=== PATIENT | male | born 1965 | race Caucasian/White ===

== ENCOUNTER 2020-08-13 17:50 | Inpatient (IN) | payer OTHER, SELFPAY ==
[2020-08-13 18:13] LABS: #Lymphocytes 1.3 thou/uL (1.20-3.40); #Monocytes 0.2 thou/uL (0.11-0.59); #Neutrophils 10.4 thou/uL (1.40-6.50); %Basophils 0.1 % (0.0-1.0); %Eosinophils 0.1 % (0.0-10.0); %Lymphocytes 11.1 % (21.0-51.0); %Monocytes 1.9 % (0.0-10.0); %Neutrophils 86.8 % (42.0-75.0); Hemoglobin 15.9 g/dL (14.0-18.0); Mean Corpuscular HGB CONC 33.6 g/dL (32.0-36.0); Mean Corpuscular Hemoglobin 31.7 pg (27.0-31.0); Mean Corpuscular Volume 94.4 fL (78.0-98.0); Mean Platelet Volume 7.8 fL (7.4-10.4); Platelet Count 459 thou/uL (130-400); RBC Distribution Width 12.6 % (11.5-14.5); Red Blood Cell (RBC) Count 5.01 mill/uL (4.70-6.10); White Blood Cell (WBC) Count 11.9 thou/uL (4.8-10.8)
[2020-08-13] MEDS ORDERED: Azithromycin 500 MG VIAL ONE (18:21)
[2020-08-13] MEDS ORDERED: Albuterol 200 PUFF (6.7GM INHALER) ONE ×2 (18:21→18:27)
[2020-08-13] MEDS ORDERED: cefTRIAXone\\ROCEPHIN 2 GM VIAL ONE (18:21)
[2020-08-13] MEDS ORDERED: Dexamethasone 10 MG/ML VIAL ONE (18:21)
[2020-08-13] MEDS ORDERED: Albuterol Sulfate 2.5 mg/3 ml Neb ONE (18:28)
[2020-08-13 18:34] LABS: ALT (SGPT) 160 U/L (8-55); AST (SGOT) 234 U/L (5-34); Albumin 3.5 g/dL (3.5-5.0); Alkaline Phosphatase 94 U/L (40-110); Anion Gap 19 mmol/L (10-20); BUN (Urea Nitrogen) 30 mg/dL (8.4-25.7); Bilirubin, Total 1.9 mg/dL (0.2-1.2); Calc. Creatinine Clearance 0 mL/min (70-130); Calcium 8.3 mg/dL (7.8-10.44); Carbon Dioxide 22 mmol/L (22-29); Chloride 101 mmol/L (98-107); Estimated GFR-MDRD 40; Globulin 4.2 g/dL (2.4-3.5); Glucose 146 mg/dL (70-105); Potassium 3.3 mmol/L (3.5-5.1); Protein, Total 7.7 g/dL (6.0-8.3); Sodium 139 mmol/L (136-145)
[2020-08-13 18:45] LABS: Actual Bicarbonate (HCO3a) 24.1 mEq/L (22-28); Analyzer IN Cardio ER; Base Excess (BEa) 2.4 mEq/L (-2.0 to +3.0); CO2 Tension 29.7 mmHg (35.0-45.0); Calcium, Ionized (arterial) 0.99 mmol/L (1.12-1.30); Carboxyhemoglobin (COHb) 1.1 gm% (0.0-3.0); Hemoglobin (Hb) 14.7 g/dL (14.0-18.0); Potassium - ABG Lab 3.08 mmol/L (3.70-5.30); pH, Arterial 7.53 (7.35-7.45)
[2020-08-13 18:48] LABS: O2 Tension (PaO2), arterial 46.8 mmHg (80.0-100.0)
[2020-08-13 18:49] LABS: ALV-art Gradient 486.475 mmHg (0-20); Puncture Site RRA
--- NOTE | 2020-08-13 18:58 | RAD ---
PORTABLE CHEST: 08/13/20 HISTORY: Cough. No comparison. There are hazy alveolar infiltrates seen in the right mid lung and right lower lung. Ultrasound hazy patchy infiltrates in the left lower lobe. IMPRESSION: Bilateral infiltrates. POS: AGW
[2020-08-13] MEDS ORDERED: Acetaminophen 500 MG TAB ONE (19:18)
[2020-08-13 19:55] LABS: SARS-CoV-2 NAA Rapid Test DETECTED (NotDetected)
--- NOTE | 2020-08-13 20:40 | CT ---
CTA CHEST WITH CONTRAST: 08/13/20 Axial tomograms obtained with multiplanar reconstructions and 3D postprocessing. INDICATIONS: Shortness of breath and cough. Elevated D-dimer. FINDINGS: Pulmonary arteries show adequate opacification. Distal pulmonary arteries are not adequately evaluate d due to the diffuse infiltrates and artifact. There is no evidence of possible pulmonary embolus to the segmental levels. Thoracic aorta is unremarkable. Nonspecific mediastinal and hilar adenopathy. Review of the lung justin show extensive bilateral ground glass infiltrates involving all lobes of ed th lungs. These are more pronounced in the periphery and are consistent with COVID pneumonia. Review of osseous structures show mild compression deformity of a mid thoracic vertebra. IMPRESSION: 1. No evidence of proximal pulmonary embolus to the segmental level. 2. Nonspecific mediastinal and hilar adenopathy. Extensive bilateral ground glass type infiltrat es consistent with COVID pneumonia. POS: AGW
[2020-08-13 21:27] LABS: Lactic Acid 1.9 mmol/L (0.5-2.2)
--- NOTE | 2020-08-13 21:34 | PDOC.FPRHP ---
- History of Present Illness Chief Complaint: SOB History of Present Illness: Patient is a 54 year old male with a history of anxiety and depression who presented to the ED with complains of SOB and cough x 7 days that acutely worsened this am. Denies headache, vision changes, chest pain, palpitations, nausea and diaphoresis. Patient reports pulse ox of 50% at home. EMS was called. Patient placed on nonrebreather with sats mid 80s. ED Course: In the ED, patient was transitioned from nonrebreather to HFNC. Sats remained in 80s with tachypnea, therefore patient was placed on bipap. Sats now 95-100%. Acetaminohpen 1g, Proventil 4 puffs, Azithro 500mg, Rocephin 2g and dexamethasone 10mg were administered - Allergies/Adverse Reactions Allergies Allergy/AdvReac Type Severity Reaction Status Date / Time No Known Drug Allergies Allergy Verified 08/13/20 23:59 - Home Medications Medication Instructions Recorded Confirmed Type Carisoprodol 350 mg PO Q4HR 08/14/20 08/14/20 History Cetirizine HCl [All Day Allergy] 10 mg PO PRN PRN 08/14/20 08/14/20 History Indomethacin 50 mg PO HS 08/14/20 08/14/20 History Zolpidem Tartrate [Ambien CR] 12.5 mg PO HS 08/14/20 08/14/20 History traMADol HCl [Tramadol HCl] 50 mg PO BID PRN 08/14/20 08/14/20 History - History PMHx: Depression, anxiety PSHx: Unable to assess as patient was unable to answer clearly on bipap FHx: Noncontributory Social: Lives at home with . Active smoker. - Review of Systems General: denies: fever/chills, fatigue Eyes: denies: vision changes ENT: denies: nasal congestion, rhinorrhea Respiratory: reports: cough, shortness of breath. denies: congestion Cardiovascular: denies: chest pain, edema Gastrointestinal: denies: nausea, abdominal pain Skin: denies: rashes, jaundice Musculoskeletal: denies: pain Neurological: denies: weakness - Vital signs BP: [111/82] HR: [93] RR: [40] Tmax: [99.8F] Pox: [96]% on [bipap] Wt: [90kg] - Physical Exam Constitutional: NAD -Constitutional: Bipap in place, difficult to communicate answers effectively as a result. Unable to fully assess A&O. HEENT: normocephalic and atraumatic, no scleral icterus, MMM Neck: FROM, trachea midline Chest: no-tender to palpation Heart: no edema -Heart: Unable to assess due to lack of stethoscope Lungs: no respiratory distress, no retractions Abdomen: soft, non-tender Musculoskeletal: normal structure, ROM grossly normal Neurological: no focal deficit Skin: no rash/lesions Heme/Lymphatic: no unusual bruising or bleeding Psychiatric: normal mood and affect FMR H&P: Results - Labs Result Diagrams: 08/15/20 03:03 08/15/20 03:03 Lab results: WBC 11.9 thou/uL (4.8-10.8) H 08/13/20 18:01 Hgb 15.9 g/dL (14.0-18.0) 08/13/20 18:01 Hct 47.3 % (42.0-52.0) 08/13/20 18:01 MCV 94.4 fL (78.0-98.0) 08/13/20 18:01 Plt Count 459 thou/uL (130-400) H 08/13/20 18:01 Neutrophils % 86.8 % (42.0-75.0) H 08/13/20 18:01 ABG pH 7.53 (7.35-7.45) H 08/13/20 18:40 ABG pCO2 29.7 mmHg (35.0-45.0) L 08/13/20 18:40 ABG pO2 46.8 mmHg (80.0-100.0) L* 08/13/20 18:40 Sodium 139 mmol/L (136-145) 08/13/20 18:01 Potassium 3.3 mmol/L (3.5-5.1) L 08/13/20 18:01 Chloride 101 mmol/L (98-107) 08/13/20 18:01 Carbon Dioxide 22 mmol/L (22-29) 08/13/20 18:01 BUN 30 mg/dL (8.4-25.7) H 08/13/20 18:01 Creatinine 1.76 mg/dL (0.7-1.3) H 08/13/20 18:01 Glucose 146 mg/dL (70-105) H 08/13/20 18:01 Lactic Acid 1.9 mmol/L (0.5-2.2) 08/13/20 20:57 Calcium 8.3 mg/dL (7.8-10.44) 08/13/20 18:01 Total Bilirubin 1.9 mg/dL (0.2-1.2) H 08/13/20 18:01 AST 234 U/L (5-34) H 08/13/20 18:01 ALT 160 U/L (8-55) H 08/13/20 18:01 Alkaline Phosphatase 94 U/L (40-110) 08/13/20 18: Serum Total Protein 7.7 g/dL (6.0-8.3) 08/13/20 18:01 Albumin 3.5 g/dL (3.5-5.0) 08/13/20 18:01 - EKG Interpretation EKG: Sinus tachycardia at 109. Premature atrial complex present. FMR H&P: A/P - Plan Acute hypoxic respiratory failure 2/2 COVID Pneumonia Reported symptom onset 08/06. COVID + test on admission 08/13. CXR and CTA showed bilateral infiltrates c/w covid pna, no PE noted. CRP 20. Lactic 2.6- >1.9. ABG showed respiratory alkalosis without metabolic compensation, unsure if was already on bipap at time of draw. - Admit to inpatient IMCU - Received Azithro, Rocephin in ED. Will not continue abx at this time. - Dimer 2.68. Trend daily - Order ferritin, procalcitonin labs - F/u blood culture - Received dexamethasone in ED. Continue on admission. - Order convalescent plasma. Does not meet criteria for remdesivir. - Pulmonology consult in am Elevated liver enzymes AST 234, ALT 160, bili 1.9 in ED. Likely 2/2 COVID - F/u with am labs - No reported hx of liver disease KEYA vs CKD Unknown baseline. Cr 1.76 with BUN 30. - Trend with am labs - Maintenance IVF Indeterminate troponin Denies chest pain. EKG showed t wave inversion in lead 3 with tachycardia, otherwise no ST segment changes. -Trop 0.046, continue to trend Hypokalemia K 3.3 in ED. - Replace with 40meq - Monitor with am labs Thrombocytosis - Likely reactive - Monitor with am labs Anxiety Depression -Medications unknown -Call pharmacy for med rec in am as patient does not know his medication list PCP: Frank DVT PPx: Lovenox Dispo: admit to IMCU on bipap, expected LOS > 48 hours FMR H&P: Upper Level - Plan Date/Time: 08/13/202130 ITraci, have evaluated this patient and agree with findings/plan as outlined by wedding planning internship resident. Pertinent changes/additions are listed here. 54 yo M presents for hypoxia, reported 50% at home, was satting 80s with mask with EMS, now satting well on Bipap. Reports 1 weeks history of symptoms. Patient unable to describe what these symptoms are. History very difficult to obtain from patient due to masks, bipap. Called , but left message. Given tylenol, proventil, azithromycin, ceftriaxone, dexamethasone, 1L in ED PE: Gen: NAD, on bipap HEENT: Moist MM Heart: no stethescope available Lungs: No increased work of breathing, on bipap Abd: soft, nontender Ext: no cyanosis or edema Skin: no rashes Psych: unable to assess alert and oriented questions Acute hypoxic respiratory failure 2/2 COVID Pneumonia - Possible symptoms onset 08/06, COVID + test on admission 08/13 - CXR and CTA with bilateral infiltrates c/w covid pna, no PE - Dimer 2.68, crp 20 - Lactic 2.6->1.9 - ABG showed respiratory alkalosis without metabolic compensation, unsure if was already on bipap when drawn - Pending ferritin and procalcitonin. Blood cx drawn in ED - Dexamethasone, convalescent plasma ordered. Does not meet criteria for remdesivir. - Satting >95% on bipap. Pulmonology consult in am. Elevated liver enzymes - AST 234, ALT 160. Bilirubin was 1.9. - Likely 2/2 above. No known hx liver disease. Trend in am KEYA vs CKD - Unknown baseline - Trend with am labs - Maintenance IVF Indeterminate troponin - 0.046, repeat pending - EKG t wave inversion lead 3, otherwise no acute ST changes Hypokalemia - replace with 40meq and recheck in am Thrombocytosis - Likely reactive Attending: Rambo PCP: Frank Dispo: admit to IMCU on bipap Addendum - Attending - Attending Attestation Date/Time: 08/13/202220 I personally evaluated the patient and discussed the management with resident team I agree with the History, Examination, Assessment and Plan documented above with any addition or exceptions noted below. 54 yo male with acute hypoxic respiratory failure 2/2 COVID19 pneumonia. Now on BiPAP with improvement in oxygenation and respiratory status otherwise. Liver enzymes also elevated. Continue to trend inflammatory markers. Start anticoag. Admit to ICU. Pulm consulted. Awaiting convalesent plasma. Continue dex BID. Start ICU protocols including electrolytes. Rocco
[2020-08-13 22:34] LABS: CKMB 5.9 ng/mL (0-6.6)
[2020-08-13] MEDS ORDERED: Ondansetron PF 4 MG/2 ML Vial IVP PRN (22:59)
[2020-08-13] MEDS ORDERED: Ondansetron ODT 4 MG TAB PO PRN (22:59)
[2020-08-14 01:18] LABS: Troponin I 0.043 ng/mL (< 0.028)
[2020-08-14 01:33] VITALS: BMI 30.2
[2020-08-14] MEDS ORDERED: Albuterol 200 PUFF (6.7GM INHALER) INH PRN (02:23)
[2020-08-14] MEDS ORDERED: Potassium Chloride 40 MEQ in Premix Bag 1 BAG IVPB SCH (02:45)
[2020-08-14] MEDS ORDERED: Potassium Chloride 40 MEQ in Sodium Chloride 0.9% 250 ML 250 ML IVPB SCH (03:00)
[2020-08-14] MEDS: Lactated Ringer's 1,000 ML IV SCH ×2 (03:12→08:49)
[2020-08-14 03:50] LABS: #Lymphocytes 0.7 thou/uL (1.20-3.40); #Monocytes 0.1 thou/uL (0.11-0.59); %Basophils 0.1 % (0.0-1.0); %Eosinophils 0.1 % (0.0-10.0); %Lymphocytes 6.9 % (21.0-51.0); %Monocytes 1.3 % (0.0-10.0); %Neutrophils 91.6 % (42.0-75.0); Hemoglobin 14.5 g/dL (14.0-18.0); Mean Corpuscular HGB CONC 35.5 g/dL (32.0-36.0); Mean Corpuscular Hemoglobin 33.7 pg (27.0-31.0); Mean Corpuscular Volume 95.1 fL (78.0-98.0); Platelet Count 383 thou/uL (130-400); RBC Distribution Width 12.5 % (11.5-14.5); Red Blood Cell (RBC) Count 4.31 mill/uL (4.70-6.10); White Blood Cell (WBC) Count 9.8 thou/uL (4.8-10.8)
[2020-08-14 04:14] LABS: ALT (SGPT) 126 U/L (8-55); AST (SGOT) 144 U/L (5-34); Albumin 3.1 g/dL (3.5-5.0); Alkaline Phosphatase 80 U/L (40-110); Anion Gap 18 mmol/L (10-20); BUN (Urea Nitrogen) 32 mg/dL (8.4-25.7); Calc. Creatinine Clearance 67 mL/min (70-130); Calcium 7.8 mg/dL (7.8-10.44); Carbon Dioxide 22 mmol/L (22-29); Chloride 102 mmol/L (98-107); Estimated GFR-MDRD 46; Globulin 3.6 g/dL (2.4-3.5); Glucose 196 mg/dL (70-105); Potassium 3.7 mmol/L (3.5-5.1); Protein, Total 6.7 g/dL (6.0-8.3); Sodium 138 mmol/L (136-145)
[2020-08-14 04:15] LABS: Troponin I 0.022 ng/mL (< 0.028)
[2020-08-14 05:00] LABS: Bacteria/HPF None Seen HPF (None Seen); Bilirubin Negative (Negative); Blood, Urine 2+ (Negative); Clarity Clear (Clear); Glucose, Urine (Dipstick) Normal (Negative); Ketone, Urine Negative (Negative); Leukocyte Negative Leu/uL (Negative); Nitrite Negative (Negative); Protein, Urine (Dipstick) 100 mg/dL (Neg-Trace); Squamous Epithelial None Seen HPF (0-3); Urobilinogen Normal mg/dL (Less than 2); pH, Urine 5.5 (5.0-9.0)
[2020-08-14 05:01] LABS: Specific Gravity, Urine 1.049 (1.002-1.036)
[2020-08-14] MEDS ORDERED: Dexamethasone Sod Phosphate 4 MG in Sodium Chloride 0.9% 50 ML IVPB SCH ×2 (06:30→21:00)
--- NOTE | 2020-08-14 07:14 | PDOC.FM ---
- Subjective Subjective: Improved this morning, States no SOB, CP, fever/chills, n/v. He is hungry for breakfast. Unsure of exact start of illness date but states about 6 or 7 days ago. His was diagnosed with COVID about 2 weeks ago. He states he would like to be no resuscitation. - Objective MAR Reviewed: Yes Vital Signs & Weight: Vital Signs (12 hours) Temp Pulse Resp Pulse Ox 08/14/20 06:00 98.3 F 25 H 98 08/14/20 05:45 98.5 F 40 H 98 08/14/20 03:01 97.7 F 08/14/20 02:17 78 38 H 98 08/13/20 23:44 83 38 H 97 08/13/20 23:40 98.3 F 98 08/13/20 23:30 98.3 F Weight Weight 90.174 kg Most Recent Monitor Data Heart Rate from ECG 74 NIBP 117/95 NIBP BP-Mean 98 Respiration from ECG 38 SpO2 95 I&O: 08/13/20 08/14/20 08/15/20 06:59 06:59 06:59 Intake Total 0 Balance 0 Result Diagrams: 08/14/20 03:09 08/14/20 03:08 Phys Exam - Physical Examination Constitutional: NAD (resting comfortably with BiPAP in place) HEENT: moist MMs Neck: supple Respiratory: no wheezing, no rales mild course BL breath sounds Cardiovascular: RRR, no significant murmur Gastrointestinal: soft, non-tender, no distention, positive bowel sounds Musculoskeletal: no edema Neurological: moves all 4 limbs Psychiatric: normal affect, A&O x 3 Dx/Plan (1) Pneumonia due to COVID-19 virus Code(s): U07.1 - COVID-19; J12.89 - OTHER VIRAL PNEUMONIA Status: Acute (2) Acute respiratory failure with hypoxia Code(s): J96.01 - ACUTE RESPIRATORY FAILURE WITH HYPOXIA Status: Acute (3) Transaminitis Code(s): R74.01 - ELEVATION OF LEVELS OF LIVER TRANSAMINASE LEVELS Status: Acute (4) KEYA (acute kidney injury) Code(s): N17.9 - ACUTE KIDNEY FAILURE, UNSPECIFIED Status: Acute - Plan Plan: 54yo M with no known PMHx presents for acute hypoxic respiratory failure 2/2 COVID PNA #Acute hypoxic respiratory failure 2/2 COVID Pneumonia - Possible symptoms onset 08/06, COVID + test on admission 08/13. positive about 2 weeks prior to admission - CXR and CTA with bilateral infiltrates c/w covid pna, no PE - Dimer 2.68 -> 2.25, crp 20, ferritin 3476 - Lactic 2.6->1.9 - ABG showed respiratory alkalosis without metabolic compensation and hypoxia - Procal 0.39, BCx pending - Dexamethasone 4mg BID, s/p convalescent plasma. Does not Remdesivir criteria due to elevated LFTs and requirement for noninvasive ventilation at presentation - Satting >95% on bipap at 60% FiO2, 30/04. Will wean to HFNC this AM and rosales nue to wean as tolerated - Pulm consulted, apprec recs #Transaminitis - Unknown baseline, history of EtOH abuse in past but only social drinker for past few years per pt - AST 234 -> 144, ALT 160 -> 126. Bilirubin was 1.9. - Likely 2/2 COVID 19 PNA, will order Hep C, continue to trend #KEYA on suspected CKD - Unknown baseline - Cr 1.76 -> 1.56 - Maintenance IVF, will discontinue when able to take PO well #Indeterminate troponin, resolved - 0.046 -> 0.043 -> 0.022 - EKG t wave inversion lead 3, otherwise no acute ST changes #Hypokalemia, resolved - K 3.7 after replacement, monitor #Thrombocytosis, resolved - Likely reactive and hemoconcentration PCP: Frank IVF: LR @ 125cc/hr Diet: Regular VTE: Lovenox Code: DNR - discussed with patient and after R/B/A wished to proceed with DNR status Dispo: Admitted to IMCU and placed on BiPap. S/p convalescent plasma. On Dexamethasone. Pulm consulted. Wean to HFNC as tolerated. Anticipate LOS > 48 hours. Addendum - Attending - Attending Attestation Date/Time: 08/14/20 [id number] I personally evaluated the patient and discussed the management with Dr. Mayers. I agree with the History, Examination, Assessment and Plan documented above with any addition or exceptions noted below.
[2020-08-14] MEDS ORDERED: FLU VACC QS2020-21(6MOS UP)/PF 60 MCG/0.5 ML SYRINGE IM ONE (09:00)
[2020-08-14] MEDS ORDERED: Enoxaparin Sodium 40 MG/0.4 ML SYRINGE SC SCH (09:00)
[2020-08-14] MEDS ORDERED: Famotidine/PF 20 mg/2ml Vial SLOW IVP SCH (10:00)
--- NOTE | 2020-08-14 10:47 | CON ---
DATE OF CONSULTATION: HISTORY OF PRESENT ILLNESS: Amanuel Roque is a 54-year-old gentleman who presented to the hospital with shortness of breath, fever, and severe hypoxemia. His apparently has merino positive illness 2 weeks ago. The patient was made DNR to my surprise. His saturations on arrival were 63%, fever was , respiratory rate 18, blood pressure 120/80. Additional information is that he is coughing sputum that is relatively clear. PAST MEDICAL HISTORY: Pertinent for anxiety, pain syndrome. SOCIAL HISTORY: No alcohol or tobacco abuse. HOME MEDICINES: 1. Ambien. 2. Soma. 3. Tramadol. PREVIOUS SURGERIES: None. REVIEW OF SYSTEMS: Otherwise, negative. PHYSICAL EXAMINATION: VITAL SIGNS: His saturations are 92% on high flow, blood pressure 143/80, pulse rate of 80. CHEST: Bilateral rhonchi and crackles. CARDIAC: Normal S1 and S2. No gallops. ABDOMEN: Soft. LABORATORY DATA: White count 9000, H and H of 14 and 41, platelet count 386. Creatinine 1.56. AST 144. C-reactive protein is slightly elevated at 20.9. X-ray shows diffuse infiltrates. IMPRESSION: 1. Respiratory failure secondary to merino positive pneumonia. 2. History of depression. PLAN: He is not a candidate for remdesivir, but he has already had convalescent plasma. I will start him on antibiotic, steroids, neb treatments, supportive care. Once again discuss with family whether he is a full code or not. His prognosis is guarded. This is a consultation note, 70 minutes, 50% direct patient care. Job ID: [id number]
[2020-08-14 11:10] LABS: Hep C IgG Ab Non-Reactive (NonReactive); Hep C Index 0.07 S/CO (0-0.79)
[2020-08-14] MEDS: Cefepime 1 GM in Sodium Chloride 0.9% 100 ML IVPB SCH ×2 (12:05→19:51)
[2020-08-14] MEDS: methylPREDNISolone Sod Succ 40 MG VIAL IVP SCH ×2 (12:06→18:31)
[2020-08-14] MEDS: Albuterol 200 PUFF (6.7GM INHALER) INH SCH ×2 (12:06→18:32)
--- NOTE | 2020-08-14 12:39 | PDOC.BPN ---
- Brief Progress Note Encounter Date: 08/14/20 Encounter Time: 11:30 Long discussion with patient regarding code status and advanced directives. Patient initially expressed DNR this morning, then concern for depression leading to status. Discussion with , she states he has been dealing with depression but would not want to be on a ventilator long-term. Went back to talk with patient and he states at this time he would want to be full code, but would not want to be on a ventilator long-term. He plans to have a meeting with his and daughter today to clarify his code status and goals of care and advanced directions. Patient voiced clear understanding of code status options, possibly progression of his disease, and risk of if DNR and DNI. He states he has been dealing with depression but code decision is more of not wanting to have to "live on machines." Answered all questions. Proceed with full code at this time and Palliative care consulted to assist with advanced directives.
[2020-08-14] MEDS: hydrOXYzine Pamoate 25 mg Capsule PO PRN (14:09)
[2020-08-14] MEDS: Mometasone 200 MCG/Formoterol 5 MCG 120 PUFF INHALER INH SCH (18:31)
[2020-08-14] MEDS: Famotidine/PF 20 mg/2ml Vial SLOW IVP SCH (20:11)
[2020-08-14] MEDS: Enoxaparin Sodium 40 MG/0.4 ML SYRINGE SC SCH (20:11)
[2020-08-15] MEDS: Loratadine 10 MG TAB PO PRN (00:02)
[2020-08-15] MEDS: methylPREDNISolone Sod Succ 40 MG VIAL IVP SCH ×5 (00:02→23:01)
[2020-08-15] MEDS: hydrOXYzine Pamoate 25 mg Capsule PO PRN (02:05)
[2020-08-15] MEDS: Albuterol 200 PUFF (6.7GM INHALER) INH SCH ×4 (02:05→19:02)
[2020-08-15 03:31] LABS: #Lymphocytes 0.5 thou/uL (1.20-3.40); #Monocytes 0.2 thou/uL (0.11-0.59); #Neutrophils 9.7 thou/uL (1.40-6.50); %Eosinophils 0.1 % (0.0-10.0); %Lymphocytes 4.6 % (21.0-51.0); %Monocytes 2.3 % (0.0-10.0); Hemoglobin 13.9 g/dL (14.0-18.0); Mean Corpuscular HGB CONC 34.3 g/dL (32.0-36.0); Mean Corpuscular Hemoglobin 32.7 pg (27.0-31.0); Mean Corpuscular Volume 95.3 fL (78.0-98.0); Mean Platelet Volume 8.7 fL (7.4-10.4); Platelet Count 447 thou/uL (130-400); RBC Distribution Width 12.4 % (11.5-14.5); Red Blood Cell (RBC) Count 4.26 mill/uL (4.70-6.10); White Blood Cell (WBC) Count 10.5 thou/uL (4.8-10.8)
[2020-08-15 03:59] LABS: ALT (SGPT) 92 U/L (8-55); AST (SGOT) 69 U/L (5-34); Alkaline Phosphatase 82 U/L (40-110); Anion Gap 17 mmol/L (10-20); BUN (Urea Nitrogen) 28 mg/dL (8.4-25.7); Bilirubin, Total 0.9 mg/dL (0.2-1.2); Calc. Creatinine Clearance 90 mL/min (70-130); Calcium 8.2 mg/dL (7.8-10.44); Carbon Dioxide 18 mmol/L (22-29); Chloride 111 mmol/L (98-107); Estimated GFR-MDRD 64; Globulin 3.7 g/dL (2.4-3.5); Glucose 254 mg/dL (70-105); Potassium 3.9 mmol/L (3.5-5.1); Protein, Total 6.7 g/dL (6.0-8.3); Sodium 142 mmol/L (136-145)
[2020-08-15] MEDS: Acetaminophen 325 MG TAB PO PRN (04:26)
[2020-08-15] MEDS: Mometasone 200 MCG/Formoterol 5 MCG 120 PUFF INHALER INH SCH ×2 (06:01→19:01)
--- NOTE | 2020-08-15 07:07 | PDOC.FM ---
- Subjective Subjective: Overnight patient did not get much sleep, states has been anxious, jittery, and experiencing insomnia. Admits to taking prescribed tramadol, soma, and ambien daily but also taking non-prescribed xanax at least 2mg daily as well as percocet infrequently. He states he realizes he has a "pill problem" and sees he needs to get control of this. He talked to family yesterday about getting clean and getting help. He states his respiratory status is improved, denies CP, SOB, n/v, fever/chills. Endorses little appetite. Endorses mild abd bloating, no pain. - Objective MAR Reviewed: Yes Vital Signs & Weight: Vital Signs (12 hours) Temp Pulse Ox 08/15/20 05:00 98.5 F 08/15/20 04:00 99.5 F 08/15/20 02:40 96 08/15/20 01:00 98.8 F 08/14/20 22:50 98.0 F 08/14/20 20:00 98 Weight Weight 90.174 kg Most Recent Monitor Data Heart Rate from ECG 83 NIBP 163/89 NIBP BP-Mean 113 Respiration from ECG 37 SpO2 97 I&O: 08/14/20 08/15/20 08/16/20 06:59 06:59 06:59 Intake Total 910 3250 Output Total 650 1900 Balance 260 1350 Result Diagrams: 08/15/20 03:03 08/15/20 03:03 Phys Exam - Physical Examination Constitutional: NAD (slightly anxious appearing) HFNC in place Neck: supple Respiratory: no wheezing, no rales, no rhonchi, clear to auscultation bilateral Cardiovascular: RRR, no significant murmur Gastrointestinal: soft, non-tender, positive bowel sounds mild distention Musculoskeletal: no edema Neurological: moves all 4 limbs No tremor Psychiatric: normal affect, A&O x 3 Deviation from normal: anxious Dx/Plan (1) Pneumonia due to COVID-19 virus Code(s): U07.1 - COVID-19; J12.89 - OTHER VIRAL PNEUMONIA Status: Acute (2) Acute respiratory failure with hypoxia Code(s): J96.01 - ACUTE RESPIRATORY FAILURE WITH HYPOXIA Status: Acute (3) Transaminitis Code(s): R74.01 - ELEVATION OF LEVELS OF LIVER TRANSAMINASE LEVELS Status: Acute (4) KEYA (acute kidney injury) Code(s): N17.9 - ACUTE KIDNEY FAILURE, UNSPECIFIED Status: Acute - Plan Plan: 54yo M with no known PMHx presents for acute hypoxic respiratory failure 2/2 COVID PNA #Acute hypoxic respiratory failure 2/2 COVID Pneumonia, improved - Possible symptoms onset 08/08 per , COVID + test on admission 08/13. positive about 2 weeks prior to admission - CXR and CTA with bilateral infiltrates c/w covid pna, no PE - Dimer 2.68 -> 2.25, crp 20, ferritin 3476, Lactic 2.6->1.9 - ABG showed respiratory alkalosis without metabolic compensation and hypoxia - Procal 0.39, BCx pending - s/p dexa, now on solumedrol 40mg q6h - Transitioned from Bipap to HFNC yesterday, 60L/80% satting upper 90s, will wean as tolerated - Dulera and albuterol schd - Pulm consulted, added Doxy and Cefepime (08/14), apprec recs #Transaminitis, improved - Unknown baseline, history of EtOH abuse in past but only social drinker for past few years per pt - AST 234 -> 144 -> 64, ALT 160 -> 126 ->92. Bilirubin was 1.9. - Likely 2/2 COVID 19 PNA - Hep C negative #KEYA on suspected CKD - Unknown baseline - Cr 1.76 -> 1.56 -> 1.17 - Off IVF, encourage PO intake, monitor #Poly substance Abuse - Admits to non-prescribed xanax use, multiple mg per day for past few years, as well as non-prescribed percocet use - Rx for Ambien, Soma, and tramadol from PCP - Will start ASE protocol and Serax 30mg TID to titrate down over next few days - monitor closely for s/s of benzo withdrawal #Indeterminate troponin, resolved - 0.046 -> 0.043 -> 0.022 - EKG t wave inversion lead 3, otherwise no acute ST changes #Hyperglycemia - likely 2/2 acute stress and steroids - SS and hypoglycemia protocol #Non Anion Gap Metabolic Acidosis - Bicarb 18 - Suspect compensation from respiratory acidosis, will monitor, consider ABG if clinically indicated PCP: Frank IVF: SL Diet: Regular VTE: Lovenox 40mg BID GI PPX: Pepcid 20mg IV BID Code: Full Dispo: Admitted to IMCU and placed on BiPap. S/p convalescent plasma. On Dexamethasone. Pulm consulted. Wean to HFNC as tolerated. Anticipate LOS > 48 ho urs. Addendum - Attending - Attending Attestation Date/Time: 08/15/20 7937 I personally evaluated the patient and discussed the management with Dr. Mayers. I agree with the History, Examination, Assessment and Plan documented above with any addition or exceptions noted below.
[2020-08-15] MEDS ORDERED: Melatonin 3 MG TAB PO PRN (07:56)
[2020-08-15] MEDS ORDERED: Dexamethasone 4 MG TAB PO SCH (08:00)
[2020-08-15] MEDS ORDERED: Dextrose 50% Abboject 50 ML SYRINGE SLOW IVP PRN (08:18)
[2020-08-15] MEDS ORDERED: Dextrose 5% in Water 1,000 ML IV PRN (08:18)
--- NOTE | 2020-08-15 09:21 | PRG ---
DATE OF SERVICE: 08/15/2020 SUBJECTIVE: Amanuel Roque is a 54-year-old gentleman. This morning, he looks better. OBJECTIVE: VITAL SIGNS: Temperature 98, pulse 83, blood pressure 163/83 saturations 96%. CHEST: Decreased breath sounds. No wheezing. No crackles. CARDIAC: Normal S1, normal S2. No gallops. ABDOMEN: Soft. No masses. LABORATORY DATA: Blood sugar is 254. Liver function, AST and ALT have decreased to 69 and 92 respectively. White count is only 10,000. IMPRESSION AND PLAN: Garcia positive pneumonia, respiratory failure, acute respiratory distress syndrome, better. Continue high-dose steroids, antibiotics, supportive care. His liver function is abnormal, probably from drinking in the past. We will follow. Job ID: [id number]
[2020-08-15 09:46] LABS: Hemoglobin A1c 5.8 % (4.0-6.0)
[2020-08-15] MEDS: Enoxaparin Sodium 40 MG/0.4 ML SYRINGE SC SCH ×2 (10:53→20:16)
[2020-08-15] MEDS: Oxazepam 10 MG CAP PO SCH ×3 (10:53→20:16)
[2020-08-15] MEDS: Famotidine/PF 20 mg/2ml Vial SLOW IVP SCH ×2 (10:53→20:17)
[2020-08-15] MEDS: Cefepime 1 GM in Sodium Chloride 0.9% 100 ML IVPB SCH ×2 (10:54→20:15)
--- NOTE | 2020-08-15 14:28 | PDOC.PALCO ---
Palliative Care Consult - Consult Details Reason for Consult: goals of care, advance directives assistance - Pertinent HPI Mr Roque is a 54 year old male who presented to the emergency room with a 7 day history of shortness of breath, cough, and fever the past 7 days that progressively became worse. Known Covid exposure in home setting. EMS was called and found to have a poor O2 saturation, non re breather was placed and transferred to [facility]. Admitted and place on High Flow NC transition to BIPAP. Antibiotic therapy and steroids initiated. - Pertinent PMH Depression, anxiety - Social History Smoking Status: Current every day smoker Smoking: greater than 1 pack/day Alcohol Use: other (previous) Living Situation: - Medications MAR Reviewed: Yes - Allergies Allergies/Adverse Reactions: Allergies Allergy/AdvReac Type Severity Reaction Status Date / Time No Known Drug Allergies Allergy Verified 08/13/20 23:59 - Subjective Mildly short of breath that increases with conversation. Weakness. In conversation flight of ideas and difficult to track conversation. - ROS Constitutional: alert, weakness ENT: nose congestion Respiratory: dry cough, shortness of breath with extertion Cardiology: other (Deneis chest pain or palpitations) Genitourinary: other (Denies incontinence, dysuria) - Objective Vital Signs: Vital Signs - Most Recent Temp Pulse Resp BP Pulse Ox 98.2 F 78 30 H 98 08/15/20 08:00 08/14/20 02:17 08/14/20 06:36 08/15/20 07:58 Palliative Performance Scale: 70 - Physical Exam Constitutional: ill appearing, mild distress HEENT: EOMI, moist MMs, sclera anicteric Respiratory: no rales, no rhonchi, diminished lung sound, labored respirations, tachypnea Cardiovascular: RRR Gastrointestinal: continent, soft, non-tender, positive bowel sounds Genitourinary: continent Musculoskeletal: no cyanosis, no clubbing Neurology: moves all 4 limbs, no focal deficits Skin: cap refill <2 seconds Deviation from normal: Flight of ideas - Problem List (1) Palliative care encounter Code(s): Z51.5 - ENCOUNTER FOR PALLIATIVE CARE Current Visit: Yes Status: Acute (2) Acute respiratory failure with hypoxia Code(s): J96.01 - ACUTE RESPIRATORY FAILURE WITH HYPOXIA Current Visit: Yes Status: Acute (3) Pneumonia due to COVID-19 virus Code(s): U07.1 - COVID-19; J12.89 - OTHER VIRAL PNEUMONIA Current Visit: Yes Status: Acute (4) Transaminitis Code(s): R74.01 - ELEVATION OF LEVELS OF LIVER TRANSAMINASE LEVELS Current Visit: Yes Status: Acute - Plan/Recommendations Plan: Introduced Palliative Care to patient. In conversation he was having a difficult time answering questions,.Specifically in relation to health care, need for current treatments. Was unable to correlate cause and effect of treatment. Flight of ideas, forgetful thought pattern in conversation. It appears that Mr Roque may not have the medical capacity to make decisions in relation to his resuscitation status. Thus unable for him, at this time, to complete Directive to physician. He states that his is his surrogate decision maker, and as she is his spouse by [place] law would be designated as such. It would be suggested to have Mrs Roque assist in pivotal decisions such as resuscitation status secondary to Mr Roque's inability to comprehend recovering from Covid and outcome from non aggressive measures. He was unable to perform teach back or relay cause and effect. Palliative Care will sign off, as stated it is recommended that Mrs Roque be surrogate decision maker at this time for Mr Roque. [55] minutes spent on this encounter with >50% of the time in counseling and coordination of care. Thank you for this very appropriate consult.
[2020-08-15] MEDS ORDERED: Non-Formulary Item 1 EACH (Zolpidem Tartrate [Ambien Cr] 12.5 MG Tab.Mphase) PO SCH (21:00)
[2020-08-15] MEDS ORDERED: Zolpidem Tartrate 5 MG TAB PO SCH ×3 (21:00→23:00)
[2020-08-16] MEDS: Albuterol 200 PUFF (6.7GM INHALER) INH SCH ×4 (00:17→21:09)
[2020-08-16 03:51] LABS: #Eosinphils 0.1 thou/uL (0.0-0.7); #Lymphocytes 0.6 thou/uL (1.20-3.40); #Monocytes 0.3 thou/uL (0.11-0.59); #Neutrophils 10.7 thou/uL (1.40-6.50); %Eosinophils 0.4 % (0.0-10.0); %Lymphocytes 4.9 % (21.0-51.0); %Monocytes 2.8 % (0.0-10.0); %Neutrophils 91.8 % (42.0-75.0); Hemoglobin 14.4 g/dL (14.0-18.0); Mean Corpuscular HGB CONC 34.9 g/dL (32.0-36.0); Mean Corpuscular Hemoglobin 33.4 pg (27.0-31.0); Mean Corpuscular Volume 95.7 fL (78.0-98.0); Mean Platelet Volume 8.5 fL (7.4-10.4); Platelet Count 489 thou/uL (130-400); RBC Distribution Width 12.2 % (11.5-14.5); Red Blood Cell (RBC) Count 4.31 mill/uL (4.70-6.10); White Blood Cell (WBC) Count 11.6 thou/uL (4.8-10.8)
[2020-08-16 03:56] LABS: ALT (SGPT) 106 U/L (8-55); AST (SGOT) 99 U/L (5-34); Alkaline Phosphatase 97 U/L (40-110); Anion Gap 18 mmol/L (10-20); BUN (Urea Nitrogen) 26 mg/dL (8.4-25.7); Bilirubin, Total 1.2 mg/dL (0.2-1.2); CRP (Inflammatory) 4.53 mg/dL (= or < 0.5); Calc. Creatinine Clearance 100 mL/min (70-130); Carbon Dioxide 18 mmol/L (22-29); Chloride 109 mmol/L (98-107); Estimated GFR-MDRD 73; Globulin 3.6 g/dL (2.4-3.5); Glucose 271 mg/dL (70-105); Potassium 4.5 mmol/L (3.5-5.1); Protein, Total 6.6 g/dL (6.0-8.3); Sodium 140 mmol/L (136-145)
[2020-08-16] MEDS: methylPREDNISolone Sod Succ 40 MG VIAL IVP SCH ×2 (05:46→21:11)
[2020-08-16] MEDS: HumaLOG 300 UNITS/3 ML VIAL SC PRN ×2 (05:46→22:21)
[2020-08-16] MEDS: Benzonatate 100 MG CAP PO PRN (05:46)
[2020-08-16] MEDS: Mometasone 200 MCG/Formoterol 5 MCG 120 PUFF INHALER INH SCH ×2 (05:55→21:09)
--- NOTE | 2020-08-16 07:24 | PDOC.FM ---
- Subjective Subjective: This morning he is improved. Able to sleep some overnight, did not require Ambien. Had long discussion with patient and yesterday regarding possible harm of polypharmacy of his both prescribed and non-prescribed medications. Patient expressed some suicidal ideation with vague plan to "go out into the [place] with his gun and end it." This morning patient denies any SI/HI. Patient mood seems to fluctuate rapidly from calm to agitated. This morning patient understands current situation and management. Tolerating PO. Voiding and stooling. No CP, n/v, abd pain, PERRY, vision changes. Denies SOB. - Objective MAR Reviewed: Yes Vital Signs & Weight: Vital Signs (12 hours) Temp Pulse Ox 08/16/20 04:00 98.8 F 08/16/20 00:00 97.7 F 96 08/15/20 20:00 97.6 F 97 Weight Weight 90.174 kg Most Recent Monitor Data Heart Rate from ECG 82 NIBP 171/99 NIBP BP-Mean 123 Respiration from ECG 36 SpO2 90 I&O: 08/15/20 08/16/20 08/17/20 06:59 06:59 06:59 Intake Total 3250 1750 Output Total 1900 1750 Balance 1350 0 Result Diagrams: 08/16/20 03:27 08/16/20 03:27 Phys Exam - Physical Examination Constitutional: NAD (resting, slightly jittery) HEENT: moist MMs HFNC in place Neck: supple Respiratory: no wheezing, no rales, no rhonchi, clear to auscultation bilateral Cardiovascular: RRR, no significant murmur Gastrointestinal: soft, non-tender, no distention (mild distention), positive bowel sounds Musculoskeletal: no edema Neurological: moves all 4 limbs Deviation from normal: anxious, denies SI/HI this AM Dx/Plan (1) Pneumonia due to COVID-19 virus Code(s): U07.1 - COVID-19; J12.89 - OTHER VIRAL PNEUMONIA Status: Acute (2) Acute respiratory failure with hypoxia Code(s): J96.01 - ACUTE RESPIRATORY FAILURE WITH HYPOXIA Status: Acute (3) Transaminitis Code(s): R74.01 - ELEVATION OF LEVELS OF LIVER TRANSAMINASE LEVELS Status: Ac casey (4) KEYA (acute kidney injury) Code(s): N17.9 - ACUTE KIDNEY FAILURE, UNSPECIFIED Status: Acute - Plan Plan: 54yo M with no known PMHx presents for acute hypoxic respiratory failure 2/2 COVID PNA #Acute hypoxic respiratory failure 2/2 COVID Pneumonia, improved - Possible symptoms onset 08/08 per , COVID + test on admission 08/13. positive about 2 weeks prior to admission - CXR and CTA with bilateral infiltrates c/w covid pna, no PE - Dimer 2.68 -> 2.25, crp 20, ferritin 3476, Lactic 2.6->1.9 - ABG at admission showed respiratory alkalosis without metabolic compensation and hypoxia - Procal 0.39, BCx NGTD - s/p dexa, now on solumedrol 40mg q6h - Transitioned from Bipap to HFNC, 50L/60% satting mid 90s, will continue to wean as tolerated - Dulera and albuterol schd - Pulm consulted, added Doxy and Cefepime (08/14), apprec recs - Consider transfer to floor today pending resp status #Transaminitis, improved - Unknown baseline, history of EtOH abuse in past but only social drinker for past few years per pt - AST 234 -> 144 -> 64 -> 99, ALT 160 -> 126 ->92 -> 106. Bilirubin was 1.9 -> 1.2. - Likely 2/2 COVID 19 PNA vs underlying liver disease - Hep C negative #KEYA, resolved - Cr 1.76 -> 1.56 -> 1.17 -> 1.05 - Off IVF, encourage PO intake, monitor #Poly substance Abuse - Admits to non-prescribed xanax use, multiple mg per day for past few years, as well as non-prescribed percocet use - Rx for Ambien, Soma, and tramadol from PCP - Will start ASE protocol and Serax 30mg TID to titrate down over next few days to week - Case management to provide drug rehab information - monitor closely for s/s of benzo withdrawal #Indeterminate troponin, resolved - 0.046 -> 0.043 -> 0.022 - EKG t wave inversion lead 3, otherwise no acute ST changes #Hyperglycemia - likely 2/2 acute stress and steroids, monitor - A1C 5.8 #Non Anion Gap Metabolic Acidosis - Bicarb 18 - Suspect compensation from respiratory acidosis, will monitor, consider ABG if clinically indicated #Hypertension - likely underlying and undiagnosed - Will start HCTZ and monitor #Depression - No formal diagnosis, but transient episodes of SI - Will consult MHMR when medically cleared to eval prior to discharge. Need to provide with resources moving forward. PCP: Frank IVF: SL Diet: Regular VTE: Lovenox 40mg BID GI PPX: Pepcid 20mg IV BID Code: Full Dispo: Admitted to IMCU and placed on BiPap. S/p convalescent plasma. On Dexamethasone. Pulm consulted. Wean to HFNC as tolerated. Anticipate LOS > 48 hours. Possible transfer to floor today pending resp status. Addendum - Attending - Attending Attestation Date/Time: 08/16/20 2289 I personally evaluated the patient and discussed the management with Dr. Mayers. I agree with the History, Examination, Assessment and Plan documented above with any addition or exceptions noted below. Patient overall stable. Continue HFNC as tolerated, Pulm on board for assistance with his COVID hypoxic respiratory failure.
--- NOTE | 2020-08-16 07:44 | RAD ---
XR Chest 1 View Portable History: Pneumonia Comparison: Radiograph August 13, 2020 Findings: Multifocal predominantly lower lobe airspace opacities as well as right upper lobe airspace opacity are all similar. No pneumothorax. Trace effusions. Heart size is similar. No acute osseous abnormality. Impression: Similar examination of the chest without significant change in lung aeration.
[2020-08-16] MEDS: Famotidine/PF 20 mg/2ml Vial SLOW IVP SCH ×2 (10:16→21:11)
[2020-08-16] MEDS: Hydrochlorothiazide 25 MG TAB PO SCH (10:16)
[2020-08-16] MEDS: Enoxaparin Sodium 40 MG/0.4 ML SYRINGE SC SCH ×2 (10:16→21:10)
[2020-08-16] MEDS: Oxazepam 10 MG CAP PO SCH ×3 (10:18→21:12)
[2020-08-16] MEDS: Cefepime 1 GM in Sodium Chloride 0.9% 100 ML IVPB SCH ×2 (10:42→21:10)
--- NOTE | 2020-08-16 11:35 | PRG ---
DATE OF SERVICE: 08/16/2020 SUBJECTIVE: This morning, he is awake, alert, and responsive. He is doing better. OBJECTIVE: VITAL SIGNS: He desats when he is walking. He is on flow rate of 50% to 55%, saturations 90%, blood pressure 171/99, . CHEST: No wheezing. No crackles. CARDIAC: Normal S1 and S2. No gallops. ABDOMEN: No masses. LABORATORY DATA: Lytes are unremarkable. His C-reactive protein is down to 4.5. Liver functions are still elevated. ASSESSMENT: Garcia positive pneumonia, abnormal liver function, respiratory failure. PLAN: Continue steroids, antibiotics, supportive care. No changes in medication for the next several days. Job ID: [id number]
[2020-08-16] MEDS: Zolpidem Tartrate 5 MG TAB PO PRN (15:43)
[2020-08-17] MEDS: Albuterol 200 PUFF (6.7GM INHALER) INH SCH ×4 (01:29→20:50)
[2020-08-17 04:03] LABS: Band 1 % (5-11); Lymphocytes 5 % (21-51); MDiff Complete? YES; Mean Corpuscular HGB CONC 34.6 g/dL (32.0-36.0); Mean Corpuscular Hemoglobin 32.2 pg (27.0-31.0); Mean Corpuscular Volume 93.2 fL (78.0-98.0); Mean Platelet Volume 8.2 fL (7.4-10.4); Monocytes 1 % (0-10); Neutrophil 93 % (42-75); Platelet Count 515 thou/uL (130-400); Platelet Morphology Comment Appears Increased; RBC Distribution Width 12.3 % (11.5-14.5); Red Blood Cell (RBC) Count 4.65 mill/uL (4.70-6.10); White Blood Cell (WBC) Count 10.7 thou/uL (4.8-10.8)
[2020-08-17 04:08] LABS: ALT (SGPT) 141 U/L (8-55); AST (SGOT) 115 U/L (5-34); Albumin 3.2 g/dL (3.5-5.0); Alkaline Phosphatase 107 U/L (40-110); Anion Gap 20 mmol/L (10-20); BUN (Urea Nitrogen) 23 mg/dL (8.4-25.7); Bilirubin, Total 1.4 mg/dL (0.2-1.2); CRP (Inflammatory) 9.59 mg/dL (= or < 0.5); Calc. Creatinine Clearance 97 mL/min (70-130); Calcium 8.4 mg/dL (7.8-10.44); Carbon Dioxide 17 mmol/L (22-29); Chloride 104 mmol/L (98-107); Estimated GFR-MDRD 70; Globulin 3.7 g/dL (2.4-3.5); Glucose 252 mg/dL (70-105); Potassium 3.8 mmol/L (3.5-5.1); Protein, Total 6.9 g/dL (6.0-8.3); Sodium 137 mmol/L (136-145)
[2020-08-17] MEDS: HumaLOG 300 UNITS/3 ML VIAL SC PRN (05:15)
[2020-08-17] MEDS: Mometasone 200 MCG/Formoterol 5 MCG 120 PUFF INHALER INH SCH ×2 (05:20→20:50)
--- NOTE | 2020-08-17 06:08 | PDOC.FM ---
- Subjective Subjective: Reports feeling about the same as yesterday however his HFNC was turned up to 60L and 80% FiO2. Reports last BM a couple days ago but does not want stool softener. Abdominal soreness from breathing. Otherwise no complaints. - Objective MAR Reviewed: Yes Vital Signs & Weight: Vital Signs (12 hours) Temp Pulse Ox 08/17/20 03:07 98.9 F 08/17/20 01:07 92 L 08/17/20 00:00 98.9 F 08/16/20 20:00 99.7 F H 94 L Weight Weight 90.174 kg Most Recent Monitor Data Heart Rate from ECG 113 NIBP 157/112 NIBP BP-Mean 127 Respiration from ECG 39 SpO2 90 I&O: 08/15/20 08/16/20 08/17/20 06:59 06:59 06:59 Intake Total 3250 1750 980 Output Total 1900 1750 2050 Balance 1350 0 -1070 Result Diagrams: 08/17/20 03:02 08/17/20 03:02 Phys Exam - Physical Examination HFNC in place, abdominal breathing. Mild resp distress HEENT: sclera anicteric Neck: supple scatter rhonchi Cardiovascular: RRR, no significant murmur Gastrointestinal: soft, positive bowel sounds Musculoskeletal: no edema Neurological: non-focal, moves all 4 limbs Psychiatric: normal affect, A&O x 3 Skin: no rash Dx/Plan - Plan Plan: 54yo male admitted for acute hypoxic respiratory failure 2/2 COVID PNA Acute hypoxic respiratory failure 2/2 COVID Pneumonia, improved - Symptom onset: 08/08 per , COVID + test on admission 08/13. positive ~2wks prior to admission - CXR & CTA with bilateral infiltrates c/w covid pna, no PE - Dimer 2.68 -> 2.25, crp 20, ferritin 3476, Lactic 2.6->1.9 - ABG at admission showed respiratory alkalosis without metabolic compensation and hypoxia - Procal 0.39, BCx NGTD - s/p dexa, now on solumedrol 40mg q6h - Transitioned from Bipap to HFNC, 50L/60% satting mid 90s, will continue to wean as tolerated - Dulera and albuterol schd - Pulm consulted, added Doxy and Cefepime (08/14), apprec recs - Consider transfer to floor today pending resp status Polysubstance Abuse - Admits to non-prescribed xanax use, multiple mg per day for past few years, as well as non-prescribed percocet use - Rx for Ambien, Soma, and tramadol from PCP - Continue ASE protocol, decrease Serax to 20mg TID and continue to titrate down over next few days to week - to provide drug rehab info - monitor closely for s/s of benzo withdrawal Indeterminate troponin, resolved - 0.046 -> 0.043 -> 0.022 - EKG t wave inversion lead 3, otherwise no acute ST changes Hyperglycemia - likely 2/2 acute stress and steroids, monitor - A1C 5.8 Non Anion Gap Metabolic Acidosis - Bicarb 18 - Suspect compensation from respiratory acidosis, will monitor, consider ABG if clinically indicated Hypertension - Continue HCTZ Depression - No formal diagnosis, but transient episodes of SI - Will consult MHMR when medically cleared to eval prior to discharge. Need to provide with resources moving forward. Transaminitis, improved - Likely 2/2 COVID 19 PNA KEYA, resolved IVF: SL DVT ppx: Lovenox 40mg BID Code Status: Full PCP: Frank Addendum - Attending - Attending Attestation Date/Time: 08/17/20 3267 I personally evaluated the patient and discussed the management with Dr. Oswald. I agree with the History, Examination, Assessment and Plan documented above with any addition or exceptions noted below. Patient with some worsening in O2 status overnight. HFNC settings adjusted, O2 sats still in high 80s. Pulm on board. Continue steroids and abx and supportive care for his COVID hypoxic resp failure.
[2020-08-17] MEDS: Enoxaparin Sodium 40 MG/0.4 ML SYRINGE SC SCH ×2 (08:21→20:43)
[2020-08-17] MEDS: methylPREDNISolone Sod Succ 40 MG VIAL IVP SCH ×2 (08:21→20:44)
[2020-08-17] MEDS: Hydrochlorothiazide 25 MG TAB PO SCH (08:21)
[2020-08-17] MEDS: Famotidine/PF 20 mg/2ml Vial SLOW IVP SCH ×2 (08:21→20:44)
[2020-08-17] MEDS: Oxazepam 10 MG CAP PO SCH ×4 (08:22→20:44)
[2020-08-17] MEDS: Cefepime 1 GM in Sodium Chloride 0.9% 100 ML IVPB SCH ×2 (08:23→20:45)
[2020-08-17] MEDS ORDERED: Insulin Glargine 10 UNITS in Pre-Filled Syringe 1 EACH SC SCH (09:00)
--- NOTE | 2020-08-17 12:08 | PRG ---
DATE OF SERVICE: 08/17/2020 SUBJECTIVE: Mr. Roque continues to receive significant ventilatory support including high-flow nasal cannula 60 L at 75%. He has fairly brisk desaturation whenever he removes his oxygen. OBJECTIVE: VITAL SIGNS: Blood pressure today 157/118 to 166/103. Heart rate is in the 97 to 110 range. Oxygen saturation 99%. GENERAL: He is awake and alert. He is mildly dyspneic. LUNGS: Show bilateral rhonchi, but no wheezing. HEART: Regular rate and rhythm with resting tachycardia. ABDOMEN: Soft. There is no organomegaly. EXTREMITIES: He has no edema. LABORATORY DATA: White count 10,700; hemoglobin 15 and hematocrit 43.3; platelet count 415,000. Electrolytes include sodium 137, potassium 3.8, chloride 104, CO2 is 17, BUN 23, and creatinine 1.1. Liver tests are mildly elevated including AST 115 and ALT of 141. There is no chest x-ray today. X-ray yesterday had demonstrated multilobar consolidations, most notable in the right upper lung. IMPRESSION: 1. COVID pneumonia. 2. Hypertension. PLAN: We will continue current therapies including high-flow oxygen. He is not in need of invasive ventilatory support. He has received high-dose dexamethasone. He is medically quasi stable, but not yet ready for the medical floor. Job ID: [id number]
[2020-08-17] MEDS: Zolpidem Tartrate 5 MG TAB PO PRN (20:44)
[2020-08-18] MEDS: Albuterol 200 PUFF (6.7GM INHALER) INH SCH ×4 (02:39→20:56)
--- NOTE | 2020-08-18 05:43 | PDOC.FM ---
- Subjective Subjective: HFNC was turned up yesterday. He endorses SOB but feels his symptoms are stable. Reports having BMs, no complaints. - Objective MAR Reviewed: Yes Vital Signs & Weight: Vital Signs (12 hours) Temp Pulse Ox 08/18/20 01:57 CDT 91 L 08/18/20 00:00 98.5 F 08/17/20 20:00 98.7 F 97 Weight Weight 90.174 kg Most Recent Monitor Data Heart Rate from ECG 112 NIBP 127/94 NIBP BP-Mean 105 Respiration from ECG 30 SpO2 89 I&O: 08/16/20 08/17/20 08/18/20 06:59 06:59 05:59 Intake Total 1750 1280 Output Total 1750 2050 700 Balance 0 -770 -700 Result Diagrams: 08/17/20 03:02 08/18/20 06:43 Phys Exam - Physical Examination Constitutional: NAD HEENT: sclera anicteric Neck: supple Diffusely coarse breath sounds Cardiovascular: RRR, no significant murmur Gastrointestinal: soft Musculoskeletal: no edema Neurological: non-focal Psychiatric: normal affect, A&O x 3 Skin: normal turgor Dx/Plan - Plan Plan: 54yo male admitted for acute hypoxic respiratory failure 2/2 COVID PNA Acute hypoxic respiratory failure 2/2 COVID Pneumonia, improved - Symptom onset: 08/08 per , COVID + test on admission 08/13. positive ~2wks prior to admission - Continue solumedrol 40mg q6h - Wean from HFNC as tolerated - Dulera and albuterol schd - Pulm consulted, added Doxy and Cefepime (08/14), apprec recs Polysubstance Abuse - Admits to non-prescribed xanax use, multiple mg per day for past few years, as well as non-prescribed percocet use - Rx for Ambien, Soma, and tramadol from PCP - Continue Serax 20mg TID- can decrease to 10mg TID on 08/19 - CM to provide drug rehab info Indeterminate troponin, resolved - 0.046 -> 0.043 -> 0.022 - EKG t wave inversion lead 3, otherwise no acute ST changes Hyperglycemia - likely 2/2 acute stress and steroids, monitor - A1C 5.8 Non Anion Gap Metabolic Acidosis - Bicarb 18 - Suspect compensation from respiratory acidosis, will monitor, consider ABG if clinically indicated Hypertension - Continue HCTZ Depression - No formal diagnosis, but transient episodes of SI - Will consult MHMR when medically cleared to eval prior to discharge. Need to provide with resources moving forward. Transaminitis, improved - Likely 2/2 COVID 19 PNA KEYA, resolved IVF: SL DVT ppx: Lovenox 40mg BID Code Status: Full PCP: Frank Addendum - Attending - Attending Attestation Date/Time: 08/18/20 6234 I personally evaluated the patient and discussed the management with Dr. Oswald. I agree with the History, Examination, Assessment and Plan documented above with any addition or exceptions noted below. Continue supportive treatment for hypoxia from COVID pneumonia.
[2020-08-18 07:35] LABS: ALT (SGPT) 87 U/L (8-55); AST (SGOT) 40 U/L (5-34); Albumin 3.1 g/dL (3.5-5.0); Alkaline Phosphatase 90 U/L (40-110); Anion Gap 18 mmol/L (10-20); BUN (Urea Nitrogen) 27 mg/dL (8.4-25.7); Calc. Creatinine Clearance 97 mL/min (70-130); Calcium 8.4 mg/dL (7.8-10.44); Carbon Dioxide 18 mmol/L (22-29); Chloride 105 mmol/L (98-107); Estimated GFR-MDRD 70; Globulin 3.9 g/dL (2.4-3.5); Glucose 222 mg/dL (70-105); Potassium 3.6 mmol/L (3.5-5.1); Sodium 137 mmol/L (136-145)
[2020-08-18] MEDS: Oxazepam 10 MG CAP PO SCH ×3 (08:13→20:57)
[2020-08-18] MEDS: methylPREDNISolone Sod Succ 40 MG VIAL IVP SCH ×2 (08:13→20:57)
[2020-08-18] MEDS: Hydrochlorothiazide 25 MG TAB PO SCH (08:13)
[2020-08-18] MEDS: Enoxaparin Sodium 40 MG/0.4 ML SYRINGE SC SCH ×2 (08:13→20:56)
[2020-08-18] MEDS: Famotidine/PF 20 mg/2ml Vial SLOW IVP SCH ×2 (08:13→20:56)
[2020-08-18] MEDS: Mometasone 200 MCG/Formoterol 5 MCG 120 PUFF INHALER INH SCH ×2 (08:14→17:45)
--- NOTE | 2020-08-18 08:49 | PRG ---
DATE OF SERVICE: 08/18/2020 SUBJECTIVE: Mr. Roque continues to receive high-flow nasal cannula currently 50 L at FiO2 of 80%. He has very brisk desaturations with even temporary removal of the oxygen. He is not having any cough or sputum. He has not had any objective fevers or chills. OBJECTIVE: VITAL SIGNS: Blood pressure is 146/106, heart rate is 105, saturation 96%, respiratory rate is 25. HEENT: Shows no adenopathy. LUNGS: Show coarse rhonchi bilaterally. HEART: Regular rate and rhythm. There is no murmur. He is on minimal antihypertensive regimen. LABORATORY DATA: Chemistry panel today includes sodium 134, potassium 3.6, chloride 105, CO2 is 18. This has been a mild persistent acidemia. BUN is 27, creatinine 1.1. Liver tests are trending downward and almost normalized. CRP remains elevated, in fact now up to 14. He does not have an x-ray today. IMPRESSION: 1. COVID pneumonia. 2. Transaminitis, trending towards normal. 3. Hypertension. PLAN: We will continue supplemental oxygen and other therapies. I am going to add antihypertensives to his regimen since he has had mild persistent hypertension throughout his stay. Job ID: [id number]
[2020-08-18] MEDS ORDERED: Insulin Glargine 13 UNITS in Pre-Filled Syringe 1 EACH SC SCH (09:00)
[2020-08-18] MEDS: Cefepime 1 GM in Sodium Chloride 0.9% 100 ML IVPB SCH ×2 (11:21→20:56)
[2020-08-18] MEDS: Labetalol 100 MG TAB PO SCH ×2 (11:23→20:56)
[2020-08-18] MEDS: HumaLOG 300 UNITS/3 ML VIAL SC PRN ×2 (11:39→21:16)
[2020-08-18] MEDS: Zolpidem Tartrate 5 MG TAB PO PRN (20:57)
[2020-08-19] MEDS: Albuterol 200 PUFF (6.7GM INHALER) INH SCH ×4 (01:39→17:42)
[2020-08-19 04:01] LABS: ALT (SGPT) 72 U/L (8-55); AST (SGOT) 37 U/L (5-34); Alkaline Phosphatase 89 U/L (40-110); Anion Gap 18 mmol/L (10-20); BUN (Urea Nitrogen) 28 mg/dL (8.4-25.7); Bilirubin, Total 0.8 mg/dL (0.2-1.2); Calc. Creatinine Clearance 96 mL/min (70-130); Calcium 8.4 mg/dL (7.8-10.44); Carbon Dioxide 14 mmol/L (22-29); Chloride 107 mmol/L (98-107); Estimated GFR-MDRD 69; Globulin 3.9 g/dL (2.4-3.5); Glucose 247 mg/dL (70-105); Potassium 4.2 mmol/L (3.5-5.1); Protein, Total 6.9 g/dL (6.0-8.3); Sodium 135 mmol/L (136-145)
[2020-08-19] MEDS: Mometasone 200 MCG/Formoterol 5 MCG 120 PUFF INHALER INH SCH ×2 (05:12→17:42)
[2020-08-19] MEDS: HumaLOG 300 UNITS/3 ML VIAL SC PRN ×3 (05:13→20:49)
--- NOTE | 2020-08-19 05:59 | PDOC.FM ---
- Subjective Subjective: Patient doing well this morning. Pre-occupied with wanting a new bed due to his being uncomfortable. He told me he does not really know why he is still in the hospital; discussed weaning oxygen as tolerated. Patient agreeable. - Objective Vital Signs & Weight: Vital Signs (12 hours) Temp Pulse Resp Pulse Ox 08/19/20 05:12 109 H 30 H 94 L 08/19/20 04:00 98.5 F 08/19/20 01:40 99.0 F 08/18/20 20:00 98.7 F 94 L Weight Weight 90.174 kg Most Recent Monitor Data Heart Rate from ECG 101 NIBP 151/118 NIBP BP-Mean 129 Respiration from ECG 27 SpO2 95 I&O: 08/17/20 08/18/20 08/19/20 07:59 06:59 06:59 Intake Total 1120 Output Total 1650 Balance -530 Result Diagrams: 08/19/20 09:05 08/19/20 03:07 Phys Exam - Physical Examination Constitutional: NAD HEENT: moist MMs, sclera anicteric Neck: supple, full ROM diffuse ronchi tachycardic, regular rhythm Gastrointestinal: soft, positive bowel sounds Musculoskeletal: no edema, pulses present Neurological: non-focal, moves all 4 limbs Psychiatric: normal affect Skin: no rash, normal turgor Dx/Plan (1) KEYA (acute kidney injury) Code(s): N17.9 - ACUTE KIDNEY FAILURE, UNSPECIFIED Status: Acute (2) Acute respiratory failure with hypoxia Code(s): J96.01 - ACUTE RESPIRATORY FAILURE WITH HYPOXIA Status: Acute (3) Pneumonia due to COVID-19 virus Code(s): U07.1 - COVID-19; J12.89 - OTHER VIRAL PNEUMONIA Status: Acute (4) Transaminitis Code(s): R74.01 - ELEVATION OF LEVELS OF LIVER TRANSAMINASE LEVELS Status: Acute - Plan Plan: 54yo male admitted for acute hypoxic respiratory failure 2/2 COVID PNA #Acute hypoxic respiratory failure 2/2 COVID Pneumonia, improved - Symptom onset: 08/08 per , COVID + test on admission 08/13. positive ~2wks prior to admission - Continue methylprednisolone 40mg BID - Wean from HFNC as tolerated - Dulera and albuterol schd - Pulm consulted, added Doxy and Cefepime (08/14), apprec recs #Polysubstance Abuse - Admits to non-prescribed xanax use, multiple mg per day for past few years, as well as non-prescribed percocet use - Rx for Ambien, Soma, and tramadol from PCP - Decrease serax to 10mg TID today - CM to provide drug rehab info #Indeterminate troponin, resolved - 0.046 -> 0.043 -> 0.022 - EKG t wave inversion lead 3, otherwise no acute ST changes #Hyperglycemia - likely 2/2 acute stress and steroids, monitor - Continue to increase daily levemir per ssi requirements - A1C 5.8 #Metabolic acidosis - Anion gap of 14 - Bicarb 18>14 - Suspect compensation from respiratory acidosis, will monitor, consider ABG if clinically indicated #Hypertension - Continue HCTZ - BID labetalol added 08/18 #Depression - No formal diagnosis, but transient episodes of SI - Will consult MHMR when medically cleared to eval prior to discharge. Need to provide with resources moving forward. #Transaminitis, improved - Likely 2/2 COVID 19 PNA #KEYA, resolved IVF: SL DVT ppx: Lovenox 40mg BID Code Status: Full PCP: Frank Addendum - Attending - Attending Attestation Date/Time: 08/19/20 6991 I personally evaluated the patient and discussed the management with Dr. Rowe I agree with the History, Examination, Assessment and Plan documented above with any addition or exceptions noted below - Patient reporting increased SOB this morning. Also c/o anxiety. Had been comfortable overnight. Afebrile VSS A/P: 1) Acute hypoxic resp failure secondary to COVID pneumonia - still with high O2 requirement; wean as tolerated. Continue decadron. 2) Transaminitis- improving; continue to monitor. 3) Polysubstance abuse - Continue serax 20 mg TID for now and wean in 2-3 days. 4) HTN- continue to monitor and adjust medications.
[2020-08-19] MEDS: Famotidine/PF 20 mg/2ml Vial SLOW IVP SCH ×2 (08:37→20:21)
[2020-08-19] MEDS: Hydrochlorothiazide 25 MG TAB PO SCH (08:37)
[2020-08-19] MEDS: Labetalol 100 MG TAB PO SCH ×2 (08:37→20:21)
[2020-08-19] MEDS: methylPREDNISolone Sod Succ 40 MG VIAL IVP SCH ×2 (08:37→20:22)
[2020-08-19] MEDS: Enoxaparin Sodium 40 MG/0.4 ML SYRINGE SC SCH ×2 (08:37→20:21)
[2020-08-19] MEDS: Cefepime 1 GM in Sodium Chloride 0.9% 100 ML IVPB SCH ×2 (08:38→20:22)
[2020-08-19] MEDS ORDERED: Oxazepam 10 MG CAP PO SCH (09:00)
[2020-08-19] MEDS ORDERED: Insulin Glargine 17 UNITS in Pre-Filled Syringe 1 EACH SC SCH (09:00)
[2020-08-19 09:21] LABS: #Basophils 0.1 thou/uL (0.0-0.2); #Eosinphils 0.1 thou/uL (0.0-0.7); #Lymphocytes 1.2 thou/uL (1.20-3.40); #Monocytes 0.4 thou/uL (0.11-0.59); #Neutrophils 14.3 thou/uL (1.40-6.50); %Basophils 0.4 % (0.0-1.0); %Eosinophils 0.6 % (0.0-10.0); %Lymphocytes 7.2 % (21.0-51.0); %Monocytes 2.5 % (0.0-10.0); %Neutrophils 89.3 % (42.0-75.0); Hemoglobin 16.3 g/dL (14.0-18.0); Mean Corpuscular HGB CONC 34.7 g/dL (32.0-36.0); Mean Corpuscular Hemoglobin 32.2 pg (27.0-31.0); Mean Corpuscular Volume 92.8 fL (78.0-98.0); Mean Platelet Volume 8.5 fL (7.4-10.4); Platelet Count 703 thou/uL (130-400); RBC Distribution Width 12.4 % (11.5-14.5); Red Blood Cell (RBC) Count 5.05 mill/uL (4.70-6.10); White Blood Cell (WBC) Count 16.1 thou/uL (4.8-10.8)
--- NOTE | 2020-08-19 11:05 | PRG ---
DATE OF SERVICE: 08/19/2020 SUBJECTIVE: A 54-year-old gentleman, remains in the MICU. OBJECTIVE: VITAL SIGNS: His maximum temperature is 98, pulse 109, still on high flow 70%, 50 rate, 97%, respirations 30, pulse 70. CHEST: No wheezing. No crackles. CARDIAC: Normal S1 and S2. No gallops. ABDOMEN: No masses. LABORATORY DATA: Albumin is 3, total bilirubin is normal. White count is 15,000. Electrolytes are normal. Garcia positive pneumonia. Abnormal LFT. History of alcohol abuse. He is on high-dose steroids, empiric antibiotics, still requiring a fair amount of oxygen. Continue to monitor him on the MICU until we can decrease his O2 requirement. Baseline x-ray being ordered for tomorrow. Job ID: [id number]
[2020-08-19] MEDS: Zolpidem Tartrate 5 MG TAB PO PRN (17:42)
[2020-08-19] MEDS: Oxazepam 10 MG CAP PO SCH ×2 (17:42→20:21)
[2020-08-20] MEDS: Albuterol 200 PUFF (6.7GM INHALER) INH SCH ×4 (01:24→17:33)
[2020-08-20 03:50] LABS: #Monocytes 0.4 thou/uL (0.11-0.59); #Neutrophils 13.5 thou/uL (1.40-6.50); %Eosinophils 0.2 % (0.0-10.0); %Lymphocytes 6.8 % (21.0-51.0); %Monocytes 2.9 % (0.0-10.0); %Neutrophils 90.1 % (42.0-75.0); Hemoglobin 15.1 g/dL (14.0-18.0); Mean Corpuscular HGB CONC 34.2 g/dL (32.0-36.0); Mean Corpuscular Hemoglobin 32.4 pg (27.0-31.0); Mean Corpuscular Volume 94.7 fL (78.0-98.0); Platelet Count 649 thou/uL (130-400); RBC Distribution Width 12.5 % (11.5-14.5); Red Blood Cell (RBC) Count 4.68 mill/uL (4.70-6.10)
[2020-08-20 04:05] LABS: ALT (SGPT) 64 U/L (8-55); AST (SGOT) 33 U/L (5-34); Albumin 3.1 g/dL (3.5-5.0); Alkaline Phosphatase 89 U/L (40-110); Anion Gap 17 mmol/L (10-20); BUN (Urea Nitrogen) 31 mg/dL (8.4-25.7); Bilirubin, Total 0.8 mg/dL (0.2-1.2); Calc. Creatinine Clearance 102 mL/min (70-130); Calcium 8.5 mg/dL (7.8-10.44); Carbon Dioxide 16 mmol/L (22-29); Chloride 107 mmol/L (98-107); Estimated GFR-MDRD 75; Globulin 3.8 g/dL (2.4-3.5); Glucose 211 mg/dL (70-105); Potassium 4.4 mmol/L (3.5-5.1); Protein, Total 6.9 g/dL (6.0-8.3); Sodium 136 mmol/L (136-145)
--- NOTE | 2020-08-20 06:29 | PDOC.FM ---
- Subjective Subjective: Patient doing well this morning. Reports he was anxious last night and the serax helped him calm down, states he had a good night. Requested an occasional "half a xanax" for his anxiety. Discussed his addiction. Per CM resources had been provided to his nurses, patient denies receiving this today. - Objective Vital Signs & Weight: Vital Signs (12 hours) Temp Pulse Ox 08/20/20 01:25 98.5 F 08/19/20 20:25 98.8 F 08/19/20 20:00 97 Weight Weight 90.174 kg Most Recent Monitor Data Heart Rate from ECG 100 NIBP 143/102 NIBP BP-Mean 115 Respiration from ECG 29 SpO2 93 I&O: 08/18/20 08/19/20 08/20/20 06:59 06:59 06:59 Intake Total 1120 Output Total 1650 650 Balance -530 -650 Result Diagrams: 08/20/20 03:12 08/20/20 03:12 Phys Exam - Physical Examination Constitutional: NAD HEENT: moist MMs, sclera anicteric Neck: supple, full ROM Respiratory: no wheezing, clear to auscultation bilateral Cardiovascular: RRR, no significant murmur Gastrointestinal: soft, no distention Musculoskeletal: no edema, pulses present Neurological: non-focal, moves all 4 limbs Psychiatric: normal affect Skin: no rash Dx/Plan (1) KEYA (acute kidney injury) Code(s): N17.9 - ACUTE KIDNEY FAILURE, UNSPECIFIED Status: Acute (2) Acute respiratory failure with hypoxia Code(s): J96.01 - ACUTE RESPIRATORY FAILURE WITH HYPOXIA Status: Acute (3) Pneumonia due to COVID-19 virus Code(s): U07.1 - COVID-19; J12.89 - OTHER VIRAL PNEUMONIA Status: Acute (4) Transaminitis Code(s): R74.01 - ELEVATION OF LEVELS OF LIVER TRANSAMINASE LEVELS Status: Acute - Plan Plan: 54yo male admitted for acute hypoxic respiratory failure 2/2 COVID PNA #Acute hypoxic respiratory failure 2/2 COVID Pneumonia, improved - Symptom onset: 08/08 per , COVID + test on admission 08/13. positive ~2wks prior to admission - Continue methylprednisolone 40mg BID - Wean from HFNC as tolerated - Dulera and albuterol schd - Pulm consulted, added Doxy and Cefepime (08/14), apprec recs #Polysubstance Abuse - Admits to non-prescribed xanax use, multiple mg per day for past few years, as well as non-prescribed percocet use - Rx for Ambien, Soma, and tramadol from PCP - Patient had increased anxiety and WOB 08/19 after decreasing serax, increased back to 20mg TID - provided information for [facility] resources for addiction to nursing to give to patient; will f/u to see if nursing can provide this to the patient today #Indeterminate troponin, resolved - 0.046 -> 0.043 -> 0.022 - EKG t wave inversion lead 3, otherwise no acute ST changes #Hyperglycemia - likely 2/2 acute stress and steroids, monitor - Continue to increase daily levemir per ssi requirements - A1C 5.8 #Metabolic acidosis - Anion gap of 13 - Bicarb 18>14>16 - Suspect compensation from respiratory acidosis, will monitor, consider ABG if clinically indicated #Hypertension - Continue HCTZ - BID labetalol added 08/18 #Depression - No formal diagnosis, but transient episodes of SI - Will consult MHMR when medically cleared to eval prior to discharge. Need to provide with resources moving forward. #Transaminitis, improved - Likely 2/2 COVID 19 PNA #KEYA, resolved IVF: SL DVT ppx: Lovenox 40mg BID Code Status: Full PCP: Frank Addendum - Attending - Attending Attestation Date/Time: 08/20/20 9070 I personally evaluated the patient and discussed the management with Dr. Rowe I agree with the History, Examination, Assessment and Plan documented above with any addition or exceptions noted below - Patient c/o anxiety. Breathing is better today. Afebrile VSS. A/P: 1) Acute hypoxic resp failure due to COVID pneumopnia - wean HFNC as tolerated. Continue steroids, abx. 2) Polysubstance abuse- continue serax. 3) Anxiety - will start SSRI/SNRI. 4) Hyperglycemia- continue insulin
[2020-08-20] MEDS: Mometasone 200 MCG/Formoterol 5 MCG 120 PUFF INHALER INH SCH ×2 (06:35→17:32)
[2020-08-20] MEDS: HumaLOG 300 UNITS/3 ML VIAL SC PRN ×4 (06:35→21:04)
[2020-08-20] MEDS ORDERED: Insulin Glargine 19 UNITS in Pre-Filled Syringe 1 EACH SC SCH (09:00)
[2020-08-20] MEDS: methylPREDNISolone Sod Succ 40 MG VIAL IVP SCH ×2 (09:41→20:42)
[2020-08-20] MEDS: Hydrochlorothiazide 25 MG TAB PO SCH (09:41)
[2020-08-20] MEDS: Labetalol 100 MG TAB PO SCH ×2 (09:41→20:42)
[2020-08-20] MEDS: Enoxaparin Sodium 40 MG/0.4 ML SYRINGE SC SCH ×2 (09:43→20:42)
[2020-08-20] MEDS: Famotidine/PF 20 mg/2ml Vial SLOW IVP SCH ×2 (09:43→20:43)
[2020-08-20] MEDS: Oxazepam 10 MG CAP PO SCH ×3 (09:43→23:25)
[2020-08-20] MEDS: Cefepime 1 GM in Sodium Chloride 0.9% 100 ML IVPB SCH ×2 (09:44→20:43)
--- NOTE | 2020-08-20 10:18 | RAD ---
PORTABLE CHEST: Date: 08/20/2020 HISTORY: COVID pneumonia. COMPARISON: 08/16/2020 exam. FINDINGS: Heart size appears borderline. There is definite increase in the bilateral infiltrative lung changes. IMPRESSION: Worsening bilateral infiltrates. POS: DAIN
--- NOTE | 2020-08-20 10:20 | PRG ---
DATE OF SERVICE: 08/20/2020 SUBJECTIVE: Amanuel Roque is a 54-year-old gentleman, remains on high-flow, MICU. OBJECTIVE: VITAL SIGNS: Temperature of 98, pulse 98, blood pressure 140/95, FiO2 of 60, flow rate 50, sats . I's and O's have been good. CHEST: Bilateral rhonchi and crackles. CARDIAC: Normal S1, S2. No gallops. ABDOMEN: No masses. LABORATORY DATA: Glucose 199. C-reactive protein is 3.74. X-ray still shows significant bilateral pulmonary infiltrates. ASSESSMENT AND PLAN: Garcia positive pneumonia, respiratory failure, diabetes. He is on antibiotics, high-dose steroids, received convalescent plasma, etc. Job ID: [id number]
[2020-08-20] MEDS: Loratadine 10 MG TAB PO PRN (11:47)
[2020-08-20] MEDS: Zolpidem Tartrate 5 MG TAB PO PRN (20:43)
[2020-08-21] MEDS: Albuterol 200 PUFF (6.7GM INHALER) INH SCH ×4 (00:36→19:26)
[2020-08-21 04:08] LABS: ALT (SGPT) 66 U/L (8-55); AST (SGOT) 35 U/L (5-34); Albumin 3.1 g/dL (3.5-5.0); Alkaline Phosphatase 88 U/L (40-110); Anion Gap 17 mmol/L (10-20); BUN (Urea Nitrogen) 29 mg/dL (8.4-25.7); Bilirubin, Total 0.8 mg/dL (0.2-1.2); Calc. Creatinine Clearance 108 mL/min (70-130); Calcium 8.5 mg/dL (7.8-10.44); Carbon Dioxide 17 mmol/L (22-29); Chloride 105 mmol/L (98-107); Estimated GFR-MDRD 80; Globulin 3.9 g/dL (2.4-3.5); Glucose 192 mg/dL (70-105); Potassium 4.2 mmol/L (3.5-5.1); Sodium 135 mmol/L (136-145)
[2020-08-21] MEDS: HumaLOG 300 UNITS/3 ML VIAL SC PRN (05:27)
[2020-08-21] MEDS: Mometasone 200 MCG/Formoterol 5 MCG 120 PUFF INHALER INH SCH ×2 (06:34→19:25)
--- NOTE | 2020-08-21 06:42 | PDOC.FM ---
- Subjective Subjective: Patient doing well today, reports his anxiety was much improved yesterday. Denies dyspnea, denies cough - Objective Vital Signs & Weight: Vital Signs (12 hours) Temp Pulse Ox 08/21/20 05:00 98.1 F 08/21/20 01:40 97.8 F 08/20/20 20:35 98.0 F 08/20/20 20:00 99 Weight Weight 90.174 kg Most Recent Monitor Data Heart Rate from ECG 97 NIBP 138/98 NIBP BP-Mean 111 Respiration from ECG 31 SpO2 96 I&O: 08/19/20 08/20/20 08/21/20 06:59 06:59 06:59 Intake Total 2649 269 8691 Output Total 1650 1250 1675 Balance -530 -480 -125 Result Diagrams: 08/20/20 03:12 08/21/20 03:16 Phys Exam - Physical Examination Constitutional: NAD HEENT: moist MMs, sclera anicteric Neck: supple, full ROM Respiratory: no wheezing course breath sounds throughout Cardiovascular: RRR mild ttp mid-epigastric area Musculoskeletal: no edema, pulses present Neurological: non-focal, moves all 4 limbs Psychiatric: normal affect Skin: no rash, normal turgor Dx/Plan (1) KEYA (acute kidney injury) Code(s): N17.9 - ACUTE KIDNEY FAILURE, UNSPECIFIED Status: Acute (2) Acute respiratory failure with hypoxia Code(s): J96.01 - ACUTE RESPIRATORY FAILURE WITH HYPOXIA Status: Acute (3) Pneumonia due to COVID-19 virus Code(s): U07.1 - COVID-19; J12.89 - OTHER VIRAL PNEUMONIA Status: Acute (4) Transaminitis Code(s): R74.01 - ELEVATION OF LEVELS OF LIVER TRANSAMINASE LEVELS Status: Acute - Plan Plan: 54yo male admitted for acute hypoxic respiratory failure 2/2 COVID PNA #Acute hypoxic respiratory failure 2/2 COVID Pneumonia, improved - Symptom onset: 08/08 per , COVID + test on admission 08/13. positive ~2wks prior to admission - Continue methylprednisolone 40mg BID - Wean from HFNC as tolerated; if continues to do well can consider moving to medical tmrw - Dulera and albuterol schd - Pulm consulted, added Doxy and Cefepime (08/14), apprec recs #Polysubstance Abuse - Admits to non-prescribed xanax use, multiple mg per day for past few years, as well as non-prescribed percocet use - Rx for Ambien, Soma, and tramadol from PCP - Patient had increased anxiety and WOB 08/19 after decreasing serax, increased back to 20mg TID - provided information for [facility] resources for addiction to nursing to give to patient #Indeterminate troponin, resolved - 0.046 -> 0.043 -> 0.022 - EKG t wave inversion lead 3, otherwise no acute ST changes #Hyperglycemia - likely 2/2 acute stress and steroids, monitor - Continue to increase daily levemir per ssi requirements - A1C 5.8 #Metabolic acidosis - Anion gap of 13 - Bicarb 18>14>16 - Suspect compensation from respiratory acidosis, will monitor, consider ABG if clinically indicated #Hypertension - Continue HCTZ - BID labetalol added 08/18 #Depression/Anxiety - No formal diagnosis, but transient episodes of SI - Will consult MHMR when medically cleared to eval prior to discharge. Need to provide with resources moving forward. - Started on lexapro, will continue to monitor #Transaminitis, improved - Likely 2/2 COVID 19 PNA #KEYA, resolved IVF: SL DVT ppx: Lovenox 40mg BID Code Status: Full PCP: Frank Addendum - Attending - Attending Attestation Date/Time: 08/21/20 1539 I personally evaluated the patient and discussed the management with Dr. Rowe I agree with the History, Examination, Assessment and Plan documented above with any addition or exceptions noted below - Patient reports his anxiety is improve d. Still SOB with exertion. Afebrile VSS. A/P: 1) Acute hypoxic resp failure secondary to COVID pneumonia - continue HFNC and wean as tolerated. Continue steroids, dulera and doxy. 2) Hyperglycemia-adjust insulin. 3) Anxiety- continue current meds
[2020-08-21] MEDS: Famotidine/PF 20 mg/2ml Vial SLOW IVP SCH ×2 (08:45→21:40)
[2020-08-21] MEDS: Escitalopram Oxalate 10 mg Tablet PO SCH (08:45)
[2020-08-21] MEDS: methylPREDNISolone Sod Succ 40 MG VIAL IVP SCH ×2 (08:45→21:40)
[2020-08-21] MEDS: Hydrochlorothiazide 25 MG TAB PO SCH (08:45)
[2020-08-21] MEDS: Labetalol 100 MG TAB PO SCH ×2 (08:45→21:37)
[2020-08-21] MEDS: Oxazepam 10 MG CAP PO SCH ×3 (08:45→21:40)
[2020-08-21] MEDS: Cefepime 1 GM in Sodium Chloride 0.9% 100 ML IVPB SCH ×2 (08:45→19:28)
[2020-08-21] MEDS: Enoxaparin Sodium 40 MG/0.4 ML SYRINGE SC SCH ×2 (08:45→21:35)
[2020-08-21] MEDS ORDERED: Insulin Glargine 24 UNITS in Pre-Filled Syringe 1 EACH SC SCH (09:00)
--- NOTE | 2020-08-21 09:56 | PRG ---
DATE OF SERVICE: 08/21/2020 SUBJECTIVE: Amanuel Roque this morning sitting on the side of the bed. OBJECTIVE: VITAL SIGNS: Temperature 98, pulse 101, blood pressure 138/98, respiratory rate 18. He is on high-flow 50%. CHEST: Bilateral rhonchi and crackles. CARDIAC: Sinus tach. ABDOMEN: Soft. LABORATORY DATA: Lytes are normal. ASSESSMENT: Respiratory failure, coronavirus positive pneumonia. PLAN: Continue high-dose steroids, empiric antibiotics, vitamin C. He has already had convalescent plasma. We will follow. Maybe if he is stable tomorrow, consider transfer him to a medical floor. Job ID: [id number]
[2020-08-21] MEDS: Loratadine 10 MG TAB PO PRN (21:40)
[2020-08-21] MEDS: Zolpidem Tartrate 5 MG TAB PO PRN (21:40)
[2020-08-21] MEDS ORDERED: HumaLOG 300 UNITS/3 ML VIAL SC PRN (21:50)
[2020-08-22] MEDS: Albuterol 200 PUFF (6.7GM INHALER) INH SCH ×4 (00:59→23:23)
[2020-08-22 03:55] LABS: #Eosinphils 0.1 thou/uL (0.0-0.7); #Lymphocytes 0.9 thou/uL (1.20-3.40); #Monocytes 0.3 thou/uL (0.11-0.59); #Neutrophils 15.2 thou/uL (1.40-6.50); %Basophils 0.2 % (0.0-1.0); %Eosinophils 0.3 % (0.0-10.0); %Lymphocytes 5.3 % (21.0-51.0); %Monocytes 1.6 % (0.0-10.0); %Neutrophils 92.6 % (42.0-75.0); Hemoglobin 15.8 g/dL (14.0-18.0); Mean Corpuscular HGB CONC 34.7 g/dL (32.0-36.0); Mean Corpuscular Hemoglobin 32.3 pg (27.0-31.0); Platelet Count 659 thou/uL (130-400); RBC Distribution Width 12.2 % (11.5-14.5); Red Blood Cell (RBC) Count 4.89 mill/uL (4.70-6.10); White Blood Cell (WBC) Count 16.5 thou/uL (4.8-10.8)
[2020-08-22 04:18] LABS: ALT (SGPT) 64 U/L (8-55); AST (SGOT) 30 U/L (5-34); Albumin 3.2 g/dL (3.5-5.0); Alkaline Phosphatase 88 U/L (40-110); Anion Gap 17 mmol/L (10-20); BUN (Urea Nitrogen) 35 mg/dL (8.4-25.7); Bilirubin, Total 0.9 mg/dL (0.2-1.2); Calc. Creatinine Clearance 103 mL/min (70-130); Calcium 8.6 mg/dL (7.8-10.44); Carbon Dioxide 18 mmol/L (22-29); Chloride 104 mmol/L (98-107); Estimated GFR-MDRD 76; Globulin 3.7 g/dL (2.4-3.5); Glucose 195 mg/dL (70-105); Potassium 4.5 mmol/L (3.5-5.1); Protein, Total 6.9 g/dL (6.0-8.3); Sodium 134 mmol/L (136-145)
--- NOTE | 2020-08-22 05:25 | PDOC.FM ---
- Subjective Subjective: Patient having greater difficulty with breathing this morning after moving to the chair. Reports his anxiety is worse this morning as well. - Objective Vital Signs & Weight: Vital Signs (12 hours) Temp Pulse BP Pulse Ox 08/22/20 04:00 97.0 F L 08/22/20 00:00 97.0 F L 08/21/20 21:37 101 H 136/92 H 08/21/20 20:00 97.4 F L 92 L Weight Weight 90.174 kg Most Recent Monitor Data Heart Rate from ECG 92 NIBP 138/92 NIBP BP-Mean 107 Respiration from ECG 31 SpO2 98 I&O: 08/20/20 08/21/20 08/22/20 06:59 06:59 06:59 Intake Total 770 1550 2220 Output Total 1250 1675 1700 Balance -480 -125 520 Result Diagrams: 08/22/20 03:22 08/23/20 03:07 Phys Exam - Physical Examination mild respiratory distress HEENT: moist MMs Neck: supple, full ROM coarse breath sounds throughout Cardiovascular: RRR, no significant murmur Gastrointestinal: soft, no distention Musculoskeletal: no edema Neurological: moves all 4 limbs Psychiatric: normal affect Skin: no rash, normal turgor Dx/Plan (1) KEYA (acute kidney injury) Code(s): N17.9 - ACUTE KIDNEY FAILURE, UNSPECIFIED Status: Acute (2) Acute respiratory failure with hypoxia Code(s): J96.01 - ACUTE RESPIRATORY FAILURE WITH HYPOXIA Status: Acute (3) Pneumonia due to COVID-19 virus Code(s): U07.1 - COVID-19; J12.89 - OTHER VIRAL PNEUMONIA Status: Acute (4) Transaminitis Code(s): R74.01 - ELEVATION OF LEVELS OF LIVER TRANSAMINASE LEVELS Status: Acute - Plan Plan: 54yo male admitted for acute hypoxic respiratory failure 2/2 COVID PNA #Acute hypoxic respiratory failure 2/2 COVID Pneumonia, improved - Symptom onset: 08/08 per , COVID + test on admission 08/13. positive ~2wks prior to admission - Continue methylprednisolone 40mg BID - Wean from HFNC as tolerated; patient continues to desat to mid-80s with movement - Dulera and albuterol schd - Pulm consulted, added Doxy and Cefepime (08/14), apprec recs #Polysubstance Abuse - Admits to non-prescribed xanax use, multiple mg per day for past few years, as well as non-prescribed percocet use - Rx for Ambien, Soma, and tramadol from PCP - Patient had increased anxiety and WOB 08/19 after decreasing serax, increased back to 20mg TID - provided information for [facility] resources for addiction to nursing to give to patient #Indeterminate troponin, resolved - 0.046 -> 0.043 -> 0.022 - EKG t wave inversion lead 3, otherwise no acute ST changes #Hyperglycemia - likely 2/2 acute stress and steroids, monitor - Continue to increase daily levemir per ssi requirements - A1C 5.8 #Metabolic acidosis - Anion gap of 12 - Bicarb 18>14>16>18 - Suspect compensation from respiratory acidosis, will monitor, consider ABG if clinically indicated #Hypertension - Continue HCTZ - BID labetalol added 08/18 #Depression/Anxiety - No formal diagnosis, but transient episodes of SI - Will consult MHMR when medically cleared to eval prior to discharge. Need to provide with resources moving forward. - Started on lexapro, will continue to monitor #Transaminitis, improved - Likely 2/2 COVID 19 PNA #KEYA, resolved IVF: SL DVT ppx: Lovenox 40mg BID Code Status: Full PCP: Frank Addendum - Attending - Attending Attestation Date/Time: 08/22/20 5494 I personally evaluated the patient and discussed the management with Dr. Rowe I agree with the History, Examination, Assessment and Plan documented above with any addition or exceptions noted below- Patient just moved to recliner. Having increased SOB. Still desaturates with exertion. Afebrile VSS. A/P: 1) Acute resp failure secondary to COVID pneumonia-Still needing HFNC. Continue to wean as tolerated. 2) Anxiety- continue current meds.
[2020-08-22] MEDS: Mometasone 200 MCG/Formoterol 5 MCG 120 PUFF INHALER INH SCH ×2 (05:53→19:23)
[2020-08-22] MEDS: hydrOXYzine Pamoate 25 mg Capsule PO PRN (06:03)
[2020-08-22] MEDS: HumaLOG 300 UNITS/3 ML VIAL SC PRN (06:04)
[2020-08-22] MEDS: Hydrochlorothiazide 25 MG TAB PO SCH (09:20)
[2020-08-22] MEDS: Insulin Glargine 25 UNITS in Pre-Filled Syringe 1 EACH SC SCH (09:20)
[2020-08-22] MEDS: Enoxaparin Sodium 40 MG/0.4 ML SYRINGE SC SCH ×2 (09:20→20:00)
[2020-08-22] MEDS: Oxazepam 10 MG CAP PO SCH ×3 (09:20→20:00)
[2020-08-22] MEDS: Famotidine/PF 20 mg/2ml Vial SLOW IVP SCH ×2 (09:20→20:00)
[2020-08-22] MEDS: Labetalol 100 MG TAB PO SCH ×2 (09:20→20:00)
[2020-08-22] MEDS: Escitalopram Oxalate 10 mg Tablet PO SCH (09:20)
[2020-08-22] MEDS: methylPREDNISolone Sod Succ 40 MG VIAL IVP SCH ×2 (09:21→20:00)
--- NOTE | 2020-08-22 09:36 | PRG ---
DATE OF SERVICE: 08/22/2020 SUBJECTIVE: Amanuel Roque is a 54-year-old a gentleman who remains on high-flow, he is saturating 96%. We made him move, he desats. OBJECTIVE: VITAL SIGNS: Temperature 99, pulse 92, blood pressure 140/90, and respiratory rate 18. I's and O's negative. CHEST: No wheezing. No crackles. CARDIAC: Normal S1 and S2. No gallops. ABDOMEN: No masses. LABORATORY DATA: White count 16,000. His C-reactive protein is down to 1.64. D-dimer is decreased. ASSESSMENT AND PLAN: Respiratory failure, merino positive pneumonia, acute respiratory distress syndrome, still hypoxic. Continue Maxipime, doxycycline, steroids, and IV inhaler. Once his oxygen requirement improves, he can be probably transferred out. Job ID: [id number]
[2020-08-22] MEDS: Cefepime 1 GM in Sodium Chloride 0.9% 100 ML IVPB SCH (14:41)
[2020-08-22] MEDS: Loratadine 10 MG TAB PO PRN (16:45)
[2020-08-22] MEDS: Zolpidem Tartrate 5 MG TAB PO PRN (21:11)
[2020-08-23] MEDS: Albuterol 200 PUFF (6.7GM INHALER) INH SCH ×4 (01:45→17:12)
[2020-08-23] MEDS: Cefepime 1 GM in Sodium Chloride 0.9% 100 ML IVPB SCH ×2 (03:39→13:56)
[2020-08-23 04:05] LABS: ALT (SGPT) 67 U/L (8-55); AST (SGOT) 27 U/L (5-34); Albumin 3.2 g/dL (3.5-5.0); Alkaline Phosphatase 87 U/L (40-110); Anion Gap 16 mmol/L (10-20); BUN (Urea Nitrogen) 38 mg/dL (8.4-25.7); Bilirubin, Total 0.8 mg/dL (0.2-1.2); Calc. Creatinine Clearance 104 mL/min (70-130); Calcium 8.5 mg/dL (7.8-10.44); Carbon Dioxide 18 mmol/L (22-29); Chloride 104 mmol/L (98-107); Estimated GFR-MDRD 76; Globulin 3.6 g/dL (2.4-3.5); Glucose 193 mg/dL (70-105); Potassium 4.4 mmol/L (3.5-5.1); Protein, Total 6.8 g/dL (6.0-8.3); Sodium 134 mmol/L (136-145)
--- NOTE | 2020-08-23 05:26 | PDOC.FM ---
- Subjective Subjective: Patient doing better this morning; anxiety is improved. States when the claritin wears off he notices that his eyes itch. - Objective Vital Signs & Weight: Vital Signs (12 hours) Temp Pulse BP Pulse Ox 08/23/20 04:00 97.4 F L 08/23/20 00:10 99 08/22/20 20:00 97.2 F L 101 H 136/92 H 96 Weight Admit Weight 90.174 kg Weight 90.174 kg Most Recent Monitor Data Heart Rate from ECG 93 NIBP 147/90 NIBP BP-Mean 109 Respiration from ECG 34 SpO2 96 I&O: 08/21/20 08/22/20 08/23/20 06:59 06:59 06:59 Intake Total 1550 3120 1200 Output Total 1675 2050 850 Balance -125 1070 350 Result Diagrams: 08/22/20 03:22 08/23/20 03:07 Phys Exam - Physical Examination Constitutional: NAD HEENT: moist MMs, sclera anicteric Neck: supple, full ROM coarse breath sounds throughout Cardiovascular: RRR, no significant murmur Gastrointestinal: soft mildly ttp Musculoskeletal: no edema, pulses present Neurological: non-focal, moves all 4 limbs Psychiatric: normal affect Skin: no rash Dx/Plan (1) KEYA (acute kidney injury) Code(s): N17.9 - ACUTE KIDNEY FAILURE, UNSPECIFIED Status: Acute (2) Acute respiratory failure with hypoxia Code(s): J96.01 - ACUTE RESPIRATORY FAILURE WITH HYPOXIA Status: Acute (3) Pneumonia due to COVID-19 virus Code(s): U07.1 - COVID-19; J12.89 - OTHER VIRAL PNEUMONIA Status: Acute (4) Transaminitis Code(s): R74.01 - ELEVATION OF LEVELS OF LIVER TRANSAMINASE LEVELS Status: Acute - Plan Plan: 54yo male admitted for acute hypoxic respiratory failure 2/2 COVID PNA #Acute hypoxic respiratory failure 2/2 COVID Pneumonia, improved - Symptom onset: 08/08 per , COVID + test on admission 08/13. positive ~2wks prior to admission - Continue methylprednisolone 40mg BID - Wean from HFNC as tolerated; patient did well throughout the day yesterday on 50L @ 60% FiO2 - Dulera and albuterol schd - Pulm consulted, added Doxy and Cefepime (08/14), apprec recs - Possibly move up to medical floor today #Polysubstance Abuse - Admits to non-prescribed xanax use, multiple mg per day for past few years, as well as non-prescribed percocet use - Rx for Ambien, Soma, and tramadol from PCP - Patient had increased anxiety and WOB 08/19 after decreasing serax, increased back to 20mg TID - provided information for [facility] for addiction to nursing to give to patient - Hydroxyzine prn #Indeterminate troponin, resolved - 0.046 -> 0.043 -> 0.022 - EKG t wave inversion lead 3, otherwise no acute ST changes #Hyperglycemia - likely 2/2 acute stress and steroids, monitor - Continue to increase daily levemir per ssi requirements - A1C 5.8 #Metabolic acidosis - Anion gap of 12 - Bicarb 18>14>16>18 - Suspect compensation from respiratory acidosis, will monitor, consider ABG if clinically indicated #Hypertension - Continue HCTZ - BID labetalol added 08/18 #Depression/Anxiety - No formal diagnosis, but transient episodes of SI - Will consult MHMR when medically cleared to eval prior to discharge. Need to provide with resources moving forward. - Started on lexapro, will continue to monitor #Transaminitis, improved - Likely 2/2 COVID 19 PNA #KEYA, resolved #Seasonal Allergies -5mg claritin po BID IVF: SL DVT ppx: Lovenox 40mg BID Code Status: Full PCP: Frank Addendum - Attending - Attending Attestation Date/Time: 08/23/20 0821 I personally evaluated the patient and discussed the management with Dr. Rowe I agree with the History, Examination, Assessment and Plan documented above with any addition or exceptions noted below - Patient feeling better today. Anxiety b adebayo. Afebrile VSS. A/P: 1) Acute resp failure secondary to COVID pneumonia- wean HFNC as tolerated. Stable to transfer from [facility] to medical. Continue steroids, dulera. 2) Anxiety- stable. Continue current meds.
[2020-08-23] MEDS: Mometasone 200 MCG/Formoterol 5 MCG 120 PUFF INHALER INH SCH ×2 (07:28→17:13)
[2020-08-23] MEDS: Enoxaparin Sodium 40 MG/0.4 ML SYRINGE SC SCH ×2 (10:19→21:12)
[2020-08-23] MEDS: Oxazepam 10 MG CAP PO SCH ×3 (10:20→21:10)
[2020-08-23] MEDS: Labetalol 100 MG TAB PO SCH ×2 (10:20→21:10)
[2020-08-23] MEDS: Escitalopram Oxalate 10 mg Tablet PO SCH (10:20)
[2020-08-23] MEDS: Famotidine/PF 20 mg/2ml Vial SLOW IVP SCH ×2 (10:21→21:11)
[2020-08-23] MEDS: methylPREDNISolone Sod Succ 40 MG VIAL IVP SCH ×2 (10:21→21:10)
[2020-08-23] MEDS: Loratadine 10 MG TAB PO SCH ×2 (10:21→21:11)
[2020-08-23] MEDS: D5W-AA 4.25% with LYTES 1,000 ML IV SCH ×2 (10:23→15:40)
[2020-08-23] MEDS: Insulin Glargine 25 UNITS in Pre-Filled Syringe 1 EACH SC SCH (10:25)
[2020-08-23] MEDS: Hydrochlorothiazide 25 MG TAB PO SCH (10:43)
--- NOTE | 2020-08-23 11:13 | PRG ---
DATE OF SERVICE: SUBJECTIVE: Amanuel Roque is a 54-year-old gentleman, who remains in the MICU. OBJECTIVE: VITAL SIGNS: Blood pressure 148/94, pulse rate of , temperature 97, respiratory rate 18. CHEST: Bilateral crackles. CARDIAC: Normal S1 and S2. No gallops. ABDOMEN: No masses. LABORATORY DATA: Unremarkable. BUN and creatinine are normal at 38 and 1. ASSESSMENT: Respiratory failure, Coronavirus positive pneumonia, and mild azotemia. PLAN: Continue high-flow. Continue steroids, supportive care. Continue to follow on the MICU. Job ID: [id number]
--- NOTE | 2020-08-23 11:29 | RAD ---
PORTABLE CHEST: Date: 08/23/2020 HISTORY: COVID pneumonia. COMPARISON: 08/20/2020. FINDINGS: Bilateral infiltrates are again seen. There are hazy peripheral infiltrates bilaterally with some are as of confluent infiltrate and consolidation in the mid and lower lungs bilaterally. IMPRESSION: Persistent bilateral infiltrates. POS: AH
[2020-08-23] MEDS: Zolpidem Tartrate 5 MG TAB PO PRN (21:11)
[2020-08-23] MEDS: Benzonatate 100 MG CAP PO PRN (21:23)
[2020-08-24] MEDS: Cefepime 1 GM in Sodium Chloride 0.9% 100 ML IVPB SCH ×2 (03:00→14:41)
[2020-08-24] MEDS: hydrOXYzine Pamoate 25 mg Capsule PO PRN (04:39)
[2020-08-24 06:17] LABS: ALT (SGPT) 66 U/L (8-55); AST (SGOT) 36 U/L (5-34); Albumin 3.1 g/dL (3.5-5.0); Alkaline Phosphatase 82 U/L (40-110); Anion Gap 16 mmol/L (10-20); BUN (Urea Nitrogen) 33 mg/dL (8.4-25.7); Bilirubin, Total 0.8 mg/dL (0.2-1.2); Calc. Creatinine Clearance 118 mL/min (70-130); Calcium 8.2 mg/dL (7.8-10.44); Carbon Dioxide 17 mmol/L (22-29); Chloride 105 mmol/L (98-107); Estimated GFR-MDRD 88; Globulin 3.6 g/dL (2.4-3.5); Glucose 183 mg/dL (70-105); Potassium 4.9 mmol/L (3.5-5.1); Protein, Total 6.7 g/dL (6.0-8.3); Sodium 133 mmol/L (136-145)
[2020-08-24] MEDS: D5W-AA 4.25% with LYTES 1,000 ML IV SCH ×2 (06:40→19:49)
--- NOTE | 2020-08-24 09:33 | PDOC.FM ---
- Objective Vital Signs & Weight: Vital Signs (12 hours) Temp Pulse Resp BP Pulse Ox 08/24/20 04:00 98.2 F 87 23 H 134/88 98 08/24/20 00:00 98 F 87 24 H 125/88 97 Weight Admit Weight 90.174 kg Weight 90.174 kg Most Recent Monitor Data Heart Rate from ECG 88 NIBP 132/88 NIBP BP-Mean 102 Respiration from ECG 27 SpO2 85 I&O: 08/23/20 08/24/20 08/25/20 06:59 06:59 06:59 Intake Total 1200 1600 Output Total 950 1075 Balance 250 525 Result Diagrams: 08/22/20 03:22 08/24/20 05:41 Dx/Plan - Plan Plan: 54yo male admitted for acute hypoxic respiratory failure 2/2 COVID PNA #Acute hypoxic respiratory failure 2/2 COVID Pneumonia, improved - Symptom onset: 08/08 per , COVID + test on admission 08/13. positive ~2wks prior to admission - Continue methylprednisolone 40mg BID - Wean from HFNC as tolerated; patient did well throughout the day yesterday on 50L @ 60% FiO2 on 08/24 - Dulera and albuterol schd - Pulm consulted, added Doxy and Cefepime (08/14), apprec recs #Polysubstance Abuse - Admits to non-prescribed xanax use, multiple mg per day for past few years, as well as non-prescribed percocet use - Rx for Ambien, Soma, and tramadol from PCP - Patient had increased anxiety and WOB 08/19 after decreasing serax, increased back to 20mg TID - provided information for [facility] for addiction to nursing to give to patient - Hydroxyzine prn #Indeterminate troponin, resolved - 0.046 -> 0.043 -> 0.022 - EKG t wave inversion lead 3, otherwise no acute ST changes #Hyperglycemia - likely 2/2 acute stress and steroids, monitor - Continue to increase daily levemir per ssi requirements - A1C 5.8 #Metabolic acidosis - Anion gap of 12 - Bicarb 18>14>16>18 - Suspect compensation from respiratory acidosis, will monitor, consider ABG if clinically indicated #Hypertension - Continue HCTZ - BID labetalol added 08/18 #Depression/Anxiety - No formal diagnosis, but transient episodes of SI - Will consult MHMR when medically cleared to eval prior to discharge. Need to provide with resources moving forward. - Started on lexapro, will continue to monitor #Transaminitis, improved - Likely 2/2 COVID 19 PNA #KEYA, resolved #Seasonal Allergies -5mg claritin po BID IVF: SL DVT ppx: Lovenox 40mg BID Code Status: Full PCP: Frank Addendum - Attending - Attending Attestation Date/Time: 08/24/201929 I personally evaluated the patient and discussed the management with Dr. Briseno I agree with the History, Examination, Assessment and Plan documented above with any addition or exceptions noted below - Patient report some increased anxiety. Afebrile VSS. A/P: 1) Acute resp failure secondary to COVID pneumonia- stable. Continue to wean O2 as tolerated. 2) Anxiety- will increase hydroxyzine. Continue serax. Consider increasing lexapro next week.
[2020-08-24] MEDS: methylPREDNISolone Sod Succ 40 MG VIAL IVP SCH ×2 (09:37→19:55)
[2020-08-24] MEDS: Loratadine 10 MG TAB PO SCH ×2 (09:38→19:54)
[2020-08-24] MEDS: Escitalopram Oxalate 10 mg Tablet PO SCH (09:38)
[2020-08-24] MEDS: Famotidine/PF 20 mg/2ml Vial SLOW IVP SCH ×2 (09:45→19:55)
[2020-08-24] MEDS: Labetalol 100 MG TAB PO SCH ×2 (09:45→19:56)
[2020-08-24] MEDS: Mometasone 200 MCG/Formoterol 5 MCG 120 PUFF INHALER INH SCH ×2 (09:46→17:39)
[2020-08-24] MEDS: Albuterol 200 PUFF (6.7GM INHALER) INH SCH ×4 (09:48→17:42)
[2020-08-24] MEDS: Enoxaparin Sodium 40 MG/0.4 ML SYRINGE SC SCH ×2 (09:49→19:55)
[2020-08-24] MEDS: Insulin Glargine 25 UNITS in Pre-Filled Syringe 1 EACH SC SCH (09:51)
[2020-08-24] MEDS: Benzonatate 100 MG CAP PO PRN ×2 (09:52→20:04)
[2020-08-24] MEDS: Acetaminophen 325 MG TAB PO PRN (09:52)
[2020-08-24] MEDS: Oxazepam 10 MG CAP PO SCH ×3 (10:46→21:31)
--- NOTE | 2020-08-24 11:45 | EKG ---
Test Reason : Blood Pressure : / mmHG Vent. Rate : 109 BPM Atrial Rate : 109 BPM P-R Int : 130 ms QRS Dur : 068 ms QT Int : 344 ms P-R-T Axes : 020 -04 -26 degrees QTc Int : 463 ms Sinus tachycardia with Premature atrial complexes with Abberant conduction Minimal voltage criteria for LVH, may be normal variant Abnormal ECG Confirmed by ALAINA PETERSON M.D. ([id number]), primer expeditor and drier LEEANNE LAL ([id number]) on 08/24/2020 11:45:10 AM Referred By: Confirmed By:ALAINA PETERSON M.D.
[2020-08-24] MEDS: hydrOXYzine Pamoate 25 mg Capsule PO SCH ×3 (13:21→19:55)
[2020-08-24] MEDS: HumaLOG 300 UNITS/3 ML VIAL SC PRN (17:40)
[2020-08-24] MEDS: Zolpidem Tartrate 5 MG TAB PO PRN ×2 (19:55→21:31)
[2020-08-25] MEDS: Cefepime 1 GM in Sodium Chloride 0.9% 100 ML IVPB SCH ×2 (02:04→16:31)
[2020-08-25] MEDS: Albuterol 200 PUFF (6.7GM INHALER) INH SCH ×4 (02:06→18:01)
[2020-08-25] MEDS: Mometasone 200 MCG/Formoterol 5 MCG 120 PUFF INHALER INH SCH ×2 (05:51→17:50)
--- NOTE | 2020-08-25 06:52 | PDOC.FM ---
- Subjective Subjective: Patient reports his anxiety & breathing are improved. No concerns today. - Objective MAR Reviewed: Yes Vital Signs & Weight: Vital Signs (12 hours) Temp Pulse Resp BP Pulse Ox 08/25/20 05:51 72 28 H 94 L 08/25/20 04:00 98.6 F 72 28 H 151/91 H 93 L 08/24/20 20:00 98.3 F 101 H 32 H 162/93 H 93 L 08/24/20 19:56 86 Weight Admit Weight 90.174 kg Weight 90.174 kg Most Recent Monitor Data Heart Rate from ECG 88 NIBP 132/88 NIBP BP-Mean 102 Respiration from ECG 27 SpO2 85 I&O: 08/23/20 08/24/20 08/25/20 06:59 06:59 06:59 Intake Total 1200 1600 3275 Output Total 950 1075 2100 Balance 256 433 1183 Result Diagrams: 08/31/20 10:36 08/31/20 10:36 Phys Exam - Physical Examination Constitutional: NAD HEENT: PERRLA, moist MMs Respiratory: no wheezing, clear to auscultation bilateral Cardiovascular: RRR, no significant murmur Gastrointestinal: soft, non-tender, no distention Musculoskeletal: no edema Neurological: non-focal, moves all 4 limbs Psychiatric: normal affect Dx/Plan - Plan Plan: 54yo male admitted for acute hypoxic respiratory failure 2/2 COVID PNA 08/25 update: -Doing well, continue current anxiety regimen with lexapro & atarax & ambien. Consider inc. lexapro this upcoming week. -Wean HFNC as tolerated -Continue abx pending pulm recs -Continue working with PT #Acute hypoxic respiratory failure 2/2 COVID Pneumonia, improved - Symptom onset: 08/08 per , COVID + test on admission 08/13. positive ~2wks prior to admission - Continue methylprednisolone 40mg BID - Wean from HFNC as tolerated; patient did well throughout the day yesterday on 50L @ 60% FiO2 on 08/25-wean as tolerated - Dulera and albuterol schd - Pulm consulted, continue Doxy and Cefepime (08/14), apprec recs #Polysubstance Abuse - Admits to non-prescribed xanax use, multiple mg per day for past few years, as well as non-prescribed percocet use - Rx for Ambien, Soma, and tramadol from PCP - Patient had increased anxiety and WOB 08/19 after decreasing serax, increased back to 20mg TID - provided information for [facility] resources for addiction to nursing to give to patient - Hydroxyzine prn #Indeterminate troponin, resolved - 0.046 -> 0.043 -> 0.022 - EKG t wave inversion lead 3, otherwise no acute ST changes #Hyperglycemia - likely 2/2 acute stress and steroids, monitor - Continue to increase daily levemir per ssi requirements - A1C 5.8 #Metabolic acidosis - Anion gap of 12 - Bicarb 18>14>16>18 - Suspect compensation from respiratory acidosis, will monitor, consider ABG if clinically indicated #Hypertension - Continue HCTZ - BID labetalol added 08/18 #Depression/Anxiety - No formal diagnosis, but transient episodes of SI - Will consult MHMR when medically cleared to eval prior to discharge. Need to provide with resources moving forward. - Started on lexapro, will continue to monitor #Transaminitis, improved - Likely 2/2 COVID 19 PNA #KEYA, resolved #Seasonal Allergies -5mg claritin po BID IVF: SL DVT ppx: Lovenox 40mg BID Code Status: Full PCP: Frank Addendum - Attending - Attending Attestation Date/Time: 09/01/202043 I personally evaluated the patient and discussed the management with Dr. Briseno on 08/25/20 I agree with the History, Examination, Assessment and Plan documented above with any addition or exceptions noted below - Continuing to make slow progress with weaning O2. Will plan to increase lexapro in next few days to improve control of anxiety.
[2020-08-25] MEDS: Oxazepam 10 MG CAP PO SCH ×3 (08:06→21:46)
[2020-08-25] MEDS: methylPREDNISolone Sod Succ 40 MG VIAL IVP SCH ×2 (08:06→21:46)
[2020-08-25] MEDS: hydrOXYzine Pamoate 25 mg Capsule PO SCH ×3 (08:06→17:50)
[2020-08-25] MEDS: Enoxaparin Sodium 40 MG/0.4 ML SYRINGE SC SCH ×2 (08:06→21:48)
[2020-08-25] MEDS: Escitalopram Oxalate 10 mg Tablet PO SCH (08:06)
[2020-08-25] MEDS: Famotidine/PF 20 mg/2ml Vial SLOW IVP SCH ×2 (08:07→21:47)
[2020-08-25] MEDS: Loratadine 10 MG TAB PO SCH ×2 (08:07→21:47)
[2020-08-25] MEDS: Labetalol 100 MG TAB PO SCH ×2 (08:13→21:47)
[2020-08-25] MEDS: D5W-AA 4.25% with LYTES 1,000 ML IV SCH (09:37)
[2020-08-25] MEDS: Insulin Glargine 25 UNITS in Pre-Filled Syringe 1 EACH SC SCH (09:37)
[2020-08-25] MEDS: HumaLOG 300 UNITS/3 ML VIAL SC PRN ×2 (12:25→16:49)
[2020-08-25] MEDS: Acetaminophen 325 MG TAB PO PRN (16:31)
[2020-08-25] MEDS: Zolpidem Tartrate 5 MG TAB PO PRN (22:07)
[2020-08-26] MEDS: hydrOXYzine Pamoate 25 mg Capsule PO SCH ×4 (00:24→17:40)
[2020-08-26] MEDS: Cefepime 1 GM in Sodium Chloride 0.9% 100 ML IVPB SCH (03:00)
[2020-08-26] MEDS: Acetaminophen 325 MG TAB PO PRN ×2 (05:24→17:42)
--- NOTE | 2020-08-26 05:58 | PDOC.FM ---
- Subjective Subjective: Patient doing well this morning, just had a poor night sleep. States is breathing is stable, denies cough. Was able to eat a steak dinner last night and tolerated this well. - Objective Vital Signs & Weight: Vital Signs (12 hours) Temp Pulse Resp BP Pulse Ox 08/25/20 20:00 98.2 F 82 18 117/111 H 91 L Weight Admit Weight 90.174 kg Weight 90.174 kg Most Recent Monitor Data Heart Rate from ECG 88 NIBP 132/88 NIBP BP-Mean 102 Respiration from ECG 27 SpO2 85 I&O: 08/24/20 08/25/20 08/26/20 06:59 06:59 06:59 Intake Total 1600 3275 1820 Output Total 1075 2100 900 Balance 525 1175 920 Result Diagrams: 08/26/20 06:45 08/26/20 06:45 Phys Exam - Physical Examination Constitutional: NAD HEENT: moist MMs, sclera anicteric Neck: supple, full ROM Respiratory: no wheezing, clear to auscultation bilateral Cardiovascular: RRR, no significant murmur Gastrointestinal: soft, no distention Musculoskeletal: no edema, pulses present Neurological: non-focal, moves all 4 limbs Psychiatric: normal affect Skin: no rash, normal turgor Dx/Plan (1) KEYA (acute kidney injury) Code(s): N17.9 - ACUTE KIDNEY FAILURE, UNSPECIFIED Status: Acute (2) Acute respiratory failure with hypoxia Code(s): J96.01 - ACUTE RESPIRATORY FAILURE WITH HYPOXIA Status: Acute (3) Pneumonia due to COVID-19 virus Code(s): U07.1 - COVID-19; J12.89 - OTHER VIRAL PNEUMONIA Status: Acute (4) Transaminitis Code(s): R74.01 - ELEVATION OF LEVELS OF LIVER TRANSAMINASE LEVELS Status: Acute - Plan Plan: #Acute hypoxic respiratory failure 2/2 COVID Pneumonia, improved - Symptom onset: 08/08 per , COVID + test on admission 08/13. positive ~2wks prior to admission - Continue methylprednisolone 40mg BID - Wean from HFNC as tolerated; patient did well throughout the day yesterday on 50L @ 60% FiO2 - S/P convalescent plasma 08/14 and 08/24 - Dulera and albuterol schd - Pulm consulted, continue Doxy(08/14), apprec recs - D/C cefepime (08/14-08/25) #Polysubstance Abuse - Admits to non-prescribed xanax use, multiple mg per day for past few years, as well as non-prescribed percocet use - Rx for Ambien, Soma, and tramadol from PCP - Patient had increased anxiety and WOB 08/19 after decreasing serax, increased back to 20mg TID -will decrease serax as lexapro is increased - provided information for [facility] for addiction to nursing t o give to patient - Hydroxyzine q6h - On lexapro for anxiety #Indeterminate troponin, resolved - 0.046 -> 0.043 -> 0.022 - EKG t wave inversion lead 3, otherwise no acute ST changes #Hyperglycemia - likely 2/2 acute stress and steroids, monitor - Continue to increase daily levemir per ssi requirements - A1C 5.8 #Metabolic acidosis - Anion gap of 9 - Bicarb 18>14>16>18>21 - Suspect compensation from respiratory acidosis, will monitor, consider ABG if clinically indicated #Hypertension - HCTZ d/c'd - BID labetalol added 08/18 #Depression/Anxiety - No formal diagnosis, but transient episodes of SI - Will consult MHMR when medically cleared to eval prior to discharge. Need to provide with resources moving forward. - Started on lexapro, will continue to monitor and increase as able #Transaminitis, improved - Likely 2/2 COVID 19 PNA #KEYA, resolved #Seasonal Allergies -5mg claritin po BID IVF: SL DVT ppx: Lovenox 40mg BID Code Status: Full PCP: Frank Addendum - Attending - Attending Attestation Date/Time: 08/26/20 1127 I personally evaluated the patient and discussed the management with Dr. Rowe. I agree with the History, Examination, Assessment and Plan documented above with any addition or exceptions noted below.
[2020-08-26 06:59] LABS: Hemoglobin 15.5 g/dL (14.0-18.0); Mean Corpuscular HGB CONC 34.7 g/dL (32.0-36.0); Mean Corpuscular Volume 92.4 fL (78.0-98.0); Mean Platelet Volume 8.8 fL (7.4-10.4); Platelet Count 550 thou/uL (130-400); RBC Distribution Width 12.2 % (11.5-14.5); Red Blood Cell (RBC) Count 4.85 mill/uL (4.70-6.10); White Blood Cell (WBC) Count 21.6 thou/uL (4.8-10.8)
[2020-08-26] MEDS: Mometasone 200 MCG/Formoterol 5 MCG 120 PUFF INHALER INH SCH ×2 (07:00→18:34)
[2020-08-26 07:16] LABS: ALT (SGPT) 82 U/L (8-55); AST (SGOT) 31 U/L (5-34); Albumin 3.5 g/dL (3.5-5.0); Alkaline Phosphatase 95 U/L (40-110); Anion Gap 14 mmol/L (10-20); BUN (Urea Nitrogen) 31 mg/dL (8.4-25.7); Bilirubin, Total 0.7 mg/dL (0.2-1.2); CRP (Inflammatory) 1.24 mg/dL (= or < 0.5); Calc. Creatinine Clearance 132 mL/min (70-130); Calcium 8.9 mg/dL (7.8-10.44); Carbon Dioxide 21 mmol/L (22-29); Chloride 102 mmol/L (98-107); Estimated GFR-MDRD Greater than 90; Globulin 3.4 g/dL (2.4-3.5); Glucose 155 mg/dL (70-105); Potassium 4.8 mmol/L (3.5-5.1); Protein, Total 6.9 g/dL (6.0-8.3); Sodium 132 mmol/L (136-145)
[2020-08-26] MEDS: HumaLOG 300 UNITS/3 ML VIAL SC PRN (07:25)
[2020-08-26 08:26] LABS: Lymphocytes 9 % (21-51); MDiff Complete? YES; Monocytes 1 % (0-10); Neutrophil 90 % (42-75); Platelet Morphology Comment Appears Increased; RBC Morphology Normal
[2020-08-26] MEDS: Labetalol 100 MG TAB PO SCH ×2 (08:45→20:20)
[2020-08-26] MEDS: Loratadine 10 MG TAB PO SCH ×2 (08:46→20:20)
[2020-08-26] MEDS: Famotidine/PF 20 mg/2ml Vial SLOW IVP SCH ×2 (08:46→20:21)
[2020-08-26] MEDS: Escitalopram Oxalate 10 mg Tablet PO SCH (08:46)
[2020-08-26] MEDS: methylPREDNISolone Sod Succ 40 MG VIAL IVP SCH ×2 (08:47→20:21)
[2020-08-26] MEDS: Oxazepam 10 MG CAP PO SCH ×3 (08:47→20:21)
[2020-08-26] MEDS: Enoxaparin Sodium 40 MG/0.4 ML SYRINGE SC SCH ×2 (08:48→20:21)
--- NOTE | 2020-08-26 09:40 | RAD ---
PORTABLE CHEST: HISTORY: COVID pneumonia. COMPARISON: 08/23/2020 exam. FINDINGS: Heart size is enlarged. Aorta is tortuous. The bilateral infiltrates are not improved. The changes actually appear somewhat worsened in both lung justin. Subcutaneous emphysema is noted over the righ t chest. There could potentially be a tiny apical pneumothorax present. IMPRESSION: 1. Worsening bilateral infiltrates. 2. Subcutaneous emphysema over the right chest. Question of a tiny right apical pneumothorax. POS: OFF
[2020-08-26] MEDS: Insulin Glargine 28 UNITS in Pre-Filled Syringe 1 EACH SC SCH (10:47)
[2020-08-26] MEDS: D5W-AA 4.25% with LYTES 1,000 ML IV SCH (10:51)
[2020-08-26] MEDS: Albuterol 200 PUFF (6.7GM INHALER) INH SCH ×4 (12:50→18:34)
[2020-08-27] MEDS: Albuterol 200 PUFF (6.7GM INHALER) INH SCH ×3 (01:00→13:55)
[2020-08-27] MEDS: hydrOXYzine Pamoate 25 mg Capsule PO SCH ×4 (01:10→17:36)
[2020-08-27] MEDS: Acetaminophen 325 MG TAB PO PRN ×3 (01:18→20:13)
[2020-08-27] MEDS: Mometasone 200 MCG/Formoterol 5 MCG 120 PUFF INHALER INH SCH ×2 (05:41→17:36)
--- NOTE | 2020-08-27 06:21 | PDOC.FM ---
- Subjective Subjective: Patient doing okay this morning. States he slept a little last night. Discussed medication changes in the upcoming days as we increase his lexapro. He said this was fine as long as I "don't take a way the little pink pill." He is also asking for his to be able to bring him dinner. - Objective Vital Signs & Weight: Vital Signs (12 hours) Temp Pulse Resp Pulse Ox 08/26/20 20:20 98 08/26/20 20:00 98.6 F 92 20 94 L Weight Admit Weight 90.174 kg Weight 90.174 kg Most Recent Monitor Data Heart Rate from ECG 88 NIBP 132/88 NIBP BP-Mean 102 Respiration from ECG 27 SpO2 85 I&O: 08/25/20 08/26/20 08/27/20 06:59 06:59 06:59 Intake Total 3275 2620 1200 Output Total 2100 1800 900 Balance 1175 820 300 Result Diagrams: 08/26/20 06:45 08/26/20 06:45 Phys Exam - Physical Examination Constitutional: NAD HEENT: sclera anicteric leukoplakia of the tongue Neck: supple, full ROM Respiratory: no wheezing, clear to auscultation bilateral Cardiovascular: RRR, no significant murmur Gastrointestinal: soft, no distention slight edema of R extremity compared to L Neurological: moves all 4 limbs Psychiatric: normal affect Skin: no rash Dx/Plan (1) KEYA (acute kidney injury) Code(s): N17.9 - ACUTE KIDNEY FAILURE, UNSPECIFIED Status: Acute (2) Acute respiratory failure with hypoxia Code(s): J96.01 - ACUTE RESPIRATORY FAILURE WITH HYPOXIA Status: Acute (3) Pneumonia due to COVID-19 virus Code(s): U07.1 - COVID-19; J12.89 - OTHER VIRAL PNEUMONIA Status: Acute (4) Transaminitis Code(s): R74.01 - ELEVATION OF LEVELS OF LIVER TRANSAMINASE LEVELS Status: Acute - Plan Plan: #Acute hypoxic respiratory failure 2/2 COVID Pneumonia, improved - Symptom onset: 08/08 per , COVID + test on admission 08/13. positive ~2wks prior to admission - Continue methylprednisolone 40mg BID - Wean from HFNC as tolerated; patient did well throughout the day yesterday on 45L @ 45-55% FiO2 - S/P convalescent plasma 10/28 and 08/24 - Dulera and albuterol schd - Pulm consulted, continue Doxy(08/14), apprec recs - D/C cefepime (08/14-08/25) - CXR 08/26 demonstrated R subcutaneous emphysema and possible R apical pneumothorax, repeat today; will continue to monitor in the setting of stable respiratory status and vitals #Polysubstance Abuse - Admits to non-prescribed xanax use, multiple mg per day for past few years, as well as non-prescribed percocet use - Rx for Ambien, Soma, and tramadol from PCP - Patient had increased anxiety and WOB 08/19 after decreasing serax, increased back to 20mg TID -will decrease serax as lexapro is increased - provided information for [facility] for addiction to nursing to give to patient - Hydroxyzine q6h - On lexapro for anxiety; will titrate up on 08/28 #Oral Candidiasis -likely due to steroids and inhaler use -nystatin SSW QID #Indeterminate troponin, resolved - 0.046 -> 0.043 -> 0.022 - EKG t wave inversion lead 3, otherwise no acute ST changes #Hyperglycemia - likely 2/2 acute stress and steroids, monitor - Continue to increase daily levemir per ssi requirements - A1C 5.8 #Metabolic acidosis - Anion gap of 9 - Bicarb 18>14>16>18>21 - Suspect compensation from respiratory acidosis, will monitor, consider ABG if clinically indicated #Hypertension - HCTZ d/c'd - BID labetalol added 08/18 #Depression/Anxiety - No formal diagnosis, but transient episodes of SI - Will consult MHMR when medically cleared to eval prior to discharge. Need to provide with resources moving forward. - Started on lexapro, will continue to monitor and increase as able #Transaminitis, improved - Likely 2/2 COVID 19 PNA #KEYA, resolved #Seasonal Allergies -5mg claritin po BID IVF: SL DVT ppx: Lovenox 40mg BID Code Status: Full PCP: Frank Addendum - Attending - Attending Attestation Date/Time: 08/27/20 8454 I personally evaluated the patient and discussed the management with Dr. Rowe. I agree with the History, Examination, Assessment and Plan documented above with any addition or exceptions noted below. Continue COVID care. Respiratory status overall stable. CXR findings from yesterday discussed with Pulm and no changes to mgmt made. Repeat CXR if resp function worsens.
[2020-08-27] MEDS: methylPREDNISolone Sod Succ 40 MG VIAL IVP SCH ×2 (08:27→20:12)
[2020-08-27] MEDS: Nystatin 500,000 UNITS/5 ML UDCUP SSW SCH ×4 (08:27→20:12)
[2020-08-27] MEDS: Loratadine 10 MG TAB PO SCH ×2 (08:27→20:12)
[2020-08-27] MEDS: Oxazepam 10 MG CAP PO SCH ×3 (08:28→20:12)
[2020-08-27] MEDS: Escitalopram Oxalate 10 mg Tablet PO SCH (08:29)
[2020-08-27] MEDS: Enoxaparin Sodium 40 MG/0.4 ML SYRINGE SC SCH ×2 (08:29→20:13)
[2020-08-27] MEDS: Famotidine/PF 20 mg/2ml Vial SLOW IVP SCH ×2 (08:29→20:14)
[2020-08-27] MEDS: Labetalol 100 MG TAB PO SCH ×2 (08:29→20:12)
--- NOTE | 2020-08-27 09:44 | RAD ---
FRONTAL RADIOGRAPH CHEST: Date: 08/27/2020 COMPARISON: 08/26/2020. HISTORY: COVID pneumonia. FINDINGS: Heart and mediastinal contours are stable. There is subcutaneous emphysema overlying the right axillary region/right upper chest and the base of the neck on the left. No obvious pneumothorax is evident, but a small pneumothorax in the right lung apex may be obscured by subcutaneous emphysema. There is coarse interstitial and alveolar opacity in the perihilar regions and both lung bases. Pleural thickening and/or small volume pleural fluid note d within the lateral lung bases, left greater than right. IMPRESSION: Interstitial and alveolar opacity, as well as pleural based density in the lung bases. Right-sided tubbs bcutaneous gas. POS: H
[2020-08-27] MEDS: Insulin Glargine 28 UNITS in Pre-Filled Syringe 1 EACH SC SCH (11:06)
[2020-08-27] MEDS: D5W-AA 4.25% with LYTES 1,000 ML IV SCH (11:07)
[2020-08-27] MEDS: Zolpidem Tartrate 5 MG TAB PO PRN (20:12)
[2020-08-28] MEDS: Albuterol 200 PUFF (6.7GM INHALER) INH SCH ×5 (01:00→20:13)
[2020-08-28] MEDS: hydrOXYzine Pamoate 25 mg Capsule PO SCH ×4 (01:18→17:11)
[2020-08-28] MEDS: Mometasone 200 MCG/Formoterol 5 MCG 120 PUFF INHALER INH SCH ×2 (05:33→18:24)
--- NOTE | 2020-08-28 06:25 | PDOC.FM ---
- Subjective Subjective: Patient doing well this morning, reports he feels comfortable. States he is looking forward to his bringing him some of her home-made stew tonight for dinner. Denies dyspnea. - Objective Vital Signs & Weight: Vital Signs (12 hours) Temp Pulse Resp BP Pulse Ox 08/28/20 05:33 89 18 93 L 08/28/20 04:00 98.2 F 89 19 134/95 H 93 L 08/27/20 20:00 98.0 F 84 17 94 L Weight Admit Weight 90.174 kg Weight 90.174 kg Most Recent Monitor Data Heart Rate from ECG 88 NIBP 132/88 NIBP BP-Mean 102 Respiration from ECG 27 SpO2 85 I&O: 08/26/20 08/27/20 08/28/20 06:59 06:59 06:59 Intake Total 2620 2200 1647 Output Total 1800 2500 851 Balance 820 -300 796 Result Diagrams: 08/28/20 06:05 08/28/20 06:05 Phys Exam - Physical Examination Constitutional: NAD HEENT: sclera anicteric oral candidiasis Neck: supple, full ROM Respiratory: no wheezing, clear to auscultation bilateral Cardiovascular: RRR, no significant murmur Gastrointestinal: soft, no distention Musculoskeletal: no edema Neurological: non-focal, moves all 4 limbs Psychiatric: normal affect Skin: no rash Dx/Plan (1) KEYA (acute kidney injury) Code(s): N17.9 - ACUTE KIDNEY FAILURE, UNSPECIFIED Status: Acute (2) Acute respiratory failure with hypoxia Code(s): J96.01 - ACUTE RESPIRATORY FAILURE WITH HYPOXIA Status: Acute (3) Pneumonia due to COVID-19 virus Code(s): U07.1 - COVID-19; J12.89 - OTHER VIRAL PNEUMONIA Status: Acute (4) Transaminitis Code(s): R74.01 - ELEVATION OF LEVELS OF LIVER TRANSAMINASE LEVELS Status: Acute - Plan Plan: #Acute hypoxic respiratory failure 2/2 COVID Pneumonia, improved - Symptom onset: 08/08 per , COVID + test on admission 08/13. positive ~2wks prior to admission - Continue methylprednisolone 40mg BID - Wean from HFNC as tolerated; patient required increased HFNC to 60L @ 92% FiO@ overnight - S/P convalescent plasma 08/14 and 08/24 - Dulera and albuterol schd - Pulm consulted, continue Doxy(08/14), apprec recs - D/C cefepime (08/14-08/25) - CXR 08/26 demonstrated R subcutaneous emphysema, f/u 08/28 demonstrates no pn eumothorax #Polysubstance Abuse - Admits to non-prescribed xanax use, multiple mg per day for past few years, as well as non-prescribed percocet use - Rx for Ambien, Soma, and tramadol from PCP - Patient had increased anxiety and WOB 08/19 after decreasing serax, increased b ack to 20mg TID -will decrease serax as lexapro is increased - provided information for [facility] for addiction to nursing to give to patient - Hydroxyzine q6h - On lexapro for anxiety; increased 08/28 #Oral Candidiasis -likely due to steroids and inhaler use -nystatin SSW QID #Indeterminate troponin, resolved - 0.046 -> 0.043 -> 0.022 - EKG t wave inversion lead 3, otherwise no acute ST changes #Hyperglycemia - likely 2/2 acute stress and steroids, monitor - Continue to increase daily levemir per ssi requirements - A1C 5.8 #Metabolic acidosis, resolved - Anion gap of 9 - Bicarb 18>14>16>18>21>24 - Suspect compensation from respiratory acidosis, will monitor, consider ABG if clinically indicated #Hypertension - HCTZ d/c'd - BID labetalol added 08/18 #Depression/Anxiety - No formal diagnosis, but transient episodes of SI - Will consult MHMR when medically cleared to eval prior to discharge. Need to provide with resources moving forward. - Started on lexapro, will continue to monitor and increase as able #Transaminitis, improved - Likely 2/2 COVID 19 PNA #KEYA, resolved #Seasonal Allergies -5mg claritin po BID IVF: SL DVT ppx: Lovenox 40mg BID Code Status: Full PCP: Frank Addendum - Attending - Attending Attestation Date/Time: 08/28/20 6709 I personally evaluated the patient and discussed the management with Dr. Rowe. I agree with the History, Examination, Assessment and Plan documented above with any addition or exceptions noted below.
[2020-08-28 07:11] LABS: #Eosinphils 0.1 thou/uL (0.0-0.7); #Lymphocytes 2.1 thou/uL (1.20-3.40); #Monocytes 1.4 thou/uL (0.11-0.59); #Neutrophils 15.8 thou/uL (1.40-6.50); %Basophils 0.1 % (0.0-1.0); %Eosinophils 0.5 % (0.0-10.0); %Lymphocytes 10.7 % (21.0-51.0); %Monocytes 7.2 % (0.0-10.0); %Neutrophils 81.6 % (42.0-75.0); Hemoglobin 15.7 g/dL (14.0-18.0); Mean Corpuscular HGB CONC 33.1 g/dL (32.0-36.0); Mean Corpuscular Volume 93.8 fL (78.0-98.0); Mean Platelet Volume 9.4 fL (7.4-10.4); Platelet Count 484 thou/uL (130-400); RBC Distribution Width 12.5 % (11.5-14.5); Red Blood Cell (RBC) Count 5.05 mill/uL (4.70-6.10); White Blood Cell (WBC) Count 19.3 thou/uL (4.8-10.8)
[2020-08-28 07:23] LABS: ALT (SGPT) 113 U/L (8-55); AST (SGOT) 36 U/L (5-34); Albumin 3.5 g/dL (3.5-5.0); Alkaline Phosphatase 109 U/L (40-110); Anion Gap 12 mmol/L (10-20); BUN (Urea Nitrogen) 32 mg/dL (8.4-25.7); Bilirubin, Total 0.6 mg/dL (0.2-1.2); CRP (Inflammatory) 0.72 mg/dL (= or < 0.5); Calc. Creatinine Clearance 137 mL/min (70-130); Calcium 9.1 mg/dL (7.8-10.44); Carbon Dioxide 24 mmol/L (22-29); Chloride 102 mmol/L (98-107); Estimated GFR-MDRD Greater than 90; Globulin 3.5 g/dL (2.4-3.5); Glucose 103 mg/dL (70-105); Potassium 4.3 mmol/L (3.5-5.1); Sodium 134 mmol/L (136-145)
--- NOTE | 2020-08-28 08:07 | RAD ---
Exam: Chest one view HISTORY:COVID pneumonia. Comparison: 08/27/2020 FINDINGS: Cardiac silhouette: Normal Aorta: Unremarkable Pulmonary vessels: Normal Costophrenic angles: Clear LUNGS: Persistent multi focal interstitial and alveolar opacities. Pneumothorax: None Additional findings: Stable subcutaneous emphysema in the right chest and neck. Osseous abnormalities: None IMPRESSION: No significant interval change.
[2020-08-28] MEDS: Insulin Glargine 28 UNITS in Pre-Filled Syringe 1 EACH SC SCH (08:08)
[2020-08-28] MEDS: Famotidine/PF 20 mg/2ml Vial SLOW IVP SCH ×2 (08:09→20:13)
[2020-08-28] MEDS: Oxazepam 10 MG CAP PO SCH ×3 (08:10→20:13)
[2020-08-28] MEDS: Nystatin 500,000 UNITS/5 ML UDCUP SSW SCH ×4 (08:10→20:15)
[2020-08-28] MEDS: Labetalol 100 MG TAB PO SCH ×2 (08:11→20:19)
[2020-08-28] MEDS: methylPREDNISolone Sod Succ 40 MG VIAL IVP SCH ×2 (08:11→20:14)
[2020-08-28] MEDS: Escitalopram Oxalate 10 mg Tablet PO SCH (08:11)
[2020-08-28] MEDS: Loratadine 10 MG TAB PO SCH ×2 (08:11→20:14)
[2020-08-28] MEDS: Enoxaparin Sodium 40 MG/0.4 ML SYRINGE SC SCH ×2 (08:14→20:13)
[2020-08-28] MEDS: Acetaminophen 325 MG TAB PO PRN ×2 (08:41→20:15)
[2020-08-28] MEDS: HumaLOG 300 UNITS/3 ML VIAL SC PRN (12:24)
[2020-08-28] MEDS: Benzonatate 100 MG CAP PO PRN (20:13)
[2020-08-28] MEDS: Zolpidem Tartrate 5 MG TAB PO PRN (20:15)
[2020-08-28] MEDS: D5W-AA 4.25% with LYTES 1,000 ML IV SCH (20:16)
[2020-08-29] MEDS: hydrOXYzine Pamoate 25 mg Capsule PO SCH ×4 (00:51→16:43)
[2020-08-29] MEDS: Albuterol 200 PUFF (6.7GM INHALER) INH SCH ×4 (00:52→18:29)
[2020-08-29] MEDS: Mometasone 200 MCG/Formoterol 5 MCG 120 PUFF INHALER INH SCH ×2 (05:43→16:43)
[2020-08-29] MEDS: Acetaminophen 325 MG TAB PO PRN ×2 (05:45→20:58)
[2020-08-29] MEDS: HumaLOG 300 UNITS/3 ML VIAL SC PRN (05:46)
--- NOTE | 2020-08-29 05:59 | PDOC.FM ---
- Subjective Subjective: Patient is doing well this morning, reports his anxiety is improved today. States his breathing is improved. Excited for his 's stew, as she did not bring it by last night but plans to bring it by tonight. - Objective Vital Signs & Weight: Vital Signs (12 hours) Temp Pulse Resp BP Pulse Ox 08/29/20 03:15 98.4 F 80 20 125/81 100 08/29/20 00:30 98.9 F 75 21 H 125/72 100 08/28/20 20:12 97.9 F 85 21 H 123/81 100 Weight Admit Weight 90.174 kg Weight 90.174 kg Most Recent Monitor Data Heart Rate from ECG 88 NIBP 132/88 NIBP BP-Mean 102 Respiration from ECG 27 SpO2 85 I&O: 08/27/20 08/28/20 08/29/20 06:59 06:59 06:59 Intake Total 2200 3247 5580 Output Total 2500 2251 900 Balance -810 403 9605 Result Diagrams: 08/28/20 06:05 08/28/20 06:05 Phys Exam - Physical Examination Constitutional: NAD HEENT: moist MMs, sclera anicteric Neck: supple, full ROM Respiratory: no wheezing, clear to auscultation bilateral Cardiovascular: RRR, no significant murmur Gastrointestinal: soft, no distention Musculoskeletal: no edema Neurological: non-focal, moves all 4 limbs Psychiatric: normal affect Skin: no rash Dx/Plan (1) KEYA (acute kidney injury) Code(s): N17.9 - ACUTE KIDNEY FAILURE, UNSPECIFIED Status: Acute (2) Acute respiratory failure with hypoxia Code(s): J96.01 - ACUTE RESPIRATORY FAILURE WITH HYPOXIA Status: Acute (3) Pneumonia due to COVID-19 virus Code(s): U07.1 - COVID-19; J12.89 - OTHER VIRAL PNEUMONIA Status: Acute (4) Transaminitis Code(s): R74.01 - ELEVATION OF LEVELS OF LIVER TRANSAMINASE LEVELS Status: Acute - Plan Plan: #Acute hypoxic respiratory failure 2/2 COVID Pneumonia, improved - Symptom onset: 08/08 per , COVID + test on admission 08/13. positive ~2wks prior to admission - Continue methylprednisolone 40mg BID - Wean from HFNC as tolerated; patient has been satting 100% on HFNC 60L @ 93- 94%, will wean today - S/P convalescent plasma 08/14 and 08/24 - Dulera and albuterol schd - Pulm consulted, continue Doxy(08/14), apprec recs - D/C cefepime (08/14-08/25) - CXR 08/26 demonstrated R subcutaneous emphysema, f/u 08/28 demonstrates no pneumothorax #Polysubstance Abuse - Admits to non-prescribed xanax use, multiple mg per day for past few years, as well as non-prescribed percocet use - Rx for Ambien, Soma, and tramadol from PCP - Patient had increased anxiety and WOB 08/19 after decreasing serax, increased back to 20mg TID -will decrease serax as lexapro is increased - provided information for [facility] for addiction to nursing to give to patient - Hydroxyzine q6h - On lexapro for anxiety; increased 08/28; patient states he believes this is helping #Oral Candidiasis -likely due to steroids and inhaler use -nystatin SSW QID #Indeterminate troponin, resolved - 0.046 -> 0.043 -> 0.022 - EKG t wave inversion lead 3, otherwise no acute ST changes #Hyperglycemia - likely 2/2 acute stress and steroids, monitor - Continue to increase daily levemir per ssi requirements - A1C 5.8 #Metabolic acidosis, resolved - Anion gap of 9 - Bicarb 18>14>16>18>21>24 - Suspect compensation from respiratory acidosis, will monitor, consider ABG if clinically indicated #Hypertension - HCTZ d/c'd - BID labetalol added 08/18 #Depression/Anxiety - No formal diagnosis, but transient episodes of SI - Will consult MHMR when medically cleared to eval prior to discharge. Need to provide with resources moving forward. - Started on lexapro, will continue to monitor and increase as able #Transaminitis, improved - Likely 2/2 COVID 19 PNA #KEYA, resolved #Seasonal Allergies -5mg claritin po BID IVF: SL DVT ppx: Lovenox 40mg BID Code Status: Full PCP: Frank Addendum - Attending - Attending Attestation Date/Time: 08/29/20 6489 I personally evaluated the patient and discussed the management with Dr. Rowe. I agree with the History, Examination, Assessment and Plan documented above with any addition or exceptions noted below. Continue COVID care. Wean from HFNC as tolerated.
--- NOTE | 2020-08-29 07:51 | RAD ---
RADIOGRAPH CHEST 1 VIEW: DATE: 08/29/2020 TIME: 5:33 AM HISTORY: 54-year-old male with COVID-19 pneumonia COMPARISON: 08/28/2020 FINDINGS: Multifocal patchy alveolar and interstitial infiltrates, left worse than right. These appear minimall y improved, but this apparent difference is questionably due to deeper inspiration on the current study. No cardiomegaly. No pneumothorax. IMPRESSION: Questionable minimal improvement in the extensive bilateral pneumonia
[2020-08-29] MEDS: Nystatin 500,000 UNITS/5 ML UDCUP SSW SCH ×4 (08:06→20:51)
[2020-08-29] MEDS: Insulin Glargine 28 UNITS in Pre-Filled Syringe 1 EACH SC SCH (08:06)
[2020-08-29] MEDS: Famotidine/PF 20 mg/2ml Vial SLOW IVP SCH ×2 (08:07→20:51)
[2020-08-29] MEDS: Escitalopram Oxalate 10 mg Tablet PO SCH (08:07)
[2020-08-29] MEDS: Oxazepam 10 MG CAP PO SCH ×3 (08:07→20:52)
[2020-08-29] MEDS: methylPREDNISolone Sod Succ 40 MG VIAL IVP SCH ×2 (08:07→20:52)
[2020-08-29] MEDS: Loratadine 10 MG TAB PO SCH ×2 (08:07→20:51)
[2020-08-29] MEDS: Enoxaparin Sodium 40 MG/0.4 ML SYRINGE SC SCH ×2 (08:09→20:51)
[2020-08-29] MEDS: Labetalol 100 MG TAB PO SCH ×2 (11:26→20:58)
[2020-08-29] MEDS: Benzonatate 100 MG CAP PO PRN (20:51)
[2020-08-29] MEDS: Zolpidem Tartrate 5 MG TAB PO PRN (20:52)
[2020-08-30] MEDS: hydrOXYzine Pamoate 25 mg Capsule PO SCH ×4 (00:29→18:30)
[2020-08-30] MEDS: Albuterol 200 PUFF (6.7GM INHALER) INH SCH ×4 (00:29→19:43)
[2020-08-30] MEDS: D5W-AA 4.25% with LYTES 1,000 ML IV SCH (01:05)
[2020-08-30] MEDS: Acetaminophen 325 MG TAB PO PRN ×5 (01:58→23:30)
[2020-08-30] MEDS: Mometasone 200 MCG/Formoterol 5 MCG 120 PUFF INHALER INH SCH ×2 (05:17→18:25)
--- NOTE | 2020-08-30 06:08 | PDOC.FM ---
- Subjective Subjective: Patient reports he feels well this morning, was able to enjoy his 's stew last night. Tolerating po well over the last few days. Has a goal to walk to the wall and back several times today. - Objective Vital Signs & Weight: Vital Signs (12 hours) Temp Pulse Resp BP Pulse Ox 08/30/20 05:00 98.3 F 70 19 131/83 100 08/29/20 23:33 70 19 97 08/29/20 20:50 98.6 F 82 20 135/86 96 Weight Admit Weight 90.174 kg Weight 90.174 kg Most Recent Monitor Data Heart Rate from ECG 88 NIBP 132/88 NIBP BP-Mean 102 Respiration from ECG 27 SpO2 85 I&O: 08/28/20 08/29/20 08/30/20 06:59 06:59 06:59 Intake Total 3247 5580 4790 Output Total 2251 900 1300 Balance 996 4680 3490 Result Diagrams: 08/28/20 06:05 08/28/20 06:05 Phys Exam - Physical Examination Constitutional: NAD HEENT: moist MMs, sclera anicteric Neck: supple, full ROM Respiratory: no wheezing, clear to auscultation bilateral Cardiovascular: RRR, no significant murmur Gastrointestinal: soft, no distention Musculoskeletal: no edema Neurological: non-focal, moves all 4 limbs Psychiatric: normal affect Skin: no rash Dx/Plan (1) KEYA (acute kidney injury) Code(s): N17.9 - ACUTE KIDNEY FAILURE, UNSPECIFIED Status: Acute (2) Acute respiratory failure with hypoxia Code(s): J96.01 - ACUTE RESPIRATORY FAILURE WITH HYPOXIA Status: Acute (3) Pneumonia due to COVID-19 virus Code(s): U07.1 - COVID-19; J12.89 - OTHER VIRAL PNEUMONIA Status: Acute (4) Transaminitis Code(s): R74.01 - ELEVATION OF LEVELS OF LIVER TRANSAMINASE LEVELS Status: Acute - Plan Plan: #Acute hypoxic respiratory failure 2/2 COVID Pneumonia, improved - Symptom onset: 08/08 per , COVID + test on admission 08/13. positive ~2wks prior to admission - Continue methylprednisolone 40mg BID - Wean from HFNC as tolerated; patient has been satting 100% on HFNC 60L @ 70%, weaned from 90% FiO2 overnight, will continue to wean today - S/P convalescent plasma 08/14 and 08/24 - Dulera and albuterol schd - Pulm consulted, continue Doxy(08/14), apprec recs - D/C cefepime (08/14-08/25) - CXR 08/26 demonstrated R subcutaneous emphysema, f/u 08/28 demonstrates no pneumothorax - Patient tolerating more of his dinner, continues to feel better; as patient has tolerated good po intake over last 2 days will d/c PPN #Polysubstance Abuse - Admits to non-prescribed xanax use, multiple mg per day for past few years, as well as non-prescribed percocet use - Rx for Ambien, Soma, and tramadol from PCP - Patient had increased anxiety and WOB 08/19 after decreasing serax, increased back to 20mg TID -will decrease serax as lexapro is increased - provided information for [facility] for addiction to nursing to give to patient - Hydroxyzine q6h - On lexapro for anxiety; increased 08/28; patient states he believes this is helping #Oral Candidiasis -likely due to steroids and inhaler use -nystatin SSW QID #Indeterminate troponin, resolved - 0.046 -> 0.043 -> 0.022 - EKG t wave inversion lead 3, otherwise no acute ST changes #Hyperglycemia - likely 2/2 acute stress and steroids, monitor - Continue to increase daily levemir per ssi requirements - A1C 5.8 #Metabolic acidosis, resolved - Anion gap of 9 - Bicarb 18>14>16>18>21>24 - Suspect compensation from respiratory acidosis, will monitor, consider ABG if clinically indicated #Hypertension - HCTZ d/c'd - BID labetalol added 08/18 #Depression/Anxiety - No formal diagnosis, but transient episodes of SI - Will consult MHMR when medically cleared to eval prior to discharge. Need to provide with resources moving forward. - Started on lexapro, will continue to monitor and increase as able #Transaminitis, improved - Likely 2/2 COVID 19 PNA #KEYA, resolved #Seasonal Allergies -5mg claritin po BID IVF: SL DVT ppx: Lovenox 40mg BID Code Status: Full PCP: Frank Addendum - Attending - Attending Attestation Date/Time: 08/30/20 8324 I personally evaluated the patient and discussed the management with Dr. Rowe. I agree with the History, Examination, Assessment and Plan documented above with any addition or exceptions noted below. Patient here for COVID care. Continue that and wean HFNC as tolerated.
[2020-08-30] MEDS: Nystatin 500,000 UNITS/5 ML UDCUP SSW SCH ×4 (09:57→23:00)
[2020-08-30] MEDS: methylPREDNISolone Sod Succ 40 MG VIAL IVP SCH ×2 (09:57→23:00)
[2020-08-30] MEDS: Insulin Glargine 28 UNITS in Pre-Filled Syringe 1 EACH SC SCH (09:57)
[2020-08-30] MEDS: Oxazepam 10 MG CAP PO SCH ×3 (09:58→23:30)
[2020-08-30] MEDS: Escitalopram Oxalate 10 mg Tablet PO SCH (09:58)
[2020-08-30] MEDS: Loratadine 10 MG TAB PO SCH ×2 (09:58→23:29)
[2020-08-30] MEDS: Enoxaparin Sodium 40 MG/0.4 ML SYRINGE SC SCH ×2 (09:59→23:27)
[2020-08-30] MEDS: Famotidine/PF 20 mg/2ml Vial SLOW IVP SCH ×2 (09:59→23:28)
[2020-08-30] MEDS: Labetalol 100 MG TAB PO SCH ×2 (12:58→23:28)
[2020-08-30] MEDS: Zolpidem Tartrate 5 MG TAB PO PRN (23:31)
[2020-08-31] MEDS: Albuterol 200 PUFF (6.7GM INHALER) INH SCH ×4 (01:00→18:40)
--- NOTE | 2020-08-31 05:54 | PDOC.FM ---
- Subjective Subjective: Patient doing well this morning, states he had dyspnea with activity yesterday and wasn't quite able to get up out of the bed. Discussed that his anxiety is well controlled. States that he discussed with his and he is a DNR. - Objective Vital Signs & Weight: Vital Signs (12 hours) Temp Pulse Resp BP BP Pulse Ox 08/31/20 00:00 97.9 F 82 18 124/72 08/30/20 23:28 88 120/78 08/30/20 20:00 98.7 F 88 19 120/78 100 Weight Admit Weight 90.174 kg Weight 90.174 kg Most Recent Monitor Data Heart Rate from ECG 88 NIBP 132/88 NIBP BP-Mean 102 Respiration from ECG 27 SpO2 85 I&O: 08/29/20 08/30/20 08/31/20 06:59 06:59 06:59 Intake Total 5580 4790 1600 Output Total 900 1300 Balance 4680 3490 1600 Result Diagrams: 08/31/20 10:36 08/31/20 10:36 Phys Exam - Physical Examination Constitutional: NAD HEENT: PERRLA, sclera anicteric Neck: supple, full ROM Respiratory: clear to auscultation bilateral Cardiovascular: RRR, no significant murmur Gastrointestinal: soft, no distention Musculoskeletal: no edema Neurological: non-focal, moves all 4 limbs Psychiatric: normal affect Skin: no rash Dx/Plan (1) KEYA (acute kidney injury) Code(s): N17.9 - ACUTE KIDNEY FAILURE, UNSPECIFIED Status: Acute (2) Acute respiratory failure with hypoxia Code(s): J96.01 - ACUTE RESPIRATORY FAILURE WITH HYPOXIA Status: Acute (3) Pneumonia due to COVID-19 virus Code(s): U07.1 - COVID-19; J12.89 - OTHER VIRAL PNEUMONIA Status: Acute (4) Transaminitis Code(s): R74.01 - ELEVATION OF LEVELS OF LIVER TRANSAMINASE LEVELS Status: Acute - Plan Plan: #Acute hypoxic respiratory failure 2/2 COVID Pneumonia, improved - Symptom onset: 08/08 per , COVID + test on admission 08/13. positive ~2wks prior to admission - Continue methylprednisolone 40mg BID - Wean from HFNC as tolerated; patient has been satting 100% on HFNC 60L @ 70%, weaned to 55L @ 60% overnight, will continue to try to wean as tolerated - S/P convalescent plasma 08/14 and 08/24 - Dulera and albuterol schd - Pulm consulted, continue Doxy(08/14), apprec recs - D/C cefepime (08/14-08/25) - CXR 08/26 demonstrated R subcutaneous emphysema, f/u 08/28 demonstrates no pneumothorax - Patient tolerating po intake #Polysubstance Abuse - Admits to non-prescribed xanax use, multiple mg per day for past few years, as well as non-prescribed percocet use - Rx for Ambien, Soma, and tramadol from PCP - Patient had increased anxiety and WOB 08/19 after decreasing serax, increased back to 20mg TID -will decrease serax as lexapro is increased - CM provided information for [facility] resources for addiction to nursing to give to patient - Hydroxyzine q6h - On lexapro for anxiety; increased 08/28; patient states he believes this is helping #Oral Candidiasis -likely due to steroids and inhaler use -nystatin SSW QID started 08/27 #Indeterminate troponin, resolved - 0.046 -> 0.043 -> 0.022 - EKG t wave inversion lead 3, otherwise no acute ST changes #Hyperglycemia - likely 2/2 acute stress and steroids, monitor - Continue to increase daily levemir per ssi requirements - A1C 5.8 #Metabolic acidosis, resolved - Anion gap of 9 - Bicarb 18>14>16>18>21>24 - Suspect compensation from respiratory acidosis, will monitor, consider ABG if clinically indicated #Hypertension - HCTZ d/c'd - BID labetalol added 08/18 #Depression/Anxiety - No formal diagnosis, but transient episodes of SI - Will consult MHMR when medically cleared to eval prior to discharge. Need to provide with resources moving forward. - Started on lexapro, will continue to monitor and increase as able #Transaminitis, improved - Likely 2/2 COVID 19 PNA #KEYA, resolved #Seasonal Allergies -5mg claritin po BID IVF: SL DVT ppx: Lovenox 40mg BID Code Status: Full PCP: Frank Addendum - Attending - Attending Attestation Date/Time: 08/31/20 1203 I personally evaluated the patient and discussed the management with Dr. Rowe I agree with the History, Examination, Assessment and Plan documented above with any addition or exceptions noted below.
[2020-08-31] MEDS: hydrOXYzine Pamoate 25 mg Capsule PO SCH ×4 (05:58→17:36)
[2020-08-31] MEDS: Mometasone 200 MCG/Formoterol 5 MCG 120 PUFF INHALER INH SCH ×2 (07:19→17:36)
[2020-08-31] MEDS: Escitalopram Oxalate 10 mg Tablet PO SCH (09:40)
[2020-08-31] MEDS: Nystatin 500,000 UNITS/5 ML UDCUP SSW SCH ×4 (09:40→20:39)
[2020-08-31] MEDS: methylPREDNISolone Sod Succ 40 MG VIAL IVP SCH ×2 (09:40→20:41)
[2020-08-31] MEDS: Enoxaparin Sodium 40 MG/0.4 ML SYRINGE SC SCH ×2 (09:41→20:40)
[2020-08-31] MEDS: Oxazepam 10 MG CAP PO SCH ×3 (09:41→20:40)
[2020-08-31] MEDS: Loratadine 10 MG TAB PO SCH ×2 (09:41→20:40)
[2020-08-31] MEDS: Famotidine/PF 20 mg/2ml Vial SLOW IVP SCH ×2 (09:41→20:40)
[2020-08-31] MEDS: Insulin Glargine 26 UNITS in Pre-Filled Syringe 1 EACH SC SCH (09:42)
[2020-08-31] MEDS: Labetalol 100 MG TAB PO SCH ×2 (09:44→20:46)
[2020-08-31] MEDS: Acetaminophen 325 MG TAB PO PRN ×2 (10:20→17:35)
[2020-08-31 10:46] LABS: #Eosinphils 0.1 thou/uL (0.0-0.7); #Lymphocytes 1.8 thou/uL (1.20-3.40); #Monocytes 0.9 thou/uL (0.11-0.59); #Neutrophils 11.1 thou/uL (1.40-6.50); %Basophils 0.2 % (0.0-1.0); %Eosinophils 0.4 % (0.0-10.0); %Lymphocytes 13.3 % (21.0-51.0); %Monocytes 6.3 % (0.0-10.0); %Neutrophils 79.8 % (42.0-75.0); Hemoglobin 14.5 g/dL (14.0-18.0); Mean Corpuscular HGB CONC 34.5 g/dL (32.0-36.0); Mean Corpuscular Hemoglobin 32.3 pg (27.0-31.0); Mean Corpuscular Volume 93.5 fL (78.0-98.0); Mean Platelet Volume 8.8 fL (7.4-10.4); Platelet Count 325 thou/uL (130-400); RBC Distribution Width 12.6 % (11.5-14.5); Red Blood Cell (RBC) Count 4.49 mill/uL (4.70-6.10); White Blood Cell (WBC) Count 13.9 thou/uL (4.8-10.8)
[2020-08-31 11:11] LABS: Anion Gap 15 mmol/L (10-20); BUN (Urea Nitrogen) 24 mg/dL (8.4-25.7); CRP (Inflammatory) 0.89 mg/dL (= or < 0.5); Calc. Creatinine Clearance 135 mL/min (70-130); Calcium 8.7 mg/dL (7.8-10.44); Carbon Dioxide 22 mmol/L (22-29); Chloride 101 mmol/L (98-107); Estimated GFR-MDRD Greater than 90; Glucose 161 mg/dL (70-105); Potassium 4.4 mmol/L (3.5-5.1); Sodium 134 mmol/L (136-145)
[2020-08-31] MEDS: Benzonatate 100 MG CAP PO PRN (20:40)
[2020-08-31] MEDS: Zolpidem Tartrate 5 MG TAB PO PRN (20:41)
[2020-09-01] MEDS: hydrOXYzine Pamoate 25 mg Capsule PO SCH ×4 (00:58→17:18)
[2020-09-01] MEDS: Albuterol 200 PUFF (6.7GM INHALER) INH SCH ×4 (01:03→18:14)
[2020-09-01] MEDS: Acetaminophen 325 MG TAB PO PRN ×3 (01:04→20:34)
--- NOTE | 2020-09-01 05:41 | PDOC.FM ---
- Subjective Subjective: Patient doing well this morning, denies dypsnea. Working well with physical therapy. Reports his anxiety is well controlled. - Objective Vital Signs & Weight: Vital Signs (12 hours) Temp Pulse Resp BP Pulse Ox 09/01/20 04:05 98.7 F 75 20 133/75 99 09/01/20 00:00 70 20 99 08/31/20 20:30 98.6 F 85 21 H 131/88 99 08/31/20 17:48 91 18 98 Weight Admit Weight 90.174 kg Weight 90.174 kg Most Recent Monitor Data Heart Rate from ECG 88 NIBP 132/88 NIBP BP-Mean 102 Respiration from ECG 27 SpO2 85 I&O: 08/30/20 08/31/20 09/01/20 06:59 06:59 06:59 Intake Total 4790 2000 1080 Output Total 1300 1400 1 Balance 3490 600 1079 Result Diagrams: 08/31/20 10:36 08/31/20 10:36 Phys Exam - Physical Examination HEENT: moist MMs, sclera anicteric Neck: supple, full ROM Respiratory: no wheezing, no rhonchi Cardiovascular: RRR, no significant murmur Gastrointestinal: soft, no distention Musculoskeletal: no edema Neurological: non-focal, moves all 4 limbs Psychiatric: normal affect Skin: no rash Dx/Plan (1) KEYA (acute kidney injury) Code(s): N17.9 - ACUTE KIDNEY FAILURE, UNSPECIFIED Status: Acute (2) Acute respiratory failure with hypoxia Code(s): J96.01 - ACUTE RESPIRATORY FAILURE WITH HYPOXIA Status: Acute (3) Pneumonia due to COVID-19 virus Code(s): U07.1 - COVID-19; J12.89 - OTHER VIRAL PNEUMONIA Status: Acute (4) Transaminitis Code(s): R74.01 - ELEVATION OF LEVELS OF LIVER TRANSAMINASE LEVELS Status: Acute - Plan Plan: #Acute hypoxic respiratory failure 2/2 COVID Pneumonia, improved - Symptom onset: 08/08 per , COVID + test on admission 08/13. positive ~2wks prior to admission - Continue methylprednisolone 40mg BID - Wean from HFNC as tolerated; patient has been satting upper 90s% on HFNC 45L @ 44%, weaned from 55L @ 60% yesterday, will continue to try to wean as tolerated - S/P convalescent plasma 08/14 and 08/24 - Dulera and albuterol schd - Pulm consulted, continue Doxy(08/27), apprec recs - D/C'd cefepime (08/14-08/25) - CXR 08/26 demonstrated R subcutaneous emphysema, f/u 08/28 demonstrates no pne umothorax - Patient tolerating po intake -patient is day 20 s/p +COVID test, can remove precautions at this time #Polysubstance Abuse - Admits to non-prescribed xanax use, multiple mg per day for past few years, as well as non-prescribed percocet use - Rx for Ambien, Soma, and tramadol from PCP - Patient had increased anxiety and WOB 08/19 after decreasing serax, increased back to 20mg TID -will decrease serax as lexapro is increased - CM provided information for [facility] resources for addiction to nursing to give to patient - Hydroxyzine q6h - On lexapro for anxiety; increased 08/28; patient states he believes this is helping #Oral Candidiasis -likely due to steroids and inhaler use -nystatin SSW QID started 08/27 #Indeterminate troponin, resolved - 0.046 -> 0.043 -> 0.022 - EKG t wave inversion lead 3, otherwise no acute ST changes #Hyperglycemia - likely 2/2 acute stress and steroids, monitor - Continue to increase daily levemir per ssi requirements - A1C 5.8 #Metabolic acidosis, resolved - Anion gap of 9 - Bicarb 18>14>16>18>21>24 - Suspect compensation from respiratory acidosis, will monitor, consider ABG if clinically indicated #Hypertension - HCTZ d/c'd - BID labetalol added 08/18 #Depression/Anxiety - No formal diagnosis, but transient episodes of SI - Will consult MHMR when medically cleared to eval prior to discharge. Need to provide with resources moving forward. - Started on lexapro, will continue to monitor and increase as able #Transaminitis, improved - Likely 2/2 COVID 19 PNA #KEYA, resolved #Seasonal Allergies -5mg claritin po BID IVF: SL DVT ppx: Lovenox 40mg BID Code Status: Full PCP: Frank Addendum - Attending - Attending Attestation Date/Time: 09/01/20 1431 I personally evaluated the patient and discussed the management with Dr. Rowe I agree with the History, Examination, Assessment and Plan documented above with any addition or exceptions noted below. Patient continues on HFNC 45 @44% continue to wean as tolerated.Patient aware of substance abuse and impact on his continued recovery.
[2020-09-01] MEDS: Mometasone 200 MCG/Formoterol 5 MCG 120 PUFF INHALER INH SCH ×2 (05:52→18:10)
--- NOTE | 2020-09-01 08:18 | PDOC.BPN ---
- Brief Progress Note Encounter Date: 09/01/20 This is a transition of care note. Patient has been slowly weaning from HFNC throughout the last 2 weeks. He remained in the IMCU for several days due to difficulty weaning the HFNC and quick desaturation with movement. He has been stable on HFC at this time and has made large improvements in weaning over the last several days. He is also day 20 today s/p +COVID and will be taken off of precautions. He has been treated with lovenox BID for anticoagulation. He has also been treated with steroids. He received 2 doses of convalescent plasma 08/14 and 08/24. He was on cefepime from 08/14-08/25. He has been on doxycycline since 08/14. He continues to use dulera and albuterol. At one point his CXR demonstrated subq emphysema and possible apical pneumothorax that a later cxr stated was not present. He has not had remdesivir, likely 2/2 transaminitis on admission. The patient has an extensive hx of anxiety. It was attempted to wean him from the 20mg TID of serax, but the patient had worsening respiratory function at that time due to anxiety. The patient was started on lexapro and this was in creased to 20mg which the patient reports is helping. He is also on hydroxyzine jossie q6h. The end goal will be to titrate his serax down and eventually wean him off of it. He was also noted to have oral candidiasis. Was started on nystatin ssw on 08/27. The patient continues to work with PT, will need continued conversations regarding d/c disposition. He discussed that his is trying to get him insurance at this time, CM to f/u with this. Patient made himself a DNI on 08/31, cardiac only resuscitation.
[2020-09-01] MEDS: Nystatin 500,000 UNITS/5 ML UDCUP SSW SCH ×4 (08:48→20:27)
[2020-09-01] MEDS: Oxazepam 10 MG CAP PO SCH ×3 (08:49→20:27)
[2020-09-01] MEDS: Labetalol 100 MG TAB PO SCH ×2 (08:49→20:35)
[2020-09-01] MEDS: Escitalopram Oxalate 10 mg Tablet PO SCH (08:49)
[2020-09-01] MEDS: Loratadine 10 MG TAB PO SCH ×2 (08:49→20:27)
[2020-09-01] MEDS: Famotidine/PF 20 mg/2ml Vial SLOW IVP SCH (08:50)
[2020-09-01] MEDS: Enoxaparin Sodium 40 MG/0.4 ML SYRINGE SC SCH ×2 (08:50→20:29)
[2020-09-01] MEDS: methylPREDNISolone Sod Succ 40 MG VIAL IVP SCH ×2 (08:50→20:28)
[2020-09-01] MEDS: Insulin Glargine 26 UNITS in Pre-Filled Syringe 1 EACH SC SCH (08:54)
--- NOTE | 2020-09-01 09:07 | RAD ---
CHEST ONE VIEW: INDICATIONS: History of COVID pneumonia. COMPARISON: 08/29/2020 FINDINGS: Bilateral pneumonia is stable. Mild cardiomegaly is stable. Small pleural effusions persist. No pneum othorax is evident. IMPRESSION: Stable examination. POS: BH
[2020-09-01] MEDS: Benzonatate 100 MG CAP PO PRN (17:20)
[2020-09-01] MEDS: HumaLOG 300 UNITS/3 ML VIAL SC PRN (17:21)
[2020-09-01] MEDS: Zolpidem Tartrate 5 MG TAB PO PRN (20:27)
[2020-09-02] MEDS: hydrOXYzine Pamoate 25 mg Capsule PO SCH ×4 (00:16→17:37)
[2020-09-02] MEDS: Albuterol 200 PUFF (6.7GM INHALER) INH SCH ×4 (00:17→18:54)
[2020-09-02] MEDS: Acetaminophen 325 MG TAB PO PRN ×4 (02:19→20:04)
[2020-09-02] MEDS: Benzonatate 100 MG CAP PO PRN ×2 (02:19→14:59)
[2020-09-02] MEDS: Mometasone 200 MCG/Formoterol 5 MCG 120 PUFF INHALER INH SCH ×2 (05:43→18:54)
--- NOTE | 2020-09-02 07:36 | PDOC.FM ---
- Subjective Subjective: Pt is anxious today. He states he is continuously getting better, but not being able to breathe with moving is very stressful for him. - Objective MAR Reviewed: Yes Vital Signs & Weight: Vital Signs (12 hours) Temp Pulse Resp BP Pulse Ox 09/02/20 05:30 98.7 F 78 20 130/80 100 09/02/20 00:00 85 20 95 09/01/20 20:30 98.7 F 90 20 154/92 H 99 Weight Admit Weight 90.174 kg Weight 90.174 kg Most Recent Monitor Data Heart Rate from ECG 88 NIBP 132/88 NIBP BP-Mean 102 Respiration from ECG 27 SpO2 85 I&O: 09/01/20 09/02/20 09/03/20 06:59 06:59 06:59 Intake Total 1910 1570 Output Total 801 600 Balance 1109 970 Result Diagrams: 08/31/20 10:36 08/31/20 10:36 Phys Exam - Physical Examination Constitutional: NAD HEENT: moist MMs, sclera anicteric Neck: supple decreased breath sounds Cardiovascular: RRR, no significant murmur Gastrointestinal: soft, no distention, positive bowel sounds Musculoskeletal: no edema, pulses present Neurological: normal sensation, moves all 4 limbs Lymphatic: no nodes Psychiatric: normal affect Skin: no rash, normal turgor Dx/Plan (1) COVID-19 Code(s): U07.1 - COVID-19 Status: Acute (2) Oral candidiasis Code(s): B37.0 - CANDIDAL STOMATITIS Status: Acute (3) Polysubstance (excluding opioids) dependence Code(s): F19.20 - OTHER PSYCHOACTIVE SUBSTANCE DEPENDENCE, UNCOMPLICATED Status: Acute (4) Depression Code(s): F32.9 - MAJOR DEPRESSIVE DISORDER, SINGLE EPISODE, UNSPECIFIED Status: Acute (5) KEYA (acute kidney injury) Code(s): N17.9 - ACUTE KIDNEY FAILURE, UNSPECIFIED Status: Acute (6) Acute respiratory failure with hypoxia Code(s): J96.01 - ACUTE RESPIRATORY FAILURE WITH HYPOXIA Status: Acute (7) Transaminitis Code(s): R74.01 - ELEVATION OF LEVELS OF LIVER TRANSAMINASE LEVELS Status: Acute - Plan Plan: 1. Acute hypoxic respiratory failure 2/2 COVID Pneumonia, improved - Symptom onset: 08/08 per , COVID + test on admission 08/13. positive ~2wks prior to admission - D/c methylprednisolone 40mg BID and started prednisone 60 mg QD. - Wean from HFNC as tolerated; patient has been satting upper 90s% on HFNC 40L @ 39%, will continue to try to wean as tolerated - S/P convalescent plasma 08/14 and 08/24 - Dulera and albuterol schd - Pulm consulted, d/c Doxy(08/27), apprec recs - D/C'd cefepime (08/14-08/25) - CXR 08/26 demonstrated R subcutaneous emphysema, f/u 08/28 demonstrates no pneumothorax - Patient tolerating po intake -patient is day 20 s/p +COVID test, can remove precautions at this time 2. Polysubstance Abuse - Admits to non-prescribed xanax use, multiple mg per day for past few years, as well as non-prescribed percocet use - Rx for Ambien, Soma, and tramadol from PCP - Patient had increased anxiety and WOB 08/19 after decreasing serax, increased back to 20mg TID -will decrease serax as lexapro is increased - provided information for [facility] resources for addiction to nursing to give to patient - Hydroxyzine q6h - On lexapro for anxiety; increased 08/28; patient states he believes this is helping 3. Oral Candidiasis -likely due to steroids and inhaler use -nystatin SSW QID started 08/27 4. Indeterminate troponin, resolved - 0.046 -> 0.043 -> 0.022 - EKG t wave inversion lead 3, otherwise no acute ST changes 5. Hyperglycemia - likely 2/2 acute stress and steroids, monitor - Continue to increase daily levemir per ssi requirements - A1C 5.8 6. Metabolic acidosis, resolved - Anion gap of 9 - Bicarb 18 >24 - Suspect compensation from respiratory acidosis, will monitor, consider ABG if clinically indicated 7. Hypertension - HCTZ d/c'd - BID labetalol added 08/18 8. Depression/Anxiety - No formal diagnosis, but transient episodes of SI - Will consult MHMR when medically cleared to eval prior to discharge. Need to provide with resources moving forward. - Started on lexapro, will continue to monitor and increase as able 9. Transaminitis, improved - Likely 2/2 COVID 19 PNA 10. KEYA, resolved 11. Seasonal Allergies -5mg claritin po BID Code Status: Full IVF: SL DVT ppx: Lovenox 40mg BID PCP: Frank Dispo: Work to decrease serax dosing. We will discontinue Methylpred and start on prednisone with taper. Will continue titration of high flow nasal cannula. Doxycycline discontinued. Addendum - Attending - Attending Attestation Date/Time: 09/02/20 4330 I personally evaluated the patient and discussed the management with Dr. Mayers. I agree with the History, Examination, Assessment and Plan documented above with any addition or exceptions noted below. d/c doxy. Taper benzos. will start to taper steroids. weaning HFNC. Still has several day until d/c.
[2020-09-02] MEDS: Loratadine 10 MG TAB PO SCH ×2 (08:53→20:04)
[2020-09-02] MEDS: Nystatin 500,000 UNITS/5 ML UDCUP SSW SCH ×4 (08:53→20:05)
[2020-09-02] MEDS: Oxazepam 10 MG CAP PO SCH ×3 (08:53→20:04)
[2020-09-02] MEDS: Escitalopram Oxalate 10 mg Tablet PO SCH (08:54)
[2020-09-02] MEDS: Enoxaparin Sodium 40 MG/0.4 ML SYRINGE SC SCH ×2 (08:54→20:03)
[2020-09-02] MEDS: Insulin Glargine 26 UNITS in Pre-Filled Syringe 1 EACH SC SCH (08:54)
[2020-09-02] MEDS: methylPREDNISolone Sod Succ 40 MG VIAL IVP SCH (08:55)
[2020-09-02] MEDS: Labetalol 100 MG TAB PO SCH ×2 (09:01→20:03)
--- NOTE | 2020-09-02 12:52 | PRG ---
DATE OF SERVICE: 09/02/2020 OBJECTIVE: VITAL SIGNS: Temperature 98, sats are 93 on flow rate of 40, 40% FiO2, blood pressure 150/84. GENERAL: Still weak. CHEST: No wheezing or crackles. CARDIAC: Normal S1 and S2. No gallops. ABDOMEN: No masses. ASSESSMENT AND PLAN: Garcia positive pneumonia, respiratory failure. X-ray still shows significant slowly tapered over several weeks. Once we are able to get himself down to low-flow O2, he may be able to be discharged home. Please call Pulmonary if needed. Job ID: [id number]
[2020-09-02] MEDS ORDERED: predniSONE 20 MG TAB PO SCH ×2 (19:00→21:00)
[2020-09-02] MEDS: Zolpidem Tartrate 5 MG TAB PO PRN (20:04)
[2020-09-03] MEDS: Albuterol 200 PUFF (6.7GM INHALER) INH SCH ×4 (01:00→18:59)
[2020-09-03] MEDS: hydrOXYzine Pamoate 25 mg Capsule PO SCH ×4 (01:36→17:19)
[2020-09-03] MEDS: Mometasone 200 MCG/Formoterol 5 MCG 120 PUFF INHALER INH SCH ×2 (07:36→18:59)
--- NOTE | 2020-09-03 07:49 | PDOC.FM ---
- Subjective Subjective: Pt was upset about decrease of Serax. We discussed it and he is very understanding. He slept well. He is doing well this morning. - Objective MAR Reviewed: Yes Vital Signs & Weight: Vital Signs (12 hours) Temp Pulse Resp BP Pulse Ox 09/03/20 06:00 99.2 F 85 18 139/82 98 09/02/20 20:00 98.6 F 94 19 148/81 H 94 L Weight Admit Weight 90.174 kg Weight 90.174 kg Most Recent Monitor Data Heart Rate from ECG 88 NIBP 132/88 NIBP BP-Mean 102 Respiration from ECG 27 SpO2 85 I&O: 09/02/20 09/03/20 09/04/20 06:59 06:59 06:59 Intake Total 1570 1460 Output Total 600 2325 Balance 970 -865 Result Diagrams: 09/03/20 08:09 09/03/20 08:09 Phys Exam - Physical Examination Constitutional: NAD HEENT: sclera anicteric Neck: no nodes, supple Slight end expiratory wheezing Cardiovascular: RRR Gastrointestinal: soft, non-tender, positive bowel sounds Musculoskeletal: no edema, pulses present Neurological: moves all 4 limbs Lymphatic: no nodes Deviation from normal: anxious affect, depressed mood Skin: no rash, normal turgor Dx/Plan (1) COVID-19 Code(s): U07.1 - COVID-19 Status: Acute (2) Oral candidiasis Code(s): B37.0 - CANDIDAL STOMATITIS Status: Acute (3) Polysubstance (excluding opioids) dependence Code(s): F19.20 - OTHER PSYCHOACTIVE SUBSTANCE DEPENDENCE, UNCOMPLICATED Status: Acute (4) Depression Code(s): F32.9 - MAJOR DEPRESSIVE DISORDER, SINGLE EPISODE, UNSPECIFIED Status: Acute (5) KEYA (acute kidney injury) Code(s): N17.9 - ACUTE KIDNEY FAILURE, UNSPECIFIED Status: Acute (6) Acute respiratory failure with hypoxia Code(s): J96.01 - ACUTE RESPIRATORY FAILURE WITH HYPOXIA Status: Acute (7) Transaminitis Code(s): R74.01 - ELEVATION OF LEVELS OF LIVER TRANSAMINASE LEVELS Status: Acute - Plan Plan: 1. Acute hypoxic respiratory failure 2/2 COVID Pneumonia, improved - Symptom onset: 08/08 per , COVID + test on admission 10/27. positive ~2wks prior to admission - D/c methylprednisolone 40mg BID and started prednisone 60 mg QD. - Wean from HFNC as tolerated; patient has been satting upper 90s% on HFNC 40L @ 39%, will continue to try to wean as tolerated - S/P convalescent plasma 08/14 and 08/24 - Dulera and albuterol schd - Pulm consulted, d/c Doxy(08/27), apprec recs - D/C'd cefepime (08/14-08/25) - CXR 08/26 demonstrated R subcutaneous emphysema, f/u 08/28 demonstrates no pneumothorax - Patient tolerating po intake -patient is day 20 s/p +COVID test, can remove precautions at this time 2. Polysubstance Abuse - Admits to non-prescribed xanax use, multiple mg per day for past few years, as well as non-prescribed percocet use - Rx for Ambien, Soma, and tramadol from PCP - Patient had increased anxiety and WOB 08/19 after decreasing serax, increased back to 20mg TID -will decrease serax as lexapro is increased - provided information for [facility] resources for addiction to nursing to give to patient - Hydroxyzine q6h - On lexapro for anxiety; increased 08/28; patient states he believes this is helping 3. Oral Candidiasis -likely due to steroids and inhaler use -nystatin SSW QID started 08/27 4. Indeterminate troponin, resolved - 0.046 -> 0.043 -> 0.022 - EKG t wave inversion lead 3, otherwise no acute ST changes 5. Hyperglycemia - likely 2/2 acute stress and steroids, monitor - Continue to increase daily levemir per ssi requirements - A1C 5.8 6. Metabolic acidosis, resolved - Anion gap of 9 - Bicarb 18 >24 - Suspect compensation from respiratory acidosis, will monitor, consider ABG if clinically indicated 7. Hypertension - HCTZ d/c'd - BID labetalol added 08/18 8. Depression/Anxiety - No formal diagnosis, but transient episodes of SI - Will consult MHMR when medically cleared to eval prior to discharge. Need to provide with resources moving forward. - Started on lexapro, will continue to monitor and increase as able 9. Transaminitis, improved - Likely 2/2 COVID 19 PNA 10. KEYA, resolved 11. Seasonal Allergies -5mg claritin po BID Code Status: Full IVF: SL DVT ppx: Lovenox 40mg BID PCP: Frank Dispo: Will increase Lexapro today and continue to work with PT/OT and titrate O2. Addendum - Attending - Attending Attestation Date/Time: 09/03/20 9938 I personally evaluated the patient and discussed the management with Dr. Mayers. I agree with the History, Examination, Assessment and Plan documented above with any addition or exceptions noted below. Continue PT/OT and down titrating HFNC. Adjusting anxiolytics.
[2020-09-03 08:42] LABS: #Eosinphils 0.1 thou/uL (0.0-0.7); #Lymphocytes 3.3 thou/uL (1.20-3.40); #Monocytes 1.1 thou/uL (0.11-0.59); #Neutrophils 14.3 thou/uL (1.40-6.50); %Basophils 0.1 % (0.0-1.0); %Eosinophils 0.5 % (0.0-10.0); %Lymphocytes 17.5 % (21.0-51.0); %Monocytes 5.9 % (0.0-10.0); %Neutrophils 75.9 % (42.0-75.0); Hemoglobin 13.7 g/dL (14.0-18.0); Mean Corpuscular HGB CONC 32.2 g/dL (32.0-36.0); Mean Corpuscular Hemoglobin 29.9 pg (27.0-31.0); Mean Corpuscular Volume 92.9 fL (78.0-98.0); Mean Platelet Volume 8.5 fL (7.4-10.4); Platelet Count 366 thou/uL (130-400); RBC Distribution Width 12.8 % (11.5-14.5); Red Blood Cell (RBC) Count 4.59 mill/uL (4.70-6.10); White Blood Cell (WBC) Count 18.8 thou/uL (4.8-10.8)
[2020-09-03 09:04] LABS: ALT (SGPT) 95 U/L (8-55); AST (SGOT) 24 U/L (5-34); Albumin 3.5 g/dL (3.5-5.0); Alkaline Phosphatase 100 U/L (40-110); Anion Gap 15 mmol/L (10-20); BUN (Urea Nitrogen) 21 mg/dL (8.4-25.7); Bilirubin, Total 0.5 mg/dL (0.2-1.2); Calc. Creatinine Clearance 152 mL/min (70-130); Calcium 9.3 mg/dL (7.8-10.44); Carbon Dioxide 25 mmol/L (22-29); Chloride 101 mmol/L (98-107); Estimated GFR-MDRD Greater than 90; Globulin 3.2 g/dL (2.4-3.5); Glucose 89 mg/dL (70-105); Potassium 4.4 mmol/L (3.5-5.1); Protein, Total 6.7 g/dL (6.0-8.3); Sodium 137 mmol/L (136-145)
[2020-09-03] MEDS: Insulin Glargine 26 UNITS in Pre-Filled Syringe 1 EACH SC SCH (09:18)
[2020-09-03] MEDS: Benzonatate 100 MG CAP PO PRN ×2 (09:18→16:00)
[2020-09-03] MEDS: Enoxaparin Sodium 40 MG/0.4 ML SYRINGE SC SCH ×2 (09:18→21:28)
[2020-09-03] MEDS: predniSONE 20 MG TAB PO SCH (09:18)
[2020-09-03] MEDS: Oxazepam 10 MG CAP PO SCH ×3 (09:18→21:28)
[2020-09-03] MEDS: Labetalol 100 MG TAB PO SCH ×2 (09:19→21:28)
[2020-09-03] MEDS: Nystatin 500,000 UNITS/5 ML UDCUP SSW SCH ×4 (09:20→21:29)
[2020-09-03] MEDS: Loratadine 10 MG TAB PO SCH ×2 (09:20→21:28)
[2020-09-03] MEDS ORDERED: Escitalopram Oxalate 10 mg Tablet PO SCH (10:30)
[2020-09-03] MEDS: Escitalopram Oxalate 10 mg Tablet PO SCH (12:28)
[2020-09-03] MEDS: HumaLOG 300 UNITS/3 ML VIAL SC PRN (12:29)
[2020-09-03] MEDS: Zolpidem Tartrate 5 MG TAB PO PRN (21:40)
[2020-09-04] MEDS: hydrOXYzine Pamoate 25 mg Capsule PO SCH ×4 (01:11→17:21)
[2020-09-04] MEDS: Albuterol 200 PUFF (6.7GM INHALER) INH SCH ×4 (01:12→18:21)
[2020-09-04] MEDS: Mometasone 200 MCG/Formoterol 5 MCG 120 PUFF INHALER INH SCH ×2 (05:36→18:21)
--- NOTE | 2020-09-04 07:54 | PDOC.FM ---
- Subjective Subjective: He is doing better today. He was able to get up and move around with PT yesterday. He says he is breathing better. - Objective MAR Reviewed: Yes Vital Signs & Weight: Vital Signs (12 hours) Temp Pulse Resp BP Pulse Ox 09/04/20 07:43 98.9 F 88 16 126/76 98 09/03/20 21:28 90 09/03/20 20:13 98.3 F 90 18 154/93 H 97 09/03/20 20:00 97 Weight Admit Weight 90.174 kg Weight 90.174 kg Most Recent Monitor Data Heart Rate from ECG 88 NIBP 132/88 NIBP BP-Mean 102 Respiration from ECG 27 SpO2 85 I&O: 09/03/20 09/04/20 09/05/20 06:59 06:59 06:59 Intake Total 1460 1425 Output Total 2325 650 Balance -865 775 Result Diagrams: 09/04/20 08:08 09/04/20 08:08 Phys Exam - Physical Examination Constitutional: NAD HEENT: moist MMs, sclera anicteric Neck: supple Respiratory: no wheezing, no rales, no rhonchi, clear to auscultation bilateral Cardiovascular: RRR, no significant murmur Gastrointestinal: soft, non-tender, positive bowel sounds Musculoskeletal: no edema, pulses present Neurological: moves all 4 limbs Lymphatic: no nodes Psychiatric: normal affect Skin: no rash, normal turgor Dx/Plan (1) COVID-19 Code(s): U07.1 - COVID-19 Status: Acute (2) Oral candidiasis Code(s): B37.0 - CANDIDAL STOMATITIS Status: Acute (3) Polysubstance (excluding opioids) dependence Code(s): F19.20 - OTHER PSYCHOACTIVE SUBSTANCE DEPENDENCE, UNCOMPLICATED Status: Acute (4) Depression Code(s): F32.9 - MAJOR DEPRESSIVE DISORDER, SINGLE EPISODE, UNSPECIFIED Status: Acute (5) KEYA (acute kidney injury) Code(s): N17.9 - ACUTE KIDNEY FAILURE, UNSPECIFIED Status: Acute (6) Acute respiratory failure with hypoxia Code(s): J96.01 - ACUTE RESPIRATORY FAILURE WITH HYPOXIA Status: Acute (7) Transaminitis Code(s): R74.01 - ELEVATION OF LEVELS OF LIVER TRANSAMINASE LEVELS Status: Acute - Plan Plan: Patient is a 54 year old male with a history of anxiety and depression who presented to the ED with complains of SOB and cough x 7 days that acutely worsened this am. 1. Acute hypoxic respiratory failure 2/2 COVID Pneumonia, improved - Symptom onset: 08/08 per , COVID + test on admission 08/13. positive ~2wks prior to admission - D/c methylprednisolone 40mg BID and started prednisone 60 mg QD. - Wean from HFNC as tolerated; patient has been satting upper 90s% on HFNC 40L @ 39%, will continue to try to wean as tolerated - S/P convalescent plasma 08/14 and 08/24 - Dulera and albuterol schd - Pulm consulted, d/c Doxy(08/27), apprec recs - D/C'd cefepime (08/14-08/25) - CXR 08/26 demonstrated R subcutaneous emphysema, f/u 08/28 demonstrates no pneumothorax - Patient tolerating po intake - patient is day s/p +COVID test, precautions removed 2. Polysubstance Abuse - Admits to non-prescribed xanax use, multiple mg per day for past few years, as well as non-prescribed percocet use - Rx for Ambien, Soma, and tramadol from PCP - Patient had increased anxiety and WOB 08/19 after decreasing serax, increased back to 20mg TID -will decrease serax as lexapro is increased - provided information for [facility] for addiction to nursing to give to patient - Hydroxyzine q6h - On lexapro for anxiety; increased 08/28; patient states he believes this is helping 3. Oral Candidiasis -likely due to steroids and inhaler use -nystatin SSW QID started 08/27 4. Indeterminate troponin, resolved - 0.046 -> 0.043 -> 0.022 - EKG t wave inversion lead 3, otherwise no acute ST changes 5. Hyperglycemia - likely 2/2 acute stress and steroids, monitor - Continue to increase daily levemir per ssi requirements - A1C 5.8 6. Metabolic acidosis, resolved - Anion gap of 9 - Bicarb 18 > 24 - Suspect compensation from respiratory acidosis, will monitor, consider ABG if clinically indicated 7. Hypertension - HCTZ d/c'd - BID labetalol added 08/18 8. Depression/Anxiety - No formal diagnosis, but transient episodes of SI - Will consult MHMR when medically cleared to eval prior to discharge. Need to provide with resources moving forward. - Started on lexapro, will continue to monitor and increase as able 9. Transaminitis, improved - Likely 2/2 COVID 19 PNA 10. KEYA, resolved 11. Seasonal Allergies -5mg claritin po BID Code Status: Full IVF: SL DVT ppx: Lovenox 40mg BID PCP: Frank Dispo: Will titrate O2 and encouraged to work with PT. Addendum - Attending - Attending Attestation Date/Time: 09/04/20 8105 I personally evaluated the patient and discussed the management with Dr. Mayers I agree with the History, Examination, Assessment and Plan documented above with any addition or exceptions noted below.
--- NOTE | 2020-09-04 07:56 | RAD ---
EXAM: Single view of the chest HISTORY: Covid pneumonia COMPARISON: 09/01/2020 FINDINGS: Single view of the chest shows a mildly enlarged cardiomediastinal silhouette. Scattered st able multifocal infiltrates are seen in the lungs. No acute osseous abnormality. IMPRESSION: Multifocal infiltrates
[2020-09-04 08:28] LABS: #Eosinphils 0.2 thou/uL (0.0-0.7); #Lymphocytes 2.5 thou/uL (1.20-3.40); #Neutrophils 9.6 thou/uL (1.40-6.50); %Eosinophils 1.2 % (0.0-10.0); %Monocytes 7.2 % (0.0-10.0); %Neutrophils 72.5 % (42.0-75.0); Hemoglobin 14.9 g/dL (14.0-18.0); Mean Corpuscular HGB CONC 35.1 g/dL (32.0-36.0); Mean Corpuscular Hemoglobin 32.7 pg (27.0-31.0); Mean Platelet Volume 8.4 fL (7.4-10.4); Platelet Count 325 thou/uL (130-400); Red Blood Cell (RBC) Count 4.55 mill/uL (4.70-6.10); White Blood Cell (WBC) Count 13.2 thou/uL (4.8-10.8)
[2020-09-04] MEDS: Escitalopram Oxalate 20 mg Tablet PO SCH (08:40)
[2020-09-04] MEDS: predniSONE 20 MG TAB PO SCH (08:40)
[2020-09-04] MEDS: Oxazepam 10 MG CAP PO SCH ×3 (08:41→21:04)
[2020-09-04] MEDS: Enoxaparin Sodium 40 MG/0.4 ML SYRINGE SC SCH ×2 (08:41→21:04)
[2020-09-04] MEDS: Labetalol 100 MG TAB PO SCH ×2 (08:41→21:05)
[2020-09-04] MEDS: Loratadine 10 MG TAB PO SCH ×2 (08:41→21:04)
[2020-09-04] MEDS: Nystatin 500,000 UNITS/5 ML UDCUP SSW SCH ×4 (08:42→21:04)
[2020-09-04 08:48] LABS: ALT (SGPT) 88 U/L (8-55); AST (SGOT) 26 U/L (5-34); Albumin 3.6 g/dL (3.5-5.0); Alkaline Phosphatase 85 U/L (40-110); Anion Gap 15 mmol/L (10-20); BUN (Urea Nitrogen) 24 mg/dL (8.4-25.7); Bilirubin, Total 0.6 mg/dL (0.2-1.2); Calc. Creatinine Clearance 142 mL/min (70-130); Calcium 9.1 mg/dL (7.8-10.44); Carbon Dioxide 25 mmol/L (22-29); Chloride 102 mmol/L (98-107); Estimated GFR-MDRD Greater than 90; Globulin 2.9 g/dL (2.4-3.5); Glucose 124 mg/dL (70-105); Potassium 3.9 mmol/L (3.5-5.1); Protein, Total 6.5 g/dL (6.0-8.3); Sodium 138 mmol/L (136-145)
[2020-09-04] MEDS: Insulin Glargine 26 UNITS in Pre-Filled Syringe 1 EACH SC SCH (08:52)
[2020-09-04] MEDS: Acetaminophen 325 MG TAB PO PRN ×2 (08:52→21:04)
[2020-09-04] MEDS: HumaLOG 300 UNITS/3 ML VIAL SC PRN (15:41)
[2020-09-04] MEDS: Zolpidem Tartrate 5 MG TAB PO PRN (21:03)
[2020-09-04] MEDS: Benzonatate 100 MG CAP PO PRN (21:04)
[2020-09-05] MEDS: hydrOXYzine Pamoate 25 mg Capsule PO SCH ×4 (01:30→17:22)
[2020-09-05] MEDS: Albuterol 200 PUFF (6.7GM INHALER) INH SCH ×4 (01:31→19:00)
[2020-09-05 05:28] LABS: #Eosinphils 0.3 thou/uL (0.0-0.7); #Lymphocytes 3.4 thou/uL (1.20-3.40); #Monocytes 1.1 thou/uL (0.11-0.59); %Basophils 0.3 % (0.0-1.0); %Eosinophils 1.9 % (0.0-10.0); %Lymphocytes 20.1 % (21.0-51.0); %Monocytes 6.6 % (0.0-10.0); %Neutrophils 71.1 % (42.0-75.0); Hemoglobin 13.9 g/dL (14.0-18.0); Mean Corpuscular HGB CONC 34.2 g/dL (32.0-36.0); Mean Corpuscular Hemoglobin 31.6 pg (27.0-31.0); Mean Corpuscular Volume 92.6 fL (78.0-98.0); Mean Platelet Volume 8.1 fL (7.4-10.4); Platelet Count 319 thou/uL (130-400); Red Blood Cell (RBC) Count 4.41 mill/uL (4.70-6.10); White Blood Cell (WBC) Count 16.8 thou/uL (4.8-10.8)
[2020-09-05 05:45] LABS: ALT (SGPT) 101 U/L (8-55); AST (SGOT) 29 U/L (5-34); Albumin 3.4 g/dL (3.5-5.0); Alkaline Phosphatase 87 U/L (40-110); Anion Gap 12 mmol/L (10-20); BUN (Urea Nitrogen) 25 mg/dL (8.4-25.7); Bilirubin, Total 0.5 mg/dL (0.2-1.2); Calc. Creatinine Clearance 137 mL/min (70-130); Calcium 8.7 mg/dL (7.8-10.44); Carbon Dioxide 28 mmol/L (22-29); Chloride 101 mmol/L (98-107); Estimated GFR-MDRD Greater than 90; Globulin 2.9 g/dL (2.4-3.5); Glucose 107 mg/dL (70-105); Potassium 3.8 mmol/L (3.5-5.1); Protein, Total 6.3 g/dL (6.0-8.3); Sodium 137 mmol/L (136-145)
--- NOTE | 2020-09-05 07:14 | PDOC.FM ---
- Subjective Subjective: He says he is doing well. They are still weaning him down on the high flow. He did not sleep well last night. He is eating well. - Objective MAR Reviewed: Yes Vital Signs & Weight: Vital Signs (12 hours) Temp Pulse Resp BP Pulse Ox 09/04/20 21:05 88 09/04/20 20:00 97.8 F 92 18 132/90 96 Weight Admit Weight 90.174 kg Weight 90.174 kg Most Recent Monitor Data Heart Rate from ECG 88 NIBP 132/88 NIBP BP-Mean 102 Respiration from ECG 27 SpO2 85 I&O: 09/04/20 09/05/20 09/06/20 06:59 06:59 06:59 Intake Total 1425 1000 Output Total 650 950 Balance 775 50 Result Diagrams: 09/05/20 05:12 09/05/20 05:12 Phys Exam - Physical Examination Constitutional: NAD HEENT: moist MMs, sclera anicteric Neck: no nodes, supple Respiratory: no wheezing, no rales, no rhonchi, clear to auscultation bilateral Cardiovascular: RRR Gastrointestinal: soft, non-tender, positive bowel sounds Musculoskeletal: no edema, pulses present Neurological: moves all 4 limbs Lymphatic: no nodes Psychiatric: normal affect Skin: normal turgor Dx/Plan (1) COVID-19 Code(s): U07.1 - COVID-19 Status: Acute (2) Oral candidiasis Code(s): B37.0 - CANDIDAL STOMATITIS Status: Acute (3) Polysubstance (excluding opioids) dependence Code(s): F19.20 - OTHER PSYCHOACTIVE SUBSTANCE DEPENDENCE, UNCOMPLICATED Status: Acute (4) Depression Code(s): F32.9 - MAJOR DEPRESSIVE DISORDER, SINGLE EPISODE, UNSPECIFIED Status: Acute (5) KEYA (acute kidney injury) Code(s): N17.9 - ACUTE KIDNEY FAILURE, UNSPECIFIED Status: Acute (6) Acute respiratory failure with hypoxia Code(s): J96.01 - ACUTE RESPIRATORY FAILURE WITH HYPOXIA Status: Acute (7) Transaminitis Code(s): R74.01 - ELEVATION OF LEVELS OF LIVER TRANSAMINASE LEVELS Status: Acute - Plan Plan: Patient is a 54 year old male with a history of anxiety and depression who presented to the ED with complains of SOB and cough x 7 days that acutely worsened this am. 1. Acute hypoxic respiratory failure 2/2 COVID Pneumonia, improved - Symptom onset: 08/08 per , COVID + test on admission 08/13. positive ~2wks prior to admission - D/c methylprednisolone 40mg BID and started prednisone 60 mg QD. - Wean from HFNC as tolerated; patient has been satting upper 90s% on HFNC 40L @ 39%, will continue to try to wean as tolerated - S/P convalescent plasma 08/14 and 08/24 - Dulera and albuterol schd - Pulm consulted, d/c Doxy(08/27), apprec recs - D/C'd cefepime (08/14-08/25) - CXR 08/26 demonstrated R subcutaneous emphysema, f/u 08/28 demonstrates no pneumothorax - Patient tolerating po intake - patient is day 22 s/p +COVID test, precautions removed 2. Polysubstance Abuse - Admits to non-prescribed xanax use, multiple mg per day for past few years, as well as non-prescribed percocet use - Rx for Ambien, Soma, and tramadol from PCP - Patient had increased anxiety and WOB 08/19 after decreasing serax, decreased serax today 09/04 10 mg BID -will decrease serax as lexapro is increased - provided information for [facility] for addiction to nursing to give to patient - Hydroxyzine q6h - On lexapro for anxiety; increased 08/28 & 09/02; patient states he believes this is helping - Started Buspar 09/04 3. Oral Candidiasis -likely due to steroids and inhaler use -nystatin SSW QID started 08/27 4. Indeterminate troponin, resolved - 0.046 -> 0.043 -> 0.022 - EKG t wave inversion lead 3, otherwise no acute ST changes 5. Hyperglycemia - likely 2/2 acute stress and steroids, monitor - Continue to increase daily levemir per ssi requirements - A1C 5.8 6. Metabolic acidosis, resolved - Anion gap of 9 - Bicarb 18 > 24 - Suspect compensation from respiratory acidosis, will monitor, consider ABG if clinically indicated 7. Hypertension - HCTZ d/c'd - BID labetalol added 08/18 8. Depression/Anxiety - No formal diagnosis, but transient episodes of SI - Will consult MHMR when medically cleared to eval prior to discharge. Need to provide with resources moving forward. - Started on lexapro, will continue to monitor and increase as able 9. Transaminitis, improved - Likely 2/2 COVID 19 PNA 10. KEYA, resolved 11. Seasonal Allergies -5mg claritin po BID Code Status: Full IVF: SL Diet: Regular DVT ppx: Lovenox 40mg BID PCP: Frank Dispo: Will titrate O2 and encouraged to work with PT. Serax decreased to BID. Buspar started. Addendum - Attending - Attending Attestation Date/Time: 09/05/20 121 I personally evaluated the patient and discussed the management with Dr. Mayers. I agree with the History, Examination, Assessment and Plan documented above with any addition or exceptions noted below. Continue to wean HFNC. once on regular NC can d/c home. Uninsured so placement not an option.
[2020-09-05] MEDS: Nystatin 500,000 UNITS/5 ML UDCUP SSW SCH ×4 (09:27→20:55)
[2020-09-05] MEDS: Loratadine 10 MG TAB PO SCH ×2 (09:28→20:54)
[2020-09-05] MEDS: busPIRone HCl 10 MG TAB PO SCH ×2 (09:29→20:54)
[2020-09-05] MEDS: Escitalopram Oxalate 20 mg Tablet PO SCH (09:29)
[2020-09-05] MEDS: Mometasone 200 MCG/Formoterol 5 MCG 120 PUFF INHALER INH SCH ×2 (09:30→18:35)
[2020-09-05] MEDS: Enoxaparin Sodium 40 MG/0.4 ML SYRINGE SC SCH ×2 (09:30→20:55)
[2020-09-05] MEDS: Oxazepam 10 MG CAP PO SCH ×2 (09:33→20:54)
[2020-09-05] MEDS: Labetalol 100 MG TAB PO SCH ×2 (11:35→21:51)
[2020-09-05] MEDS: predniSONE 20 MG TAB PO SCH (11:35)
[2020-09-05] MEDS: Insulin Glargine 26 UNITS in Pre-Filled Syringe 1 EACH SC SCH (11:35)
[2020-09-05] MEDS: Acetaminophen 325 MG TAB PO PRN ×2 (17:22→20:55)
[2020-09-05] MEDS: Benzonatate 100 MG CAP PO PRN ×2 (17:22→20:54)
[2020-09-05] MEDS: Zolpidem Tartrate 5 MG TAB PO PRN (20:54)
[2020-09-06] MEDS: hydrOXYzine Pamoate 25 mg Capsule PO SCH ×4 (01:14→17:34)
[2020-09-06] MEDS: Albuterol 200 PUFF (6.7GM INHALER) INH SCH ×4 (01:24→19:51)
--- NOTE | 2020-09-06 07:10 | PDOC.FM ---
- Subjective Subjective: Pt says he feels good this morning. Decreased his Serax yesterday and he said he started feeling bad yesterday around 5 pm. He would like the dose added back. He has been eating well. He worked with PT yesterday. - Objective MAR Reviewed: Yes Vital Signs & Weight: Vital Signs (12 hours) Temp Pulse Resp BP Pulse Ox 09/05/20 21:51 80 09/05/20 20:08 98.5 F 80 18 121/77 99 Weight Admit Weight 90.174 kg Weight 90.174 kg Most Recent Monitor Data Heart Rate from ECG 88 NIBP 132/88 NIBP BP-Mean 102 Respiration from ECG 27 SpO2 85 I&O: 09/05/20 09/06/20 09/07/20 06:59 06:59 06:59 Intake Total 1000 1600 Output Total 950 Balance 50 1600 Result Diagrams: 09/06/20 07:12 09/06/20 07:12 Phys Exam - Physical Examination Constitutional: NAD HEENT: moist MMs, sclera anicteric Neck: no nodes, supple Respiratory: no wheezing, no rales, no rhonchi, clear to auscultation bilateral Cardiovascular: RRR Gastrointestinal: soft, non-tender Musculoskeletal: no edema, pulses present Neurological: moves all 4 limbs Lymphatic: no nodes Deviation from normal: anxious affect Skin: normal turgor Dx/Plan (1) COVID-19 Code(s): U07.1 - COVID-19 Status: Acute (2) Oral candidiasis Code(s): B37.0 - CANDIDAL STOMATITIS Status: Acute (3) Polysubstance (excluding opioids) dependence Code(s): F19.20 - OTHER PSYCHOACTIVE SUBSTANCE DEPENDENCE, UNCOMPLICATED Status: Acute (4) Depression Code(s): F32.9 - MAJOR DEPRESSIVE DISORDER, SINGLE EPISODE, UNSPECIFIED Status: Acute (5) KEYA (acute kidney injury) Code(s): N17.9 - ACUTE KIDNEY FAILURE, UNSPECIFIED Status: Acute (6) Acute respiratory failure with hypoxia Code(s): J96.01 - ACUTE RESPIRATORY FAILURE WITH HYPOXIA Status: Acute (7) Transaminitis Code(s): R74.01 - ELEVATION OF LEVELS OF LIVER TRANSAMINASE LEVELS Status: Acute - Plan Plan: Patient is a 54 year old male with a history of anxiety and depression who presented to the ED with complains of SOB and cough x 7 days that acutely worsened this am. 1. Acute hypoxic respiratory failure 2/2 COVID Pneumonia, improved - Symptom onset: 08/08 per , COVID + test on admission 08/13. positive ~2wks prior to admission - D/c methylprednisolone 40mg BID and started prednisone 60 mg QD. - Wean from HFNC as tolerated; patient has been satting upper 90s% on HFNC 40L @ 39%, will continue to try to wean as tolerated - S/P convalescent plasma 08/14 and 08/24 - Dulera and albuterol schd - Pulm consulted, d/c Doxy(08/27), apprec recs - D/C'd cefepime (08/14-08/25) - CXR 08/26 demonstrated R subcutaneous emphysema, f/u 08/28 demonstrates no pneumothorax - Patient tolerating po intake - patient is day 22 s/p +COVID test, precautions removed 2. Polysubstance Abuse - Admits to non-prescribed xanax use, multiple mg per day for past few years, as well as non-prescribed percocet use - Rx for Ambien, Soma, and tramadol from PCP - Patient had increased anxiety and WOB 08/19 after decreasing serax, decreased serax today 09/04 10 mg BID -will decrease serax as lexapro is increased - provided information for [facility] for addiction to nursing to give to patient - Hydroxyzine q6h - On lexapro for anxiety; increased 08/28 & 09/02; patient states he believes this is helping - Started Buspar 09/04 3. Oral Candidiasis -likely due to steroids and inhaler use -nystatin SSW QID started 08/27 4. Indeterminate troponin, resolved - 0.046 -> 0.043 -> 0.022 - EKG t wave inversion lead 3, otherwise no acute ST changes 5. Hyperglycemia - likely 2/2 acute stress and steroids, monitor - Continue to increase daily levemir per ssi requirements - A1C 5.8 6. Metabolic acidosis, resolved - Anion gap of 9 - Bicarb 18 > 24 - Suspect compensation from respiratory acidosis, will monitor, consider ABG if clinically indicated 7. Hypertension - HCTZ d/c'd - BID labetalol added 08/18 8. Depression/Anxiety - No formal diagnosis, but transient episodes of SI - Will consult MHMR when medically cleared to eval prior to discharge. Need to provide with resources moving forward. - Started on lexapro, will continue to monitor and increase as able 9. Transaminitis, improved - Likely 2/2 COVID 19 PNA 10. KEYA, resolved 11. Seasonal Allergies -5mg claritin po BID Code Status: Full IVF: SL Diet: Regular DVT ppx: Lovenox 40mg BID PCP: Frank Dispo: Increased Buspar today. Will contact CM to see about setting him up for rehab. Addendum - Attending - Attending Attestation Date/Time: 09/06/20 3264 I personally evaluated the patient and discussed the management with Dr. Mayers. I agree with the History, Examination, Assessment and Plan documented above with any addition or exceptions noted below. off HFNC but requires max assist to ambulate. Will need to rehab in hospital over the weekend. Placement not an option due to no insurance.
[2020-09-06] MEDS: Mometasone 200 MCG/Formoterol 5 MCG 120 PUFF INHALER INH SCH ×2 (07:24→17:34)
[2020-09-06 08:01] LABS: #Basophils 0.1 thou/uL (0.0-0.2); #Eosinphils 0.3 thou/uL (0.0-0.7); #Lymphocytes 2.9 thou/uL (1.20-3.40); #Monocytes 1.2 thou/uL (0.11-0.59); #Neutrophils 12.5 thou/uL (1.40-6.50); %Basophils 0.4 % (0.0-1.0); %Lymphocytes 16.8 % (21.0-51.0); %Neutrophils 73.9 % (42.0-75.0); Hemoglobin 14.3 g/dL (14.0-18.0); Mean Corpuscular HGB CONC 34.1 g/dL (32.0-36.0); Mean Corpuscular Hemoglobin 31.4 pg (27.0-31.0); Mean Corpuscular Volume 92.3 fL (78.0-98.0); Mean Platelet Volume 8.3 fL (7.4-10.4); Platelet Count 326 thou/uL (130-400); RBC Distribution Width 13.1 % (11.5-14.5); Red Blood Cell (RBC) Count 4.54 mill/uL (4.70-6.10)
[2020-09-06] MEDS: predniSONE 20 MG TAB PO SCH (08:06)
[2020-09-06] MEDS: Loratadine 10 MG TAB PO SCH ×2 (08:06→21:52)
[2020-09-06] MEDS: Allopurinol 100 MG TAB PO SCH (08:06)
[2020-09-06] MEDS: Escitalopram Oxalate 20 mg Tablet PO SCH (08:07)
[2020-09-06] MEDS: Oxazepam 10 MG CAP PO SCH ×2 (08:07→21:53)
[2020-09-06] MEDS: Labetalol 100 MG TAB PO SCH ×2 (08:08→21:52)
[2020-09-06] MEDS: Enoxaparin Sodium 40 MG/0.4 ML SYRINGE SC SCH ×2 (08:08→21:51)
[2020-09-06] MEDS: Nystatin 500,000 UNITS/5 ML UDCUP SSW SCH ×4 (08:09→21:52)
[2020-09-06 08:14] LABS: ALT (SGPT) 124 U/L (8-55); AST (SGOT) 32 U/L (5-34); Albumin 3.5 g/dL (3.5-5.0); Alkaline Phosphatase 96 U/L (40-110); Anion Gap 13 mmol/L (10-20); BUN (Urea Nitrogen) 25 mg/dL (8.4-25.7); Bilirubin, Total 0.4 mg/dL (0.2-1.2); Calc. Creatinine Clearance 150 mL/min (70-130); Carbon Dioxide 27 mmol/L (22-29); Chloride 101 mmol/L (98-107); Estimated GFR-MDRD Greater than 90; Globulin 2.9 g/dL (2.4-3.5); Glucose 103 mg/dL (70-105); Potassium 3.9 mmol/L (3.5-5.1); Protein, Total 6.4 g/dL (6.0-8.3); Sodium 137 mmol/L (136-145)
[2020-09-06] MEDS: busPIRone HCl 10 MG TAB PO SCH ×2 (09:50→21:51)
[2020-09-06] MEDS: Insulin Glargine 26 UNITS in Pre-Filled Syringe 1 EACH SC SCH (09:51)
[2020-09-06] MEDS: Acetaminophen 325 MG TAB PO PRN (15:29)
[2020-09-06] MEDS: Benzonatate 100 MG CAP PO PRN (15:29)
[2020-09-06] MEDS: HumaLOG 300 UNITS/3 ML VIAL SC PRN (17:35)
[2020-09-06] MEDS: Zolpidem Tartrate 5 MG TAB PO PRN (21:54)
[2020-09-07] MEDS: Albuterol 200 PUFF (6.7GM INHALER) INH SCH ×4 (01:23→18:46)
[2020-09-07] MEDS: hydrOXYzine Pamoate 25 mg Capsule PO SCH ×5 (01:23→18:15)
--- NOTE | 2020-09-07 05:48 | PDOC.FM ---
- Subjective Subjective: Pt is awake this morning. He says he slept well. He skipped his dose of Hydroxyzine last night. He was off oxygen for a little bit, but he started getting short of breath. - Objective MAR Reviewed: Yes Vital Signs & Weight: Vital Signs (12 hours) Temp Pulse Resp BP Pulse Ox 09/07/20 05:44 98.6 F 92 20 127/77 100 09/07/20 00:00 76 20 117/61 97 09/06/20 20:00 98.9 F 86 20 138/87 86 L Weight Admit Weight 90.174 kg Weight 90.174 kg Most Recent Monitor Data Heart Rate from ECG 88 NIBP 132/88 NIBP BP-Mean 102 Respiration from ECG 27 SpO2 85 I&O: 09/05/20 09/06/20 09/07/20 06:59 06:59 06:59 Intake Total 1000 1600 1200 Output Total 950 880 Balance 50 1600 320 Result Diagrams: 09/07/20 07:05 09/06/20 07:12 Phys Exam - Physical Examination Constitutional: NAD HEENT: moist MMs, sclera anicteric Neck: no nodes, supple Respiratory: no wheezing, no rales, no rhonchi, clear to auscultation bilateral Cardiovascular: RRR, no significant murmur Gastrointestinal: soft, non-tender, positive bowel sounds Musculoskeletal: no edema, pulses present Neurological: moves all 4 limbs Lymphatic: no nodes Psychiatric: normal affect Skin: no rash, normal turgor Dx/Plan (1) COVID-19 Code(s): U07.1 - COVID-19 Status: Acute (2) Oral candidiasis Code(s): B37.0 - CANDIDAL STOMATITIS Status: Acute (3) Polysubstance (excluding opioids) dependence Code(s): F19.20 - OTHER PSYCHOACTIVE SUBSTANCE DEPENDENCE, UNCOMPLICATED Status: Acute (4) Depression Code(s): F32.9 - MAJOR DEPRESSIVE DISORDER, SINGLE EPISODE, UNSPECIFIED Status: Acute (5) KEYA (acute kidney injury) Code(s): N17.9 - ACUTE KIDNEY FAILURE, UNSPECIFIED Status: Acute (6) Acute respiratory failure with hypoxia Code(s): J96.01 - ACUTE RESPIRATORY FAILURE WITH HYPOXIA Status: Acute (7) Transaminitis Code(s): R74.01 - ELEVATION OF LEVELS OF LIVER TRANSAMINASE LEVELS Status: Acute - Plan Plan: Patient is a 54 year old male with a history of anxiety and depression who presented to the ED with complains of SOB and cough x 7 days that acutely worsened this am. 1. Acute hypoxic respiratory failure 2/2 COVID Pneumonia, improved - Symptom onset: 08/08 per , COVID + test on admission 08/13. positive ~2wks prior to admission - D/c methylprednisolone 40mg BID and started prednisone 60 mg QD, lowering to 40 mg on 09/07 - Wean from HFNC as tolerated; patient has been satting upper 90s% on HFNC 40L @ 39%, will continue to try to wean as tolerated - S/P convalescent plasma 08/14 and 08/24 - Dulera and albuterol schd - Pulm consulted, d/c Doxy(08/27), apprec recs - D/C'd cefepime (08/14-08/25) - CXR 08/26 demonstrated R subcutaneous emphysema, f/u demonstrates no pneumothorax - Patient tolerating po intake - patient is s/p +COVID test, precautions removed 2. Polysubstance Abuse - Admits to non-prescribed xanax use, multiple mg per day for past few years, as well as non-prescribed percocet use - Rx for Ambien, Soma, and tramadol from PCP - Patient had increased anxiety and WOB 08/19 after decreasing serax, decreased serax 09/04 10 mg BID, decreased on 09/07 to 5 mg BID -will decrease serax as lexapro is increased - provided information for [facility] for addiction to nursing to give to patient - Hydroxyzine q6h, increased dosage 09/07 - On lexapro for anxiety; increased 08/28 & 09/02; patient states he believes this is helping - Started Buspar 09/04, increasing daily to 30 mg BID 3. Oral Candidiasis -likely due to steroids and inhaler use -nystatin SSW QID started 08/27 4. Indeterminate troponin, resolved - 0.046 -> 0.043 -> 0.022 - EKG t wave inversion lead 3, otherwise no acute ST changes 5. Hyperglycemia - likely 2/2 acute stress and steroids, monitor - Continue to increase daily levemir per ssi requirements - A1C 5.8 6. Metabolic acidosis, resolved - Anion gap of 9 - Bicarb 18 > 24 - Suspect compensation from respiratory acidosis, will monitor, consider ABG if clinically indicated 7. Hypertension - HCTZ d/c'd - BID labetalol added 08/18 8. Depression/Anxiety - No formal diagnosis, but transient episodes of SI - Will consult MHMR when medically cleared to eval prior to discharge. Need to provide with resources moving forward. - Started on lexapro, will continue to monitor and increase as able 9. Transaminitis, improved - Likely 2/2 COVID 19 PNA 10. KEYA, resolved 11. Seasonal Allergies -5mg claritin po BID Code Status: Full IVF: SL Diet: Regular DVT ppx: Lovenox 40mg BID PCP: Frank Dispo: Increased Buspar and hydroxyzine. Lowered dosage of prednisone. Will consider switching Serax for further taper. Addendum - Attending - Attending Attestation Date/Time: 09/07/20 1064 I personally evaluated the patient and discussed the management with Dr. Mayers. I agree with the History, Examination, Assessment and Plan documented above with any addition or exceptions noted below. Medications are being adjusted. Weaning O2. Continue supportive care.
[2020-09-07] MEDS ORDERED: Oxazepam 10 MG CAP PO SCH ×3 (05:49→09:00)
[2020-09-07] MEDS: Mometasone 200 MCG/Formoterol 5 MCG 120 PUFF INHALER INH SCH ×2 (06:24→18:15)
[2020-09-07 07:35] LABS: #Eosinphils 0.2 thou/uL (0.0-0.7); #Lymphocytes 2.7 thou/uL (1.20-3.40); #Monocytes 1.1 thou/uL (0.11-0.59); #Neutrophils 12.2 thou/uL (1.40-6.50); %Basophils 0.3 % (0.0-1.0); %Eosinophils 1.1 % (0.0-10.0); %Lymphocytes 16.6 % (21.0-51.0); %Monocytes 6.9 % (0.0-10.0); %Neutrophils 75.1 % (42.0-75.0); Mean Corpuscular HGB CONC 34.4 g/dL (32.0-36.0); Mean Platelet Volume 8.1 fL (7.4-10.4); Platelet Count 324 thou/uL (130-400); RBC Distribution Width 13.3 % (11.5-14.5); Red Blood Cell (RBC) Count 4.38 mill/uL (4.70-6.10); White Blood Cell (WBC) Count 16.2 thou/uL (4.8-10.8)
[2020-09-07] MEDS: Escitalopram Oxalate 20 mg Tablet PO SCH (07:59)
[2020-09-07] MEDS: Loratadine 10 MG TAB PO SCH ×2 (08:00→20:43)
[2020-09-07] MEDS: busPIRone HCl 10 MG TAB PO SCH ×2 (08:00→20:42)
[2020-09-07] MEDS: predniSONE 20 MG TAB PO SCH (08:00)
[2020-09-07] MEDS: Allopurinol 100 MG TAB PO SCH (08:01)
[2020-09-07] MEDS: Nystatin 500,000 UNITS/5 ML UDCUP SSW SCH ×4 (08:01→20:43)
[2020-09-07] MEDS: Enoxaparin Sodium 40 MG/0.4 ML SYRINGE SC SCH ×2 (08:01→20:43)
[2020-09-07] MEDS: Acetaminophen 325 MG TAB PO PRN ×2 (08:01→14:41)
[2020-09-07 08:02] LABS: ALT (SGPT) 116 U/L (8-55); AST (SGOT) 26 U/L (5-34); Albumin 3.4 g/dL (3.5-5.0); Alkaline Phosphatase 83 U/L (40-110); Anion Gap 15 mmol/L (10-20); BUN (Urea Nitrogen) 28 mg/dL (8.4-25.7); Bilirubin, Total 0.5 mg/dL (0.2-1.2); Calc. Creatinine Clearance 138 mL/min (70-130); Calcium 8.7 mg/dL (7.8-10.44); Carbon Dioxide 26 mmol/L (22-29); Chloride 100 mmol/L (98-107); Estimated GFR-MDRD Greater than 90; Globulin 2.7 g/dL (2.4-3.5); Glucose 101 mg/dL (70-105); Protein, Total 6.1 g/dL (6.0-8.3); Sodium 137 mmol/L (136-145)
--- NOTE | 2020-09-07 08:50 | RAD ---
Chest one view HISTORY: COVID pneumonia. Follow-up. COMPARISON: 09/04/2020. FINDINGS: Cardiac silhouette is magnified by projection. Pulmonary vasculature upper limits of normal and accentuated by shallow inspiration. Mediastinum is midline. Patchy ill-defined areas of parenchymal infiltrate throughout each lung are u nchanged from the most recent exam but have become slightly less dense since the 08/29/2020 study. No evidence of pneumothorax. IMPRESSION : Slight gradual radiographic improvement in appearance of multifocal infiltrates. No new abnormalities are demonstrated.
[2020-09-07] MEDS: Labetalol 100 MG TAB PO SCH ×2 (10:02→20:43)
[2020-09-07] MEDS: Insulin Glargine 26 UNITS in Pre-Filled Syringe 1 EACH SC SCH (10:02)
[2020-09-07] MEDS: HumaLOG 300 UNITS/3 ML VIAL SC PRN (13:25)
[2020-09-07] MEDS: Benzonatate 100 MG CAP PO PRN (14:41)
[2020-09-07] MEDS ORDERED: Fluticasone Propionate Nasal Spray 16 gm Bottle NASAL SCH (15:00)
[2020-09-07] MEDS: Zolpidem Tartrate 5 MG TAB PO PRN (20:44)
[2020-09-08] MEDS: hydrOXYzine Pamoate 25 mg Capsule PO SCH ×4 (00:48→18:45)
[2020-09-08] MEDS: Albuterol 200 PUFF (6.7GM INHALER) INH SCH ×4 (00:49→18:44)
[2020-09-08] MEDS: Mometasone 200 MCG/Formoterol 5 MCG 120 PUFF INHALER INH SCH ×2 (05:42→18:40)
--- NOTE | 2020-09-08 05:42 | PDOC.FM ---
- Subjective Subjective: Pt did well overnight. He says he think he will be ready to go home tomorrow. He says he did well with the medication changes yesterday. - Objective MAR Reviewed: Yes Vital Signs & Weight: Vital Signs (12 hours) Temp Pulse Resp BP Pulse Ox 09/07/20 20:00 98.4 F 96 18 143/81 H 94 L Weight Admit Weight 90.174 kg Weight 90.174 kg Most Recent Monitor Data Heart Rate from ECG 88 NIBP 132/88 NIBP BP-Mean 102 Respiration from ECG 27 SpO2 85 I&O: 09/06/20 09/07/20 09/08/20 06:59 06:59 06:59 Intake Total 1600 1200 1000 Output Total 880 Balance 5287 131 8066 Result Diagrams: 09/08/20 06:07 09/08/20 06:07 Phys Exam - Physical Examination Constitutional: NAD HEENT: moist MMs, sclera anicteric Neck: supple Respiratory: no wheezing, no rales, no rhonchi, clear to auscultation bilateral Cardiovascular: RRR, no significant murmur Gastrointestinal: soft, non-tender Musculoskeletal: pulses present Neurological: moves all 4 limbs Lymphatic: no nodes Psychiatric: normal affect Skin: no rash, normal turgor Dx/Plan (1) COVID-19 Code(s): U07.1 - COVID-19 Status: Acute (2) Oral candidiasis Code(s): B37.0 - CANDIDAL STOMATITIS Status: Acute (3) Polysubstance (excluding opioids) dependence Code(s): F19.20 - OTHER PSYCHOACTIVE SUBSTANCE DEPENDENCE, UNCOMPLICATED Status: Acute (4) Depression Code(s): F32.9 - MAJOR DEPRESSIVE DISORDER, SINGLE EPISODE, UNSPECIFIED Status: Acute (5) KEYA (acute kidney injury) Code(s): N17.9 - ACUTE KIDNEY FAILURE, UNSPECIFIED Status: Acute (6) Acute respiratory failure with hypoxia Code(s): J96.01 - ACUTE RESPIRATORY FAILURE WITH HYPOXIA Status: Acute (7) Transaminitis Code(s): R74.01 - ELEVATION OF LEVELS OF LIVER TRANSAMINASE LEVELS Status: Acute - Plan Plan: Patient is a 54 year old male with a history of anxiety and depression who presented to the ED with complains of SOB and cough x 7 days that acutely worsened this am. 1. Acute hypoxic respiratory failure 2/2 COVID Pneumonia, improved - Symptom onset: 08/08 per , COVID + test on admission 08/13. positive ~2wks prior to admission - D/c methylprednisolone 40mg BID and started prednisone 60 mg QD, lowering to 40 mg on 09/07 - Wean from HFNC as tolerated; patient has been satting upper 90s% on HFNC 40L @ 39%, will continue to try to wean as tolerated - S/P convalescent plasma 08/14 and 08/24 - Dulera and albuterol schd - Pulm consulted, d/c Doxy(08/27), apprec recs - D/C'd cefepime (08/14-08/25) - CXR 08/26 demonstrated R subcutaneous emphysema, f/u demonstrates no pneumothorax - Patient tolerating po intake - patient is day s/p +COVID test, precautions removed 2. Polysubstance Abuse - Admits to non-prescribed xanax use, multiple mg per day for past few years, as well as non-prescribed percocet use - Rx for Ambien, Soma, and tramadol from PCP - Patient had increased anxiety and WOB 08/19 after decreasing serax, decreased serax 09/04 10 mg BID, decreased on 09/07 to 5 mg BID -will decrease serax as lexapro is increased - provided information for [facility] for addiction to nursing to give to patient - Hydroxyzine q6h, increased dosage 09/07 - On lexapro for anxiety; increased 08/28 & 09/02; patient states he believes this is helping - Started Buspar 09/04, increasing daily to 30 mg BID 3. Oral Candidiasis -likely due to steroids and inhaler use -nystatin SSW QID started 08/27 4. Indeterminate troponin, resolved - 0.046 -> 0.043 -> 0.022 - EKG t wave inversion lead 3, otherwise no acute ST changes 5. Hyperglycemia - likely 2/2 acute stress and steroids, monitor - Continue to increase daily levemir per ssi requirements - A1C 5.8 6. Metabolic acidosis, resolved - Anion gap of 9 - Bicarb 18 > 24 - Suspect compensation from respiratory acidosis, will monitor, consider ABG if clinically indicated 7. Hypertension - HCTZ d/c'd - BID labetalol added 08/18 8. Depression/Anxiety - No formal diagnosis, but transient episodes of SI - Will consult MHMR when medically cleared to eval prior to discharge. Need to provide with resources moving forward. - Started on lexapro, will continue to monitor and increase as able 9. Transaminitis, improved - Likely 2/2 COVID 19 PNA 10. KEYA, resolved 11. Seasonal Allergies -5mg claritin po BID Code Status: Full IVF: SL Diet: Regular DVT ppx: Lovenox 40mg BID PCP: Frank Dispo: Increased Buspar again today. Will increase to final dose tomorrow. Continue oxygen titration as tolerated and working with PT. We will decreased his prednisone tomorrow. Addendum - Attending - Attending Attestation Date/Time: 09/08/20 0752 I personally evaluated the patient and discussed the management with Dr. Mayers. I agree with the History, Examination, Assessment and Plan documented above with any addition or exceptions noted below. Patient is planning to d/c tomorrow. Continue to adjust medications for anxiety.
[2020-09-08 06:59] LABS: #Basophils 0.1 thou/uL (0.0-0.2); #Eosinphils 0.2 thou/uL (0.0-0.7); #Lymphocytes 2.7 thou/uL (1.20-3.40); #Monocytes 0.9 thou/uL (0.11-0.59); #Neutrophils 12.1 thou/uL (1.40-6.50); %Basophils 0.7 % (0.0-1.0); %Eosinophils 0.9 % (0.0-10.0); %Lymphocytes 16.6 % (21.0-51.0); %Monocytes 5.7 % (0.0-10.0); %Neutrophils 76.1 % (42.0-75.0); Hemoglobin 13.9 g/dL (14.0-18.0); Mean Corpuscular HGB CONC 33.1 g/dL (32.0-36.0); Mean Corpuscular Hemoglobin 31.1 pg (27.0-31.0); Mean Corpuscular Volume 93.7 fL (78.0-98.0); Mean Platelet Volume 8.2 fL (7.4-10.4); Platelet Count 325 thou/uL (130-400); RBC Distribution Width 13.3 % (11.5-14.5); Red Blood Cell (RBC) Count 4.47 mill/uL (4.70-6.10)
[2020-09-08 07:15] LABS: ALT (SGPT) 110 U/L (8-55); AST (SGOT) 28 U/L (5-34); Albumin 3.5 g/dL (3.5-5.0); Alkaline Phosphatase 91 U/L (40-110); Anion Gap 17 mmol/L (10-20); BUN (Urea Nitrogen) 28 mg/dL (8.4-25.7); Bilirubin, Total 0.5 mg/dL (0.2-1.2); Calc. Creatinine Clearance 132 mL/min (70-130); Calcium 8.8 mg/dL (7.8-10.44); Carbon Dioxide 22 mmol/L (22-29); Chloride 100 mmol/L (98-107); Estimated GFR-MDRD Greater than 90; Globulin 2.7 g/dL (2.4-3.5); Glucose 225 mg/dL (70-105); Potassium 3.7 mmol/L (3.5-5.1); Protein, Total 6.2 g/dL (6.0-8.3); Sodium 135 mmol/L (136-145)
[2020-09-08] MEDS: Insulin Glargine 26 UNITS in Pre-Filled Syringe 1 EACH SC SCH (07:59)
[2020-09-08] MEDS: predniSONE 20 MG TAB PO SCH (08:00)
[2020-09-08] MEDS: Allopurinol 100 MG TAB PO SCH (08:01)
[2020-09-08] MEDS: busPIRone HCl 10 MG TAB PO SCH ×2 (08:01→20:49)
[2020-09-08] MEDS: Escitalopram Oxalate 20 mg Tablet PO SCH (08:01)
[2020-09-08] MEDS: Fluticasone Propionate Nasal Spray 16 gm Bottle NASAL SCH (08:02)
[2020-09-08] MEDS: Loratadine 10 MG TAB PO SCH ×2 (08:02→20:50)
[2020-09-08] MEDS: Nystatin 500,000 UNITS/5 ML UDCUP SSW SCH ×4 (08:03→20:51)
[2020-09-08] MEDS: Enoxaparin Sodium 40 MG/0.4 ML SYRINGE SC SCH ×2 (08:03→20:52)
[2020-09-08] MEDS: Labetalol 100 MG TAB PO SCH ×2 (10:53→20:50)
[2020-09-08] MEDS: Acetaminophen 325 MG TAB PO PRN (12:29)
[2020-09-08] MEDS: Benzonatate 100 MG CAP PO PRN (12:29)
[2020-09-08] MEDS: HumaLOG 300 UNITS/3 ML VIAL SC PRN (16:43)
[2020-09-08] MEDS: Zolpidem Tartrate 5 MG TAB PO PRN (20:56)
[2020-09-09] MEDS: Albuterol 200 PUFF (6.7GM INHALER) INH SCH ×4 (01:28→20:08)
[2020-09-09] MEDS: hydrOXYzine Pamoate 25 mg Capsule PO SCH ×4 (01:28→21:49)
[2020-09-09 06:25] LABS: #Basophils 0.1 thou/uL (0.0-0.2); #Eosinphils 0.2 thou/uL (0.0-0.7); #Lymphocytes 2.9 thou/uL (1.20-3.40); #Neutrophils 10.2 thou/uL (1.40-6.50); %Basophils 0.5 % (0.0-1.0); %Eosinophils 1.1 % (0.0-10.0); %Lymphocytes 20.5 % (21.0-51.0); %Neutrophils 70.9 % (42.0-75.0); Hemoglobin 13.7 g/dL (14.0-18.0); Mean Corpuscular HGB CONC 34.3 g/dL (32.0-36.0); Mean Corpuscular Hemoglobin 31.9 pg (27.0-31.0); Mean Corpuscular Volume 92.8 fL (78.0-98.0); Mean Platelet Volume 7.6 fL (7.4-10.4); Platelet Count 302 thou/uL (130-400); RBC Distribution Width 13.4 % (11.5-14.5); Red Blood Cell (RBC) Count 4.31 mill/uL (4.70-6.10); White Blood Cell (WBC) Count 14.3 thou/uL (4.8-10.8)
[2020-09-09] MEDS: Mometasone 200 MCG/Formoterol 5 MCG 120 PUFF INHALER INH SCH ×2 (06:31→18:30)
[2020-09-09 06:48] LABS: ALT (SGPT) 108 U/L (8-55); AST (SGOT) 28 U/L (5-34); Albumin 3.5 g/dL (3.5-5.0); Alkaline Phosphatase 79 U/L (40-110); Anion Gap 13 mmol/L (10-20); BUN (Urea Nitrogen) 27 mg/dL (8.4-25.7); Bilirubin, Total 0.5 mg/dL (0.2-1.2); Calc. Creatinine Clearance 138 mL/min (70-130); Calcium 8.8 mg/dL (7.8-10.44); Carbon Dioxide 28 mmol/L (22-29); Chloride 101 mmol/L (98-107); Estimated GFR-MDRD Greater than 90; Globulin 2.6 g/dL (2.4-3.5); Glucose 85 mg/dL (70-105); Potassium 3.8 mmol/L (3.5-5.1); Protein, Total 6.1 g/dL (6.0-8.3); Sodium 138 mmol/L (136-145)
--- NOTE | 2020-09-09 07:13 | PDOC.FM ---
- Subjective Subjective: He is doing well this morning. He feels he is ready to go home. He states he has good social support and that he has help at home. He agrees to follow up with Dr. Marie when he leaves the hospital. - Objective MAR Reviewed: Yes Vital Signs & Weight: Vital Signs (12 hours) Temp Pulse Resp BP BP Pulse Ox 09/08/20 20:50 89 136/85 09/08/20 20:00 98.5 F 89 18 136/85 99 Weight Admit Weight 90.174 kg Weight 90.174 kg Most Recent Monitor Data Heart Rate from ECG 88 NIBP 132/88 NIBP BP-Mean 102 Respiration from ECG 27 SpO2 85 I&O: 09/08/20 09/09/20 09/10/20 06:59 06:59 06:59 Intake Total 1000 1560 Output Total 400 Balance 1000 1160 Result Diagrams: 09/09/20 06:04 09/09/20 06:04 Phys Exam - Physical Examination Constitutional: NAD HEENT: moist MMs, sclera anicteric Neck: supple Respiratory: no wheezing, no rales, no rhonchi, clear to auscultation bilateral Cardiovascular: RRR, no significant murmur Gastrointestinal: soft, non-tender, positive bowel sounds Musculoskeletal: no edema, pulses present Neurological: moves all 4 limbs Lymphatic: no nodes Psychiatric: normal affect Skin: no rash Dx/Plan (1) COVID-19 Code(s): U07.1 - COVID-19 Status: Acute (2) Oral candidiasis Code(s): B37.0 - CANDIDAL STOMATITIS Status: Acute (3) Polysubstance (excluding opioids) dependence Code(s): F19.20 - OTHER PSYCHOACTIVE SUBSTANCE DEPENDENCE, UNCOMPLICATED Status: Acute (4) Depression Code(s): F32.9 - MAJOR DEPRESSIVE DISORDER, SINGLE EPISODE, UNSPECIFIED Status: Acute (5) KEYA (acute kidney injury) Code(s): N17.9 - ACUTE KIDNEY FAILURE, UNSPECIFIED Status: Acute (6) Acute respiratory failure with hypoxia Code(s): J96.01 - ACUTE RESPIRATORY FAILURE WITH HYPOXIA Status: Acute (7) Transaminitis Code(s): R74.01 - ELEVATION OF LEVELS OF LIVER TRANSAMINASE LEVELS Status: Acute - Plan Plan: Patient is a 54 year old male with a history of anxiety and depression who presented to the ED with complains of SOB and cough x 7 days that acutely worsened this am. 1. Acute hypoxic respiratory failure 2/2 COVID Pneumonia, improved - Symptom onset: 08/08 per , COVID + test on admission 08/13. positive ~2wks prior to admission - D/c methylprednisolone 40mg BID and started prednisone 60 mg QD, lowering to 40 mg on 09/07 - Wean from HFNC as tolerated; patient has been satting upper 90s% on HFNC 40L @ 39%, will continue to try to wean as tolerated - S/P convalescent plasma 08/14 and 08/24 - Dulera and albuterol schd - Pulm consulted, d/c Doxy(08/27), apprec recs - D/C'd cefepime (08/14-08/25) - CXR 08/26 demonstrated R subcutaneous emphysema, f/u demonstrates no pneumothorax - Patient tolerating po intake - patient is day s/p +COVID test, precautions removed 2. Polysubstance Abuse - Admits to non-prescribed xanax use, multiple mg per day for past few years, as well as non-prescribed percocet use - Rx for Ambien, Soma, and tramadol from PCP - Patient had increased anxiety and WOB 08/19 after decreasing serax, decreased serax 09/04 10 mg BID, decreased on 09/07 to 5 mg BID -will decrease serax as lexapro is increased - provided information for [facility] for addiction to nursing to give to patient - Hydroxyzine q6h, increased dosage 09/07 - On lexapro for anxiety; increased 08/28 & 09/02; patient states he believes this is helping - Started Buspar 09/04, increasing daily to 30 mg BID 3. Oral Candidiasis -likely due to steroids and inhaler use -nystatin SSW QID started 08/27 4. Indeterminate troponin, resolved - 0.046 -> 0.043 -> 0.022 - EKG t wave inversion lead 3, otherwise no acute ST changes 5. Hyperglycemia - likely 2/2 acute stress and steroids, monitor - Continue to increase daily levemir per ssi requirements - A1C 5.8 6. Metabolic acidosis, resolved - Anion gap of 9 - Bicarb 18 > 24 - Suspect compensation from respiratory acidosis, will monitor, consider ABG if clinically indicated 7. Hypertension - HCTZ d/c'd - BID labetalol added 08/18 8. Depression/Anxiety - No formal diagnosis, but transient episodes of SI - Will consult MHMR when medically cleared to eval prior to discharge. Need to provide with resources moving forward. - Started on lexapro, will continue to monitor and increase as able 9. Transaminitis, improved - Likely 2/2 COVID 19 PNA -Will need outpt followup for resolution 10. KEYA, resolved 11. Seasonal Allergies -5mg claritin po BID Code Status: Full IVF: SL Diet: Regular DVT ppx: Lovenox 40mg BID PCP: Frank Dispo: Likely will d/c today with tapering dose of steroids, increased buspar, and librium that he will need to follow up outpt with his doctor. He will require oxygen at home.
[2020-09-09] MEDS: Labetalol 100 MG TAB PO SCH ×2 (08:26→20:22)
[2020-09-09] MEDS: Nystatin 500,000 UNITS/5 ML UDCUP SSW SCH ×4 (08:26→20:19)
[2020-09-09] MEDS: busPIRone HCl 10 MG TAB PO SCH ×2 (08:26→20:19)
[2020-09-09] MEDS: predniSONE 20 MG TAB PO SCH (08:27)
[2020-09-09] MEDS: Loratadine 10 MG TAB PO SCH ×2 (08:27→20:19)
[2020-09-09] MEDS: Escitalopram Oxalate 20 mg Tablet PO SCH (08:27)
[2020-09-09] MEDS: Enoxaparin Sodium 40 MG/0.4 ML SYRINGE SC SCH ×2 (08:28→20:27)
[2020-09-09] MEDS: Allopurinol 100 MG TAB PO SCH (08:28)
[2020-09-09] MEDS: Fluticasone Propionate Nasal Spray 16 gm Bottle NASAL SCH (08:28)
--- NOTE | 2020-09-09 11:26 | PRG ---
DATE OF SERVICE: 09/09/2020 Mr. Roque is looking and feeling much better. He will be discharged home today with good family support. He is encouraged to ambulate as much as possible when at home and will follow up with his PCP at a later date. Job ID: [id number]
[2020-09-09] MEDS: Insulin Glargine 26 UNITS in Pre-Filled Syringe 1 EACH SC SCH (12:35)
[2020-09-09] MEDS: Zolpidem Tartrate 5 MG TAB PO PRN (20:19)
[2020-09-09] MEDS: Benzonatate 100 MG CAP PO PRN (20:24)
[2020-09-09] MEDS: Acetaminophen 325 MG TAB PO PRN (20:24)
[2020-09-10] MEDS: Albuterol 200 PUFF (6.7GM INHALER) INH SCH ×3 (02:24→11:46)
[2020-09-10] MEDS: Acetaminophen 325 MG TAB PO PRN ×2 (02:31→08:15)
[2020-09-10] MEDS: hydrOXYzine Pamoate 25 mg Capsule PO SCH ×3 (02:32→11:46)
--- NOTE | 2020-09-10 06:07 | PDOC.FM ---
- Subjective Subjective: He is doing well this morning. He de-saturated yesterday only after removing the oxygen. Case management is going to call and get the portable oxygen today. - Objective MAR Reviewed: Yes Vital Signs & Weight: Vital Signs (12 hours) Temp Pulse Resp BP Pulse Ox 09/09/20 20:22 98.0 F 103 H 18 113/75 100 09/09/20 20:00 100 Weight Admit Weight 90.174 kg Weight 90.174 kg Most Recent Monitor Data Heart Rate from ECG 88 NIBP 132/88 NIBP BP-Mean 102 Respiration from ECG 27 SpO2 85 I&O: 09/08/20 09/09/20 09/10/20 06:59 06:59 06:59 Intake Total 1000 1560 1200 Output Total 400 Balance 1000 1160 1200 Result Diagrams: 09/10/20 06:27 09/10/20 06:27 Phys Exam - Physical Examination Constitutional: NAD HEENT: moist MMs, sclera anicteric Neck: supple Respiratory: no wheezing, no rales, no rhonchi, clear to auscultation bilateral Cardiovascular: RRR, no significant murmur Gastrointestinal: soft, non-tender Musculoskeletal: no edema, pulses present Neurological: moves all 4 limbs Lymphatic: no nodes Psychiatric: normal affect Skin: no rash Dx/Plan (1) COVID-19 Code(s): U07.1 - COVID-19 Status: Acute (2) Oral candidiasis Code(s): B37.0 - CANDIDAL STOMATITIS Status: Acute (3) Polysubstance (excluding opioids) dependence Code(s): F19.20 - OTHER PSYCHOACTIVE SUBSTANCE DEPENDENCE, UNCOMPLICATED Status: Acute (4) Depression Code(s): F32.9 - MAJOR DEPRESSIVE DISORDER, SINGLE EPISODE, UNSPECIFIED Status: Acute (5) KEYA (acute kidney injury) Code(s): N17.9 - ACUTE KIDNEY FAILURE, UNSPECIFIED Status: Acute (6) Acute respiratory failure with hypoxia Code(s): J96.01 - ACUTE RESPIRATORY FAILURE WITH HYPOXIA Status: Acute (7) Transaminitis Code(s): R74.01 - ELEVATION OF LEVELS OF LIVER TRANSAMINASE LEVELS Status: Acute - Plan Plan: Patient is a 54 year old male with a history of anxiety and depression who pre sented to the ED with complains of SOB and cough x 7 days that acutely worsened this am. 1. Acute hypoxic respiratory failure 2/2 COVID Pneumonia, improved - Symptom onset: 08/08 per , COVID + test on admission 08/13. positive ~2wks prior to admission - D/c methylprednisolone 40mg BID and started prednisone 60 mg QD, lowering to 40 mg on 09/07 - Wean from HFNC as tolerated; patient has been satting upper 90s% on HFNC 40L @ 39%, will continue to try to wean as tolerated - S/P convalescent plasma 08/14 and 08/24 - Dulera and albuterol schd - Pulm consulted, d/c Doxy(08/27), apprec recs - D/C'd cefepime (08/14-08/25) - CXR 08/26 demonstrated R subcutaneous emphysema, f/u demonstrates no pneumothorax - Patient tolerating po intake - patient is day s/p +COVID test, precautions removed 2. Polysubstance Abuse - Admits to non-prescribed xanax use, multiple mg per day for past few years, as well as non-prescribed percocet use - Rx for Ambien, Soma, and tramadol from PCP - Patient had increased anxiety and WOB 08/19 after decreasing serax, decreased serax 09/04 10 mg BID, decreased on 09/07 to 5 mg BID -will decrease serax as lexapro is increased - provided information for [facility] for addiction to nursing to give to patient - Hydroxyzine q6h, increased dosage 09/07 - On lexapro for anxiety; increased 08/28 & 09/02; patient states he believes this is helping - Started Buspar 09/04, increasing daily to 30 mg BID 3. Oral Candidiasis -likely due to steroids and inhaler use -nystatin SSW QID started 08/27 4. Indeterminate troponin, resolved - 0.046 -> 0.043 -> 0.022 - EKG t wave inversion lead 3, otherwise no acute ST changes 5. Hyperglycemia - likely 2/2 acute stress and steroids, monitor - Continue to increase daily levemir per ssi requirements - A1C 5.8 - Will send with Metformin, follow up outpt for discontinuation 6. Metabolic acidosis, resolved - Anion gap of 9 - Bicarb 18 > 24 - Suspect compensation from respiratory acidosis, will monitor, consider ABG if clinically indicated 7. Hypertension - HCTZ d/c'd - BID labetalol added 08/18 8. Depression/Anxiety - No formal diagnosis, but transient episodes of SI - Will consult MHMR when medically cleared to eval prior to discharge. Need to provide with resources moving forward. - Started on lexapro, will continue to monitor and increase as able 9. Transaminitis, improved - Likely 2/2 COVID 19 PNA -Will need outpt followup for resolution 10. KEYA, resolved 11. Seasonal Allergies -5mg claritin po BID & Flonase Code Status: Full IVF: SL Diet: Regular DVT ppx: Lovenox 40mg BID PCP: Frank Dispo: Pt was to be discharged yesterday; however, this did not happen. Will attempt to discharge today with plans for oxygen in transit.
[2020-09-10] MEDS: Mometasone 200 MCG/Formoterol 5 MCG 120 PUFF INHALER INH SCH (06:36)
[2020-09-10 07:02] LABS: #Basophils 0.1 thou/uL (0.0-0.2); #Eosinphils 0.2 thou/uL (0.0-0.7); #Lymphocytes 2.8 thou/uL (1.20-3.40); #Monocytes 0.7 thou/uL (0.11-0.59); #Neutrophils 9.1 thou/uL (1.40-6.50); %Basophils 0.7 % (0.0-1.0); %Eosinophils 1.3 % (0.0-10.0); %Lymphocytes 21.9 % (21.0-51.0); %Monocytes 5.2 % (0.0-10.0); %Neutrophils 70.9 % (42.0-75.0); Hemoglobin 13.4 g/dL (14.0-18.0); Mean Corpuscular HGB CONC 33.9 g/dL (32.0-36.0); Mean Corpuscular Hemoglobin 31.7 pg (27.0-31.0); Mean Corpuscular Volume 93.3 fL (78.0-98.0); Mean Platelet Volume 7.9 fL (7.4-10.4); Platelet Count 300 thou/uL (130-400); RBC Distribution Width 13.5 % (11.5-14.5); Red Blood Cell (RBC) Count 4.22 mill/uL (4.70-6.10); White Blood Cell (WBC) Count 12.8 thou/uL (4.8-10.8)
[2020-09-10 07:21] LABS: ALT (SGPT) 112 U/L (8-55); AST (SGOT) 33 U/L (5-34); Albumin 3.4 g/dL (3.5-5.0); Alkaline Phosphatase 88 U/L (40-110); Anion Gap 15 mmol/L (10-20); BUN (Urea Nitrogen) 25 mg/dL (8.4-25.7); Bilirubin, Total 0.4 mg/dL (0.2-1.2); Calc. Creatinine Clearance 132 mL/min (70-130); Calcium 8.8 mg/dL (7.8-10.44); Carbon Dioxide 25 mmol/L (22-29); Chloride 103 mmol/L (98-107); Estimated GFR-MDRD Greater than 90; Globulin 2.5 g/dL (2.4-3.5); Glucose 162 mg/dL (70-105); Potassium 3.5 mmol/L (3.5-5.1); Protein, Total 5.9 g/dL (6.0-8.3); Sodium 139 mmol/L (136-145)
[2020-09-10] MEDS: busPIRone HCl 10 MG TAB PO SCH (08:10)
[2020-09-10] MEDS: Insulin Glargine 26 UNITS in Pre-Filled Syringe 1 EACH SC SCH (08:10)
[2020-09-10] MEDS: Allopurinol 100 MG TAB PO SCH (08:14)
[2020-09-10] MEDS: Escitalopram Oxalate 20 mg Tablet PO SCH (08:14)
[2020-09-10] MEDS: Benzonatate 100 MG CAP PO PRN (08:14)
[2020-09-10] MEDS: Loratadine 10 MG TAB PO SCH (08:15)
[2020-09-10] MEDS: Labetalol 100 MG TAB PO SCH (08:16)
[2020-09-10] MEDS: Enoxaparin Sodium 40 MG/0.4 ML SYRINGE SC SCH (08:18)
[2020-09-10] MEDS: predniSONE 20 MG TAB PO SCH (08:18)
[2020-09-10] MEDS: Nystatin 500,000 UNITS/5 ML UDCUP SSW SCH ×2 (08:19→13:07)
[2020-09-10] MEDS: Fluticasone Propionate Nasal Spray 16 gm Bottle NASAL SCH (08:19)
[2020-09-10 08:51] VITALS: BP 116/69
--- NOTE | 2020-09-10 10:27 | PRG ---
DATE OF SERVICE: 09/10/2020 We are still having some placement issues with Mr. Roque. Otherwise, he can likely go home today. Job ID: [id number]
[2020-09-10] MEDS: HumaLOG 300 UNITS/3 ML VIAL SC PRN (11:48)
[2020-09-10 12:27] VITALS: TEMP 98.3
--- NOTE | 2020-09-11 15:25 | DIS ---
DATE OF ADMISSION: 08/13/2020 DATE OF DISCHARGE: 09/10/2020 RESIDENT: Lefty Mayers MD CONSULTS: Pulmonology. Taper steroids over the next several weeks. Continue on nasal cannula after discharge. PROCEDURES: Chest x-ray on 08/13, bilateral infiltrates. Chest CT, no evidence of PE. No significant mediastinal and hilar adenopathy and showed bilateral ground glass opacities. Chest x-ray on 08/16 showed similar examination without significant lung aeration. Chest x-ray on 08/20, worsening bilateral infiltrates. Chest x-ray on 08/23, persistent bilateral infiltrates. Chest x-ray continuing every three days prior to discharge. Chest x-ray on 09/07 showed an improvement of multifocal infiltrates and no noted abnormalities. PRIMARY DIAGNOSES: 1. Acute hypoxic respiratory failure secondary to COVID pneumonia, improved. 2. Polysubstance abuse. 3. Oral candidiasis. 4. Indeterminate troponin, resolved. SECONDARY DIAGNOSES: 1. Hyperglycemia. 2. Metabolic acidosis, resolved. 3. Hypertension. 4. Depression. 5. Anxiety. 6. Transaminitis. 7. Acute kidney injury. 8. Seasonal allergies. DISCHARGE MEDICATIONS: 1. Ambien 5 mg p.o. at bedtime p.r.n. for 14 days. 2. Librium 10 mg b.i.d. for 7 days. 3. BuSpar 30 mg p.o. b.i.d. for 30 days. 4. Dulera two puffs inhale b.i.d. for 30 days. 5. Fluticasone two sprays nasal daily for 30 days. 6. Metformin 500 mg at bedtime for 30 days. 7. Lexapro 30 mg daily for 30 days. 8. Melatonin 3 mg at bedtime for 30 days p.r.n. for insomnia. 9. Labetalol 100 mg p.o. b.i.d. for 30 days. 10. Prednisone dose pack. 11. Albuterol 2 puffs inhaled q.4 hours p.r.n. for shortness of breath. 12. Tessalon Perles 100 mg p.o. t.i.d. p.r.n., 45 caplets for 15 days. 13. Hydroxyzine 50 mg q.6 hours p.r.n. anxiety for 30 days, 120 tabs. 14. Allopurinol 100 mg p.o. daily for 30 days. DISCONTINUED MEDICATIONS: Convalescent plasma, serax, and remdesivir. HISTORY OF PRESENT ILLNESS: The patient is a 54-year-old male with a history of anxiety and depression, who presented to the ED with complaints of shortness of breath and cough x7 days, they acutely worsened. Denies headache, vision changes, chest pain, palpitations, nausea, and diaphoresis. The patient reports pulse ox of 50% at home. EMS was called. The patient was placed on non-rebreather with sats in the mid 80s. In the ED, the patient was transitioned from non-rebreather to high-flow nasal cannula. Sats remained in the 80s with tachypnea. Therefore, patient was placed on BiPAP, saturating 95%-100%. Acetaminophen 1 g, Proventil 4 puffs, Zithromax 500 mg, Rocephin 2 g, and dexamethasone 10 mg were administered. 1. Acute hypoxic respiratory failure secondary to COVID pneumonia, symptom onset was 08/08. Per , COVID positive test on admission on 08/13, was positive two weeks prior. He was on methylprednisolone, but discharged after titrating down with the Medrol Dosepak. He received convalescent plasma on 08/14 and on 08/24 Dulera and albuterol were scheduled and sent home. Pulmonary was consulted and they prescribed doxycycline, which was stopped on 08/27, as well as cefepime that he took from 08/14 to 08/25. Chest x-ray demonstrated subcutaneous emphysema, which resolved prior to discharge. The patient was discharged on 3 L nasal cannula, saturating well prior to discharge. 2. Polysubstance abuse and it is a non-prescribed Xanax use, multiple mg per day for the past years as well as non-prescribed Percocet use. He had a prescription for Ambien, soma and tramadol from PCP. Patient has increased anxiety and work of breathing. He was on steroids initially during the hospitalization. He was started on Lexapro and titrated up to 30 mg daily. He was started on BuSpar and he takes 30 mg b.i.d. prior to discharge and will be continued. Hydroxyzine 50 mg q.6 hours p.r.n. for agitation. We will send him with Librium 10 mg b.i.d. for 7 days and his Ambien for 14 days. 3. Oral candidiasis, nystatin swish and swallow q.i.d. started on 08/2010, discontinued prior to discharge. 4. Indeterminate troponin, resolved. Troponins were 0.046, 0.043 and 0.022. EKG showed T-wave inversions in lead III. Otherwise, no acute ST changes. 5. Hyperglycemia, likely secondary to stress and steroids. A1c was 5.8, was then on metformin, needs to follow up outpatient for discontinuation. 6. Metabolic acidosis with anion gap of 8, bicarb 18-24 compensation from respiratory acidosis. 7. Hypertension, discontinued hydrochlorothiazide and labetalol b.i.d. added. 8. Depression and anxiety. No formal diagnosis. He is going home on Lexapro and BuSpar. 9. Transaminitis, resolved likely secondary to given pneumonia. 10. Acute kidney injury, resolved. 11. Seasonal allergies. The patient was sent on Flonase and Zyrtec. DISCHARGE INSTRUCTIONS: 1. Discharge home. 2. Activity: As tolerated. 3. Diet: Regular. 4. Follow up with PCP within 7 days of discharge. 5. Medical equipment: Oxygen. Job ID: [id number] [facility]
--- NOTE | 2020-09-13 04:05 | PQF ---
CLINICAL DOCUMENTATION CLARIFICATION FORM: Dear : Akosua Ricks Date / Time: 09/13/2020 9341 Please exercise your independent, professional judgment in responding to the clarification form. Clinical indicators are provided on the bottom of this form for your review Please check appropriate box(es): [ x ] Sepsis due to Covid Pneumonia [ ] Severe sepsis due to Covid Pneumonia with Acute Respiratory Failure [ ] Localized infection without sepsis [ ] Other diagnosis, please specify: [ ] Unable to determine In addition, please specify: Present on Admission (POA): [x ] Yes [ ] No [ ] Unable to determine Physician Signature: Date/Time: For continuity of documentation, please document condition throughout progress notes and discharge summary. Thank You. To be completed by CDI/Coding staff for physician review: Present Clinical Indicators - Signs / Symptoms / Labs Results and Location in Medical Record [X] WBC 11.9, Plt count 459, Neutrophils 86.8, Band 1, Lactic acid 2.6, Procalcitonin 0.39 Laboratory 09/13 [X] SARS Cov 2 Rap: Detected Serology 09/13 [X] BP 111/82, Pulse 93, Resp 40, Temp 99.8 Vital signs 09/13 [X] SIRS Scoring: Yes, did pt meet criteria ED notes p5 09/13 [X] complains of SOB and cough x 7 H&P p1 09/13 Dr Anderson [X] Pt placed on nonrebreather with sats mid 80s H&P p1 09/13 Dr Anderson [X] Acute hypoxic respiratory failure 2/2 Covid Pneumonia H&P p4 09/13 Dr Anderson [X] KEYA H&P p4 09/13 Dr Anderson [X] Chest Xray: There are hazy alveolar infiltrates seen in the right mid lung and right lower lung Chest Xray08/13 [X] Blood culture: no growth in 5 days Laboratory 08/13 Present Risk Factors Results and Location in Medical Record [X] Covid Pneumonia H&P p4 09/13 Dr Anderson [X] CKD H&P p4 09/13 Dr Anderson [X] Oral candidiasis PN 09/10 Present Treatments Results and Location in Medical Record [X] IVF NS 1L DEC 26 [X] IV Lactated Ringers 1L DEC 26 [X] IV Cefepime 1 gm DEC 26 [X] IV Zithromax 500 mg DEC 2627 [X] Convalescent Plasma Blood bank 08/14 [X] Bipap Respiratory Panel 09/13 [X] Respiratory consult Consult Dr Kidd 09/13 CDS/Senior Group Manager Signature: Tricia Carrillo Phone #: [phone] Date/Time: 09/13/2020 0409 This is a permanent part of the Medical Record MTDD
== END 2020-09-10 16:53 | disposition home or self-care (01) | DRG 871 ==
LOC: ERS 17:50 → IMCU/EMU 21:18 → T4-B 08-23 14:59
PROVIDERS: ADMIT Student in an Organized Health Care Education/Training Program; ATTEND Student in an Organized Health Care Education/Training Program
PROC: 5A09357 Assistance with Respiratory Ventilation, Less than 24 Consecutive Hours, Continuous Positive Airway Pressure (ICD-10-PCS; 2020-08-13)
PROC: 8E0ZXY6 Isolation (ICD-10-PCS; 2020-08-13)
PROC: XW13325 Transfusion of Convalescent Plasma (Nonautologous) into Peripheral Vein, Percutaneous Approach, New Technology Group 5 (ICD-10-PCS; principal; 2020-08-14)
DX: A41.89 Other specified sepsis (principal); U07.1 COVID-19; J12.89 Other viral pneumonia; J96.01 Acute respiratory failure with hypoxia; N17.9 Acute kidney failure, unspecified; B37.0 Candidal stomatitis; E87.2 Acidosis; E87.3 Alkalosis; R79.89 Other specified abnormal findings of blood chemistry; F32.9 Major depressive disorder, single episode, unspecified; F41.9 Anxiety disorder, unspecified; J30.2 Other seasonal allergic rhinitis; R74.01 Elevation of levels of liver transaminase levels; R73.9 Hyperglycemia, unspecified; F19.10 Other psychoactive substance abuse, uncomplicated; T38.0X5A Adverse effect of glucocorticoids and synthetic analogues, initial encounter; I10 Essential (primary) hypertension; D69.6 Thrombocytopenia, unspecified; J98.2 Interstitial emphysema; Z28.21 Immunization not carried out because of patient refusal; Z79.899 Other long term (current) drug therapy; Z79.891 Long term (current) use of opiate analgesic
CPT/HCPCS: 36415; 36416; 36430; 71045; 71275; 80048; 80053; 81001; 82553; 82728; 82805; 83036; 83605; 83615; 84145; 84484; 85025; 85379; 86140; 86803; 86850; 86900; 86901; 87040; 93005; 94660; 94664; 96365; 96375; J0456; J0692; J0696; J1100; J1650; J1815; J2920; J3480; J3490; J7050; J7512; J7611; P9017; Q0177; S0028; U0002

== ENCOUNTER 2021-06-02 07:29 | Inpatient (IN) | payer BC ==
[2021-06-02] MEDS ORDERED: Morphine 4 MG/ML VIAL ONE ×2 (07:54→11:36)
[2021-06-02] MEDS ORDERED: Ketorolac Tromethamine 30 MG/ML VIAL ONE (07:54)
[2021-06-02 08:12] LABS: Mean Corpuscular HGB CONC 34.6 g/dL (32.0-36.0); Mean Corpuscular Hemoglobin 32.1 pg (27.0-31.0); Mean Corpuscular Volume 92.9 fL (78.0-98.0); Mean Platelet Volume 7.4 fL (7.4-10.4); Platelet Count 512 thou/uL (130-400); RBC Distribution Width 12.1 % (11.5-14.5); Red Blood Cell (RBC) Count 4.97 mill/uL (4.70-6.10); White Blood Cell (WBC) Count 25.9 thou/uL (4.8-10.8)
[2021-06-02 08:30] LABS: ALT (SGPT) 33 U/L (8-55); AST (SGOT) 39 U/L (5-34); Albumin 4.6 g/dL (3.5-5.0); Alkaline Phosphatase 69 U/L (40-110); Anion Gap 16 mmol/L (10-20); BUN (Urea Nitrogen) 8 mg/dL (8.4-25.7); Bilirubin, Total 0.6 mg/dL (0.2-1.2); Calc. Creatinine Clearance 0 mL/min (70-130); Carbon Dioxide 21 mmol/L (22-29); Chloride 104 mmol/L (98-107); Globulin 3.6 g/dL (2.4-3.5); Glucose 129 mg/dL (70-105); Potassium 3.3 mmol/L (3.5-5.1); Protein, Total 8.2 g/dL (6.0-8.3); Sodium 138 mmol/L (136-145)
[2021-06-02 08:41] LABS: Band 4 % (5-11); Lymphocytes 7 % (21-51); MDiff Complete? YES; Monocytes 13 % (0-10); Neutrophil 76 % (42-75); Platelet Morphology Comment Appears Increased; RBC Morphology Normal
[2021-06-02] MEDS ORDERED: Fentanyl 100 MCG/2 ML VIAL ONE ×4 (09:27→16:32)
[2021-06-02] MEDS ORDERED: PROPOFOL 20 ML ONE (09:42)
[2021-06-02] MEDS ORDERED: Dextrose 5% in Water 1,000 ML IV PRN (11:57)
[2021-06-02] MEDS ORDERED: Ondansetron PF 4 MG/2 ML Vial IVP PRN (11:57)
[2021-06-02] MEDS ORDERED: Dextrose 50% Abboject 50 ML SYRINGE SLOW IVP PRN (11:57)
[2021-06-02] MEDS ORDERED: hydrALAZINE 20 MG/ML VIAL SLOW IVP PRN (11:57)
[2021-06-02] MEDS ORDERED: Ibuprofen 800 MG TAB PO PRN (12:04)
[2021-06-02 12:30] LABS: Magnesium 2.1 mg/dL (1.6-2.6)
[2021-06-02 12:33] LABS: Phosphorus 1.8 mg/dL (2.3-4.7)
[2021-06-02 13:10] LABS: SARS-CoV-2 NAA Rapid Test Not Detected (NotDetected)
[2021-06-02] MEDS ORDERED: hydrALAZINE 20 MG/ML VIAL ONE ×2 (13:39→18:26)
[2021-06-02] MEDS ORDERED: Lidocaine 2% Jelly 5 ML TUBE ONE (14:27)
[2021-06-02] MEDS ORDERED: Midazolam HCl 2 mg/2 ml Vial ONE ×2 (14:27→14:29)
[2021-06-02] MEDS ORDERED: SUGAMMADEX SODIUM 500 MG/5 ML VIAL ONE (14:49)
[2021-06-02] MEDS ORDERED: Lidocaine 1% PF 5 ML VIAL ONE (15:00)
[2021-06-02] MEDS ORDERED: PROPOFOL 200 MG/20 ML VIAL ONE (15:00)
[2021-06-02] MEDS ORDERED: Rocuronium Bromide 10 MG/ML (10ML VIAL) ONE (15:00)
[2021-06-02 16:52] VITALS: BMI 32.6
[2021-06-02] MEDS ORDERED: Labetalol HCl 100 MG/20 ML VIAL ONE (17:33)
[2021-06-02] MEDS ORDERED: Labetalol HCl 100 MG/20 ML VIAL SLOW IVP PRN (17:53)
[2021-06-02] MEDS: traMADol HCl 50 MG TAB PO SCH ×2 (20:25→20:46)
[2021-06-02] MEDS: Sodium Chloride 0.9% 1,000 ML IV SCH ×2 (20:25→20:44)
[2021-06-02] MEDS: Acetaminophen 500 MG TAB PO SCH ×2 (20:26→20:44)
[2021-06-02] MEDS: Famotidine 20 MG TAB PO SCH (20:44)
[2021-06-02] MEDS: Cyclobenzaprine 10 MG TAB PO PRN (20:44)
[2021-06-02] MEDS: Ibuprofen 200 MG TAB PO PRN (20:45)
[2021-06-02] MEDS: traMADol HCl 50 MG TAB PO PRN (20:46)
[2021-06-02] MEDS: Morphine 2 MG/ML VIAL SLOW IVP PRN ×2 (20:52→22:58)
[2021-06-02] MEDS ORDERED: Zolpidem Tartrate 5 MG TAB PO PRN (21:21)
[2021-06-03] MEDS: Acetaminophen 500 MG TAB PO SCH ×5 (00:59→23:07)
[2021-06-03] MEDS: traMADol HCl 50 MG TAB PO SCH ×3 (00:59→11:55)
[2021-06-03] MEDS: Morphine 2 MG/ML VIAL SLOW IVP PRN ×4 (00:59→11:30)
[2021-06-03] MEDS: Sodium Chloride 0.9% 1,000 ML IV SCH ×3 (03:28→22:07)
[2021-06-03] MEDS: Ibuprofen 200 MG TAB PO PRN (05:31)
[2021-06-03] MEDS: Cyclobenzaprine 10 MG TAB PO PRN (05:31)
[2021-06-03] MEDS: traMADol HCl 50 MG TAB PO PRN (05:32)
[2021-06-03 06:12] LABS: #Eosinphils 0.1 thou/uL (0.0-0.7); #Lymphocytes 3.6 thou/uL (1.20-3.40); #Monocytes 1.2 thou/uL (0.11-0.59); #Neutrophils 7.1 thou/uL (1.40-6.50); %Basophils 0.2 % (0.0-1.0); %Eosinophils 0.7 % (0.0-10.0); %Lymphocytes 29.8 % (21.0-51.0); %Monocytes 10.3 % (0.0-10.0); %Neutrophils 59.1 % (42.0-75.0); Hemoglobin 13.2 g/dL (14.0-18.0); Mean Corpuscular Hemoglobin 32.9 pg (27.0-31.0); Mean Corpuscular Volume 94.2 fL (78.0-98.0); Mean Platelet Volume 7.4 fL (7.4-10.4); Platelet Count 336 thou/uL (130-400); RBC Distribution Width 12.3 % (11.5-14.5); Red Blood Cell (RBC) Count 4.02 mill/uL (4.70-6.10)
[2021-06-03 06:22] LABS: Anion Gap 12 mmol/L (10-20); BUN (Urea Nitrogen) 9 mg/dL (8.4-25.7); Calc. Creatinine Clearance 135 mL/min (70-130); Calcium 8.3 mg/dL (7.8-10.44); Carbon Dioxide 20 mmol/L (22-29); Chloride 108 mmol/L (98-107); Glucose 108 mg/dL (70-105); Magnesium 1.9 mg/dL (1.6-2.6); Phosphorus 3.1 mg/dL (2.3-4.7); Potassium 3.3 mmol/L (3.5-5.1); Sodium 137 mmol/L (136-145)
[2021-06-03] MEDS ORDERED: CEFAZOLIN 2 GM in Premix Bag 1 BAG IVPB SCH (07:15)
[2021-06-03] MEDS: Famotidine 20 MG TAB PO SCH ×2 (09:05→20:44)
[2021-06-03] MEDS ORDERED: Midazolam HCl 2 mg/2 ml Vial ONE (12:48)
[2021-06-03] MEDS ORDERED: Fentanyl 100 MCG/2 ML VIAL ONE ×3 (12:48→16:29)
[2021-06-03] MEDS ORDERED: Fentanyl 100 MCG/2 ML VIAL IV PRN (13:22)
[2021-06-03] MEDS ORDERED: Promethazine HCl 25 MG/ML VIAL IM PRN (13:30)
[2021-06-03] MEDS ORDERED: traMADol HCl 50 MG TAB PO PRN ×2 (13:30)
[2021-06-03] MEDS ORDERED: Ondansetron PF 4 MG/2 ML Vial IVP PRN (13:30)
[2021-06-03] MEDS ORDERED: Zolpidem Tartrate 5 MG TAB PO PRN (13:30)
[2021-06-03] MEDS ORDERED: Ropivacaine 0.2% 550 ML 550 ML NERVE BLCK SCH (13:30)
[2021-06-03] MEDS ORDERED: HYDROcodone/Acetaminophen 10/325 mg Tablet PO PRN ×2 (13:30)
[2021-06-03] MEDS ORDERED: Tranexamic Acid 1,000 MG/10 ML VIAL ONE (13:38)
[2021-06-03] MEDS ORDERED: Sodium Chloride 0.9% 100 ML ONE (13:38)
[2021-06-03] MEDS: VANCOMYCIN 1.75 GM/350 ML BAG 1.75 GM in Premix Bag 1 BAG IVPB SCH (13:39)
[2021-06-03] MEDS ORDERED: Lidocaine 1% PF 5 ML VIAL ONE (14:33)
[2021-06-03] MEDS ORDERED: Ropivacaine 0.5% HCl/PF (150 MG/30 ML VIAL) ONE (14:33)
[2021-06-03] MEDS ORDERED: Rocuronium Bromide 10 MG/ML (10ML VIAL) ONE ×2 (14:33)
[2021-06-03] MEDS ORDERED: ePHEDrine 50 MG/ML VIAL ONE (14:33)
[2021-06-03] MEDS ORDERED: PROPOFOL 200 MG/20 ML VIAL ONE (14:33)
[2021-06-03] MEDS ORDERED: Dexamethasone 20 MG/5 ML VIAL ONE (14:33)
[2021-06-03] MEDS ORDERED: PHENYLEPHRINE-NS 100 MCG/ML 10 ML SYRINGE ONE (14:33)
[2021-06-03] MEDS ORDERED: Fentanyl 100 MCG/2 ML VIAL SLOW IVP PRN (14:33)
[2021-06-03] MEDS ORDERED: Glycopyrrolate 0.2 MG/ML 5 ML SYRINGE ONE (14:33)
[2021-06-03] MEDS ORDERED: Ondansetron PF 4 MG/2 ML Vial ONE (14:33)
[2021-06-03] MEDS ORDERED: Esmolol 100 MG/10 ML VIAL ONE (14:33)
[2021-06-03] MEDS ORDERED: Ropivacaine 2% HCl/PF (20 MG/10 ML VIAL) ONE (14:33)
[2021-06-03] MEDS ORDERED: Phenylephrine 10 MG/ML VIAL ONE (15:53)
[2021-06-03] MEDS: Ketorolac Tromethamine 30 MG/ML VIAL IVP SCH ×2 (18:01→23:07)
[2021-06-03] MEDS ORDERED: Zolpidem Tartrate 5 MG TAB ONE (20:45)
[2021-06-03] MEDS ORDERED: Lisinopril 10 MG TAB PO SCH (21:00)
[2021-06-03] MEDS ORDERED: Melatonin 3 MG TAB PO SCH (21:00)
[2021-06-03] MEDS: CEFAZOLIN 2 GM in Premix Bag 1 BAG IVPB SCH (23:06)
[2021-06-04] MEDS: Cyclobenzaprine 10 MG TAB PO PRN (01:22)
[2021-06-04] MEDS: VANCOMYCIN 1.75 GM/350 ML BAG 1.75 GM in Premix Bag 1 BAG IVPB SCH ×2 (01:30→12:36)
[2021-06-04] MEDS ORDERED: diphenhydrAMINE 25 MG CAP PO SCH (03:15)
[2021-06-04] MEDS: HYDROcodone/Acetaminophen 10/325 mg Tablet PO PRN ×3 (05:02→17:00)
[2021-06-04] MEDS: Ketorolac Tromethamine 30 MG/ML VIAL IVP SCH ×2 (05:03→12:35)
[2021-06-04] MEDS: CEFAZOLIN 2 GM in Premix Bag 1 BAG IVPB SCH ×2 (05:04→14:54)
[2021-06-04] MEDS: Sodium Chloride 0.9% 1,000 ML IV SCH ×2 (05:39→15:55)
[2021-06-04] MEDS: Acetaminophen 500 MG TAB PO SCH ×2 (05:40→14:55)
[2021-06-04] MEDS: Famotidine 20 MG TAB PO SCH (08:40)
[2021-06-04] MEDS ORDERED: Potassium Chloride 20 MEQ TAB PO SCH (08:45)
[2021-06-04] MEDS ORDERED: Loratadine 10 MG TAB PO SCH (09:00)
[2021-06-04] MEDS ORDERED: Enoxaparin Sodium 30 MG/0.3 ML SYRINGE SC SCH (09:00)
[2021-06-04] MEDS ORDERED: Fluticasone Propionate Nasal Spray 16 gm Bottle NASAL SCH (09:00)
[2021-06-04 16:10] VITALS: BP 140/74; TEMP 98.4
[2021-06-05] MEDS ORDERED: Ibuprofen 200 MG TAB PO PRN (18:00)
== END 2021-06-04 17:57 | disposition home or self-care (01) | DRG 483 ==
LOC: ERS 07:29 → SDC 14:17 → SJJU 16:00 → OBSVTOIN 06-04 11:22
PROVIDERS: ADMIT Surgery; ATTEND Surgery
PROC: 0PSDXZZ Reposition Left Humeral Head, External Approach (ICD-10-PCS; 2021-06-02)
PROC: 3E0T3BZ Introduction of Anesthetic Agent into Peripheral Nerves and Plexi, Percutaneous Approach (ICD-10-PCS; 2021-06-02)
PROC: 0RRK00Z Replacement of Left Shoulder Joint with Reverse Ball and Socket Synthetic Substitute, Open Approach (ICD-10-PCS; principal; 2021-06-03)
DX: S42.252A Displaced fracture of greater tuberosity of left humerus, initial encounter for closed fracture (principal); M10.9 Gout, unspecified; S06.0X0A Concussion without loss of consciousness, initial encounter; E87.6 Hypokalemia; E83.39 Other disorders of phosphorus metabolism; F41.9 Anxiety disorder, unspecified; F19.11 Other psychoactive substance abuse, in remission; F32.9 Major depressive disorder, single episode, unspecified; G47.00 Insomnia, unspecified; W18.30XA Fall on same level, unspecified, initial encounter; Z20.822 Contact with and (suspected) exposure to COVID-19; Y92.009 Unspecified place in unspecified non-institutional (private) residence as the place of occurrence of the external cause; Y93.9 Activity, unspecified; S42.142A Displaced fracture of glenoid cavity of scapula, left shoulder, initial encounter for closed fracture
CPT/HCPCS: 36415; 36416; 71045; 76000; 80048; 80053; 80307; 83735; 84100; 84145; 85025; 93005; 96365; 96366; 96367; 96372; 96374; 96375; 96376; 99152; A4306; C1713; G0378; G0390; J0360; J0690; J1100; J1650; J1885; J2250; J2270; J2370; J2405; J2704; J2795; J3010; J3370; J3490; J7030; U0002; U0005